=== PATIENT | female | born 1975 | race Two or more races ===

== ENCOUNTER 2017-11-22 14:21 | Inpatient (IN) | payer OTHER ==
[2017-11-22 14:29] VITALS: BMI 21.2
[2017-11-22] MEDS ORDERED: ONDANSETRON 4 MG/2 ML VIAL IVPUSH ONE ×2 (14:35→16:26)
[2017-11-22] MEDS ORDERED: ACETAMINOPHEN 1000 MG/100 ML VIAL (NON FORMULARY) IVPB ONE (14:35)
[2017-11-22] MEDS ORDERED: SODIUM CHLORIDE 1,000 ML IV STA ×2 (14:35→17:27)
[2017-11-22] MEDS ORDERED: ONDANSETRON 4 MG/2 ML VIAL ONE ×2 (14:49→16:32)
[2017-11-22] MEDS ORDERED: ACETAMINOPHEN INJECTION 100 ML IVPB ONE (14:49)
[2017-11-22] MEDS ORDERED: morphine CARPU-JECT 4 MG/1 ML DISP.SYRIN IVPUSH ONE (14:49)
[2017-11-22] MEDS ORDERED: morphine SULFATE 4 MG/ML VIAL ONE (14:50)
[2017-11-22 14:57] LABS: BASO % 0.7 % (0-2.0); EOS % 0.2 % (0-4.5); HEMATOCRIT 37.6 % (32.4-45.2); LYMPH % 18.1 % (8-40); MCH 24.1 pg (25.7-33.7); MEAN CELL VOLUME 75.5 fl (80-96); MEAN PLT VOLUME 8.1 fl (7.5-11.1); MONO % 3.2 % (3.8-10.2); NEUT % 77.8 % (42.8-82.8); PLATELET COUNT 342 K/MM3 (134-434); RBC 4.98 M/mm3 (3.60-5.2); RDW 17.3 % (11.6-15.6)
--- NOTE | 2017-11-22 15:01 | PDOC ---
History of Present Illness - General Chief Complaint: Pain, Acute Stated Complaint: ABD PAIN,VOMITING Time Seen by Provider: 11/22/17 14:28 History Source: Patient Exam Limitations: No Limitations - History of Present Illness Initial Comments: 11/22/17 14:55 Patient is a 42F with history of here today complaining of sudden onset of lower abdominal pain with nausea and vomiting this morning. Patient denies fevers, endorses chills. Denies blood in vomit. Last bowel movement this morning. Denies sick contacts and denies possible food poisoning. Denies dysuria and hematuria. Denies history of kidney stones. Patient denies pelvic pain and vaginal pain. States that she is currently on her period. Patient told triage she may be . Endorses marijuana use on weekends, last use last night. Past History - Past Medical History Allergies/Adverse Reactions: Allergies Allergy/AdvReac Type Severity Reaction Status Date / Time Penicillins Allergy Verified 11/22/17 14:28 Home Medications: Ambulatory Orders NK [No Known Home Medication] 11/22/17 COPD: No - Suicide/Smoking/Psychosocial Hx Smoking History: Never smoked Review of Systems - Review of Systems Comments:: 11/22/17 14:59 GENERAL/CONSTITUTIONAL: No fever +chills. No weakness. HEAD, EYES, EARS, NOSE AND THROAT: No change in vision. No sore throat. CARDIOVASCULAR: No chest pain or shortness of breath RESPIRATORY: No cough, wheezing, or hemoptysis. GASTROINTESTINAL: +nausea, +vomiting, no diarrhea or constipation. GENITOURINARY: No dysuria, frequency, or change in urination. MUSCULOSKELETAL: No joint or muscle swelling or pain. No neck or back pain. SKIN: No rash NEUROLOGIC: No headache, vertigo, loss of consciousness, or change in strength/ sensation. ENDOCRINE: No increased thirst. No abnormal weight change HEMATOLOGIC/LYMPHATIC: No anemia, easy bleeding, or history of blood clots. ALLERGIC/IMMUNOLOGIC: No hives or skin allergy. *Physical Exam - Vital Signs Last Vital Signs Temp Pulse Resp BP Pulse Ox 98.9 F 103 H 18 131/78 100 11/22/17 14:28 11/22/17 14:28 11/22/17 14:28 11/22/17 14:28 11/22/17 14:28 - Physical Exam Comments: 11/22/17 15:00 GENERAL: Awake, alert, and fully oriented, in acute distress, unable to lay still HEAD: No signs of trauma, normocephalic, atraumatic EYES: PERRLA, EOMI, sclera anicteric, conjunctiva clear ENT: Auricles normal inspection, hearing grossly normal, nares patent, oropharynx clear without exudates. Moist mucosa NECK: Normal ROM, supple, no lymphadenopathy, JVD, or masses LUNGS: No distress, speaks full sentences, clear to auscultation bilaterally HEART: Regular rate and rhythm, normal S1 and S2, no murmurs, rubs or gallops, peripheral pulses normal and equal bilaterally. ABDOMEN: Soft, tender in LLQ, RLQ, suprapubic region, normoactive bowel sounds. No guarding, no rebound. No masses EXTREMITIES: Normal inspection, Normal range of motion, no edema. No clubbing or cyanosis. NEUROLOGICAL: Cranial nerves II through XII grossly intact. Normal speech, no focal sensorimotor deficits SKIN: Warm, Dry, normal turgor, no rashes or lesions noted. ED Treatment Course - LABORATORY CBC & Chemistry Diagram: 11/22/17 14:47 11/22/17 14:47 - RADIOLOGY Radiology Studies Ordered: Category Date Time Status TRANSVAGINAL ULTRASOUND US [US] Stat Ultrasound 11/22/17 14:53 Ordered Medical Decision Making - Medical Decision Making 11/22/17 15:01 Patient is 42F with history of here today with abd pain and vomiting. Vital signs notable for slight tachycardia. Patient retching. DDx includes, but is not limited to: nephrolithiasis, ovarian torsion, hyperemesis gravidarum, cannaboid hyperemesis. Abdominal labs drawn, will start imaging with TVUS. Treated with zofran, tylenol, morphine, fluids. 11/22/17 16:23 Pelvic exam shows normal external genitalia, no adnexaal tenderness, no cmt. Reassessed, still retching. Diaphoretic. Given additional zofran. 11/22/17 19:42 Laboratory Tests 11/22/17 11/22/17 14:47 14:47 WBC 9.0 Hgb 12.0 Plt Count 342 Serum , Qual Negative CBC normal. Preg neg, CMP reassuring, lipase negative. TVUS shows normal flow to ovaries, no cysts. 11/22/17 22:09 CT shows gallbladder distention and pericholecystic fluid. Patient sent for GB US. Signed out to Dr Davila *DC/Admit/Observation/Transfer Diagnosis at time of Disposition: Abdominal pain - Discharge Dispostion Condition at time of disposition: Stable - Referrals - Patient Instructions - Post Discharge Activity
[2017-11-22 15:22] LABS: ALBUMIN 4.4 g/dl (3.4-5.0); ALK PHOS 58 U/L (45-117); ANION GAP 13 MMOL/L (8-16); BILIRUBIN,TOTAL 0.5 mg/dL (0.2-1); BLOOD UREA NITROGEN 9 mg/dL (7-18); CALCIUM 9.4 mg/dL (8.5-10.1); CHLORIDE 107 mmol/L (98-107); CO2 20 mmol/L (21-32); CREATININE 0.7 mg/dL (0.55-1.3); GLUCOSE,RANDOM 108 mg/dL (74-106); LIPASE 102 U/L (73-393); SGOT/AST 14 U/L (15-37); SGPT/ALT 17 U/L (13-61); SODIUM 140 mmol/L (136-145); TOT PROT 8.8 g/dl (6.4-8.2)
--- NOTE | 2017-11-22 18:12 | PDOC ---
Attending Attestation - Resident Resident Name: JaxTod case - ED Attending Attestation I have performed the following: I have examined & evaluated the patient, The case was reviewed & discussed with the resident, I agree w/resident's findings & plan, Exceptions are as noted - HPI HPI: 11/22/17 18:09 42 F with no PMH presents to ED with abdominal pain and vomiting. Pt states that she vomited several times today. Complains of diffuse abdominal pain. Denies F/C. Denies diarrhea/constipation. Pt states that she had a similar experience when she was and had hyperemesis but does not believe she's . Pt denies dysuria. Denies CP/SOB. Denies vaginal bleeding/discharge. Pt admits to occasional marijuana use, last use yesterday. Occasional ETOH. Denies other substances. - Physicial Exam PE: 11/22/17 18:10 "GENERAL: Awake, alert, and fully oriented, in no acute distress. HEAD: No signs of trauma EYES: PERRLA, EOMI, sclera anicteric, conjunctiva clear ENT: Auricles normal inspection, hearing grossly normal, nares patent, oropharynx clear without exudates. Moist mucosa NECK: Nontender, no stepoffs, Normal ROM, supple, no lymphadenopathy, JVD, or masses LUNGS: Breath sounds equal, clear to auscultation bilaterally. No wheezes, and no crackles HEART: Regular rate and rhythm, normal S1 and S2, no murmurs, rubs or gallops ABDOMEN: Soft, + diffuse TTP, normoactive bowel sounds. No guarding, no rebound. No masses EXTREMITIES: Normal range of motion, no edema. No clubbing or cyanosis. No cords, erythema, or tenderness NEUROLOGICAL: Cranial nerves II through XII intact. 5/5 strength and sensation in all extremities, Normal speech, normal gait, normal cerebellar function SKIN: Warm, Dry, normal turgor, no rashes or lesions noted." - Medical Decision Making 11/22/17 18:10 42 F with diffuse abdominal pain, N+V. UPT negative today. Will r/o pelvic pathology with TVUS. - Labs - TVUS - Consider CT - IVF, zofran
--- NOTE | 2017-11-22 22:02 | PDOC ---
*Physical Exam - Vital Signs Last Vital Signs Temp Pulse Resp BP Pulse Ox 98.8 F 92 H 17 117/64 100 11/22/17 21:48 11/22/17 21:48 11/22/17 21:48 11/22/17 21:48 11/22/17 21:48 - Physical Exam Comments: 11/22/17 21:56 Patient's care endorsed to me by Dr. Gibson at the end of his shift. This is a 42 YOF who p/w abdominal pain radiating to her back, then subsequently vomiting, then a sudden onset low abdominal pain which seems to have been precipitated by vomiting (e.g. muscle strain). On exam she was wretching in the ED, +suprapubic ttp, pelvic exam normal, and nausea was unresolved with multiple doses of antiemetics. TVUS was normal, abdominal/pelvic CT was done, showed pericholecystic fluid and GB distention, now pending GB US, likely needs admission. General Appearance: Yes: Nourished, Appropriately Dressed, Other (answers questions appropriately, appears relatively comfortable while at rest, slight uncomfortable appearance while laying down on bed from standing position). No: Apparent Distress Cardiovascular: positive: Regular Rhythm, Regular Rate, S1, S2. negative: JVD, Murmur Vascular Pulses: Dorsalis-Pedis (R): 2+, Doralis-Pedis (L): 2+ Comments:: bilateral radial pulses 2+ and equal Gastrointestinal/Abdominal: positive: Normal Bowel Sounds, Tender (epigastric and RUQ ttp which is mild-moderate but there is slight involuntary guarding), Flat, Soft. negative: Pulsatile Mass, Protuberent, Distended, Hernia, Hepatomegaly, Spleenomegaly Musculoskeletal: positive: Normal Inspection. negative: CVA Tenderness Extremity: positive: Normal Capillary Refill, Normal Inspection, Normal Range of Motion. negative: Tender Integumentary: positive: Normal Color, Dry, Warm. negative: Jaundice, Pale, Cold, Clammy, Diaphoresis, Rash, Ecchymosis Neurologic: positive: accounts receivable collector II-XII NML intact (grossly), Fully Oriented, Alert, Normal Mood/Affect, Normal Response, Motor Strength 5/5. negative: Facial Droop , Confused ED Treatment Course - LABORATORY CBC & Chemistry Diagram: 11/25/17 06:00 11/25/17 06:00 - ADDITIONAL ORDERS Additional order review: Laboratory Results 11/22/17 11/22/17 14:47 14:47 Sodium 140 Potassium 4.0 Chloride 107 Carbon Dioxide 20 L Anion Gap 13 BUN 9 Creatinine 0.7 Creat Clearance w eGFR > 60 Random Glucose 108 H Calcium 9.4 Total Bilirubin 0.5 AST 14 L ALT 17 Alkaline Phosphatase 58 Total Protein 8.8 H Albumin 4.4 Lipase 102 Serum , Qual Negative 11/22/17 14:47 RBC 4.98 MCV 75.5 L MCHC 32.0 RDW 17.3 H MPV 8.1 Neutrophils % 77.8 Lymphocytes % 18.1 Monocytes % 3.2 L Eosinophils % 0.2 Basophils % 0.7 - Medications Given in the ED: ED Medications Discontinued Medications Generic Name Dose Route Start Last Admin Trade Name Freq PRN Reason Stop Dose Admin Acetaminophen 1,000 mg 11/22/17 14:35 11/22/17 15:05 Ofirmev Injection - IVPB 11/22/17 14:36 1,000 mg ONCE ONE Administration Sodium Chloride 1,000 mls @ 1,000 mls/hr 11/22/17 14:35 11/22/17 15:05 Normal Saline - IV 11/22/17 15:34 1,000 mls/hr ASDIR STA Administration Sodium Chloride 1,000 mls @ 1,000 mls/hr 11/22/17 17:27 11/22/17 18:22 Normal Saline - IV 11/22/17 18:26 1,000 mls/hr ASDIR STA Administration Morphine Sulfate 4 mg 11/22/17 14:49 11/22/17 15:05 Morphine Injection - IVPUSH 11/22/17 14:50 4 mg ONCE ONE Administration Ondansetron HCl 4 mg 11/22/17 14:35 11/22/17 15:05 Zofran Injection IVPUSH 11/22/17 14:36 4 mg ONCE ONE Administration Ondansetron HCl 4 mg 11/22/17 16:26 11/22/17 16:39 Zofran Injection IVPUSH 11/22/17 16:27 4 mg ONCE ONE Administration Medical Decision Making - Medical Decision Making 11/22/17 23:30 Adult female Pt p/w RUQ abdominal pain. Initial Vital Signs Temp Pulse Resp BP Pulse Ox 98.9 F 103 H 18 131/78 100 11/22/17 14:28 11/22/17 14:28 11/22/17 14:28 11/22/17 14:28 11/22/17 14:28 Exam: As noted in Physical Exam section. DDX IBNLT: cholecystitis (calculous vs. acalculous), choledocholithiasis, cholangitis, pancreatitis, appendicitis, gastritis, PUD, colitis, diverticulitis wwo abscess or perforation, AAA/AD, ACS, renal colic, obstructive uropathy, UTI/pyelonephritis, hernia, SBO, mesenteric/bowel ischemia , bowel perforation, malignancy, ovarian torsion, ovarian cyst, ectopic , PID, TOA, cervicitis, endometritis, salpingitis, oophoritis, Mitchell- Lopez-Mikel syndrome, primary dysmenorrhea, endometriosis, fibroids, constipation, gas, musculoskeletal, etc. W/U ordered: Labs as noted below, TVUS, CT A/P, GB US TX ordered by day team: Ofirmev, IVF, Morphine, Zofran TVUS: CT A/P: GB US: Laboratory Tests 11/22/17 11/22/17 11/22/17 14:47 14:47 14:47 WBC 9.0 RBC 4.98 Hgb 12.0 Hct 37.6 MCV 75.5 L MCH 24.1 L MCHC 32.0 RDW 17.3 H Plt Count 342 MPV 8.1 Absolute Neuts (auto) 7.0 Neutrophils % 77.8 Lymphocytes % 18.1 Monocytes % 3.2 L Eosinophils % 0.2 Basophils % 0.7 Nucleated RBC % 0 Sodium 140 Potassium 4.0 Chloride 107 Carbon Dioxide 20 L Anion Gap 13 BUN 9 Creatinine 0.7 Creat Clearance w eGFR > 60 Random Glucose 108 H Calcium 9.4 Total Bilirubin 0.5 AST 14 L ALT 17 Alkaline Phosphatase 58 Total Protein 8.8 H Albumin 4.4 Lipase 102 Serum , Qual Negative Urine Color Urine Appearance Urine pH Ur Specific [place] Urine Protein Urine Glucose (UA) Urine Ketones Urine Blood Urine Nitrite Urine Bilirubin Urine Urobilinogen Ur Leukocyte Esterase Urine WBC (Auto) Urine RBC (Auto) Ur Epithelial Cells Opiates Screen Methadone Screen Barbiturate Screen Phencyclidine Screen Ur Amphetamines Screen MDMA (Ecstasy) Screen Benzodiazepines Screen Cocaine Screen U Marijuana (THC) Screen 11/22/17 11/22/17 21:50 21:50 WBC RBC Hgb Hct MCV MCH MCHC RDW Plt Count MPV Absolute Neuts (auto) Neutrophils % Lymphocytes % Monocytes % Eosinophils % Basophils % Nucleated RBC % Sodium Potassium Chloride Carbon Dioxide Anion Gap BUN Creatinine Creat Clearance w eGFR Random Glucose Calcium Total Bilirubin AST ALT Alkaline Phosphatase Total Protein Albumin Lipase Serum , Qual Urine Color Ltyellow Urine Appearance Clear Urine pH 5.0 Ur Specific [place] 1.060 H Urine Protein Negative Urine Glucose (UA) Negative Urine Ketones 1+ H Urine Blood 3+ H Urine Nitrite Negative Urine Bilirubin Negative Urine Urobilinogen Negative Ur Leukocyte Esterase Negative Urine WBC (Auto) 10 Urine RBC (Auto) 115 Ur Epithelial Cells Rare Opiates Screen Positive A* Methadone Screen Negative Barbiturate Screen Negative Phencyclidine Screen Negative Ur Amphetamines Screen Negative MDMA (Ecstasy) Screen Negative Benzodiazepines Screen Negative Cocaine Screen Negative U Marijuana (THC) Screen Positive A* Reassessment: Patient remains moderately ttp in RUQ, mildly ttp epigastrium. No longer vomiting. Vital Signs Temperature 98.8 F 11/22/17 21:48 Pulse Rate 92 H 11/22/17 21:48 Respiratory Rate 17 11/22/17 21:48 Blood Pressure 117/64 11/22/17 21:48 O2 Sat by Pulse Oximetry (%) 100 11/22/17 21:48 11/22/17 23:31 The Pts symptoms persist despite ED treatments; multiple analgesics. The Pt is unsafe for discharge at this time. They require further hospital observation, workup, and treatment. [facility] sent to [facility] for admission. Blank Decision to Admit order placed. *DC/Admit/Observation/Transfer Diagnosis at time of Disposition: Abdominal pain Qualifiers: Abdominal location: unspecified location Qualified Code(s): R10.9 - Unspecified abdominal pain Vomiting Qualifiers: Vomiting type: unspecified Vomiting Intractability: non-intractable Nausea presence: with nausea Qualified Code(s): R11.2 - Nausea with vomiting, unspecified - Discharge Dispostion Condition at time of disposition: Guarded Decision to Admit order: Yes - Referrals - Patient Instructions - Post Discharge Activity
[2017-11-22 22:09] LABS: URINE APPEARANCE CLEAR; URINE BILIRUBIN NEGATIVE (<2.0 mg/dL); URINE COLOR LTYELLOW; URINE GLUCOSE (UA) NEGATIVE (NEGATIVE); URINE KETONE 1+ (NEGATIVE); URINE LEUK ESTERASE NEGATIVE (NEGATIVE); URINE NITRITE NEGATIVE (NEGATIVE); URINE PROTEIN NEGATIVE (NEGATIVE); URINE UROBILINOGEN NEGATIVE mg/dL (0.2-1.0)
[2017-11-22 22:14] LABS: EPI CELLS RARE /HPF (FEW)
[2017-11-22 22:19] LABS: COCAINE, UR NEGATIVE ng/ml (CUTOFF=300); METHADONE, UR NEGATIVE ng/ml (CUTOFF=300); PHENCYCLIDINE,URINE NEGATIVE ng/ml (CUTOFF=25); URINE BARBITURATES NEGATIVE ng/ml (CUTOFF=200); URINE BENZODIAZEPINES NEGATIVE ng/ml (CUTOFF=200)
[2017-11-22 22:22] LABS: URINE AMPHETAMINES NEGATIVE ng/ml (CUTOFF=500)
[2017-11-22 22:33] LABS: OPIATES, URI POSITIVE ng/ml (CUTOFF=300)
--- NOTE | 2017-11-23 00:25 | PN ---
Teaching Attending Note Name of Resident: Arlene Starr ATTENDING PHYSICIAN STATEMENT I saw and evaluated the patient. I reviewed the resident's note and discussed the case with the resident. I agree with the resident's findings and plan as documented. SUBJECTIVE: Patient is a 42 year old woman with history of penicillin allergy and presenting with complaint of sudden onset of lower abdominal pain with nausea and vomiting this morning. Patient denies fevers, but had chills. Denies blood in vomit. Last bowel movement this morning. Denies sick contacts, possible food poisoning, dysuria, hematuria, history of kidney stones, pelvic pain or vaginal pain. She wretching in the ER and vomited. States that she is currently on her period. Patient told triage she may be though serum test was negative. Uses marijuana on weekends. Urine toxicology showed marijuana and opiates. Pelvic exam and transvaginal US by ER staff were negative. CT showed gall bladder distension and pericholecystic fluid. OBJECTIVE: Alert Vital Signs Period Temp Pulse Resp BP Sys/Meléndez Pulse Ox Last 24 Hr 98.8 F-98.9 F 92-103 17-18 117-131/64-78 100-100 HEENT: No Jaundice, eye redness or discharge, PERRLA, EOMI. Normocephalic, atraumatic. External ears are normal and hearing is grossly intact. No nasal discharge. Neck: Supple, nontender. No palpable adenopathy or thyromegaly. No JVD Chest: Good effort. Clear to auscultation and percussion. Heart: Regular. No S3, rub or murmur Abdomen: Not distended, soft, suprapubic and RUQ tenderness and no HSM. No rebound or guarding. Normoactive bowel sounds. Ext: Peripheral pulses intact. No leg edema. Skin: Warm and dry. No petechiae, rash or ecchymosis. Neuro: Alert. Oriented x3. CN 2-12 grossly intact. Sensation grossly intact in all four extremities and DTR are symmetric. Home Medications Medication Instructions Recorded NK [No Known Home Medication] 11/22/17 Abnormal Lab Results 11/22/17 11/22/17 11/22/17 14:47 14:47 21:50 MCV 75.5 L MCH 24.1 L RDW 17.3 H Monocytes % 3.2 L Carbon Dioxide 20 L Random Glucose 108 H AST 14 L Total Protein 8.8 H Ur Specific [employer] 1.060 H Urine Ketones 1+ H Urine Blood 3+ H Opiates Screen U Marijuana (THC) Screen 11/22/17 21:50 MCV MCH RDW Monocytes % Carbon Dioxide Random Glucose AST Total Protein Ur Specific [employer] Urine Ketones Urine Blood Opiates Screen Positive A* U Marijuana (THC) Screen Positive A* Current Medications Generic Name Dose Route Start Last Admin Trade Name Freq PRN Reason Stop Dose Admin Enoxaparin Sodium 40 mg 11/23/17 10:00 Lovenox - SQ DAILY [facility] Ceftriaxone Sodium 1 gm/ 100 mls @ 200 mls/hr 11/23/17 10:00 Dextrose IVPB DAILY [facility] Protocol Metronidazole 500 mg in 100 mls @ 100 mls/hr 11/23/17 02:00 Flagyl 500mg Premixed Ivpb - IVPB Q8H-IV KRAEEM Sodium Chloride 1,000 mls @ 83 mls/hr 11/23/17 01:30 Normal Saline - IV ASDIR [facility] Insulin Aspart 1 vial 11/23/17 07:00 Novolog Vial Sliding Scale - SQ ACHS [facility] Protocol Morphine Sulfate 4 mg 11/23/17 01:30 Morphine Injection - IVPUSH Q4H PRN PAIN LEVEL 7 - 10 Ondansetron HCl 4 mg 11/23/17 01:36 Zofran Injection IVPUSH Q4H PRN NAUSEA AND/OR VOMITING ASSESSMENT AND PLAN: 1. Possible cholecystitis - Will get an MRCP and treat with IV Rocephin and Flagyl. Use morphine for pain control and give IV NS at 100 ml/hour. Consult ID , GI and Surgery.. 2. DVT prophylaxis - Lovenox 40 mg SQ q 24 hours. 3. Advance directives - Full code
[2017-11-23] MEDS ORDERED: morphine SULFATE 4 MG/ML VIAL IVPUSH PRN (01:30)
[2017-11-23] MEDS: SODIUM CHLORIDE 1,000 ML IV SCH ×2 (03:21→18:32)
--- NOTE | 2017-11-23 05:16 | HP ---
CHIEF COMPLAINT: Abdominal pain PCP: None HISTORY OF PRESENT ILLNESS: 42 y/o F with PMHx of GERD was BIBEMS with sudden onset Lower Abdominal pain. Patient woke up this morning feeling lower abdominal cramps (currently menstruating) and took tylenol for pain. After having a BM this morning, All of a sudden, she began to experience a lower abdominal pain. She describes it as a Dull Ache in the RUQ and RLQ, 10/10 at worst, that came on all of a sudden. The pain was then followed by multiple episodes of nonbloody, green vomiting. She then felt she could not breathe and called for EMS. This is the first time she has experienced these symptoms. Patient says she was able to tolerate dinner and went to bed without experiencing any symptoms. She is unable to identify any triggering or reliving factors. She additionally experienced subjective fevers and chills. Denies any Chest pain and SOB. Currently her pain is now controlled, 4/10 and she no longer experiencing nausea. Patient has a hx of chlamydia in her 20's. Denies any hx of Kidney stones or UTI. 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 Residence: Home with Children and dog Ambulation: On her own Family History: Mother: MVP, Thyroid issues, Gall bladder issues (will have GB surgery this week as per patient) Father: HTN, HLD, Glaucoma Allergies Penicillins Allergy (Verified 11/22/17 14:28) HOME MEDICATIONS: Home Medications Medication Instructions Recorded NK [No Known Home Medication] 11/22/17 REVIEW OF SYSTEMS CONSTITUTIONAL: Present: Subjective fever, chills Absent: diaphoresis, generalized weakness, malaise, loss of appetite, weight change HEENT: Absent: rhinorrhea, nasal congestion, throat pain, throat swelling, difficulty swallowing, mouth swelling, ear pain, eye pain, visual changes CARDIOVASCULAR: Absent: chest pain, syncope, palpitations, irregular heart rate, lightheadedness , peripheral edema RESPIRATORY: Absent: cough, shortness of breath, dyspnea with exertion, orthopnea, wheezing, stridor, hemoptysis GASTROINTESTINAL: Present: abdominal pain, nausea, vomiting, Absent: abdominal distension, diarrhea, constipation, melena, hematochezia GENITOURINARY: Absent: dysuria, frequency, urgency, hesitancy, hematuria, flank pain, genital pain MUSCULOSKELETAL: Absent: myalgia, arthralgia, joint swelling, back pain, neck pain SKIN: Absent: rash, itching, pallor HEMATOLOGIC/IMMUNOLOGIC: Absent: easy bleeding, easy bruising, lymphadenopathy, frequent infections ENDOCRINE: Absent: unexplained weight gain, unexplained weight loss, heat intolerance, cold intolerance NEUROLOGIC: Absent: headache, focal weakness or paresthesias, dizziness, unsteady gait, seizure, mental status changes, bladder or bowel incontinence PSYCHIATRIC: Absent: anxiety, depression, suicidal or homicidal ideation, hallucinations. PHYSICAL EXAMINATION Vital Signs - 24 hr 11/22/17 11/22/17 11/23/17 14:28 21:48 01:34 Temperature 98.9 F 98.8 F 98.6 F Pulse Rate 103 H Pulse Rate [ 92 H 84 Apical] Respiratory 18 17 18 Rate Blood Pressure 131/78 Blood Pressure 117/64 121/69 [Right Arm] O2 Sat by Pulse 100 100 100 Oximetry (%) 11/23/17 11/23/17 11/23/17 02:20 02:30 02:40 Temperature 98.4 F 98.4 F Pulse Rate 83 83 Pulse Rate [ Apical] Respiratory 18 18 Rate Blood Pressure 131/77 131/77 Blood Pressure [Right Arm] O2 Sat by Pulse 98 98 Oximetry (%) GENERAL: Awake, alert, and fully oriented, in no acute distress. HEAD: NCAT EYES: PERRLA, EOMI THROAT: Oropharynx clear without exudates. Moist mucous membranes. NECK: No JVD LUNGS: Breath sounds equal, clear to auscultation bilaterally. No wheezes. HEART: Regular rate and rhythm, normal S1 and S2 without murmur. ABDOMEN: Soft, Tender to palpation the RUQ, RLQ and Midepigastric regions. Not distended, normoactive bowel sounds, Negative murphys sign. No guarding MUSCULOSKELETAL: Right CVA tenderness EXTREMITIES: 2+ pulses, No calf tenderness. No peripheral edema. SKIN: Warm, dry, no rashes or lesions noted, normal capillary refill Laboratory Results - last 24 hr 11/22/17 11/22/17 11/22/17 14:47 14:47 14:47 WBC 9.0 RBC 4.98 Hgb 12.0 Hct 37.6 MCV 75.5 L MCH 24.1 L MCHC 32.0 RDW 17.3 H Plt Count 342 MPV 8.1 Absolute Neuts (auto) 7.0 Neutrophils % 77.8 Lymphocytes % 18.1 Monocytes % 3.2 L Eosinophils % 0.2 Basophils % 0.7 Nucleated RBC % 0 Sodium 140 Potassium 4.0 Chloride 107 Carbon Dioxide 20 L Anion Gap 13 BUN 9 Creatinine 0.7 Creat Clearance w eGFR > 60 Random Glucose 108 H Calcium 9.4 Total Bilirubin 0.5 AST 14 L ALT 17 Alkaline Phosphatase 58 Total Protein 8.8 H Albumin 4.4 Lipase 102 Serum , Qual Negative Urine Color Urine Appearance Urine pH Ur Specific [place] Urine Protein Urine Glucose (UA) Urine Ketones Urine Blood Urine Nitrite Urine Bilirubin Urine Urobilinogen Ur Leukocyte Esterase Urine WBC (Auto) Urine RBC (Auto) Ur Epithelial Cells Opiates Screen Methadone Screen Barbiturate Screen Phencyclidine Screen Ur Amphetamines Screen MDMA (Ecstasy) Screen Benzodiazepines Screen Cocaine Screen U Marijuana (THC) Screen 11/22/17 11/22/17 21:50 21:50 WBC RBC Hgb Hct MCV MCH MCHC RDW Plt Count MPV Absolute Neuts (auto) Neutrophils % Lymphocytes % Monocytes % Eosinophils % Basophils % Nucleated RBC % Sodium Potassium Chloride Carbon Dioxide Anion Gap BUN Creatinine Creat Clearance w eGFR Random Glucose Calcium Total Bilirubin AST ALT Alkaline Phosphatase Total Protein Albumin Lipase Serum , Qual Urine Color Ltyellow Urine Appearance Clear Urine pH 5.0 Ur Specific [place] 1.060 H Urine Protein Negative Urine Glucose (UA) Negative Urine Ketones 1+ H Urine Blood 3+ H Urine Nitrite Negative Urine Bilirubin Negative Urine Urobilinogen Negative Ur Leukocyte Esterase Negative Urine WBC (Auto) 10 Urine RBC (Auto) 115 Ur Epithelial Cells Rare Opiates Screen Positive A* Methadone Screen Negative Barbiturate Screen Negative Phencyclidine Screen Negative Ur Amphetamines Screen Negative MDMA (Ecstasy) Screen Negative Benzodiazepines Screen Negative Cocaine Screen Negative U Marijuana (THC) Screen Positive A* ASSESSMENT/PLAN: 42 y/o F with PMHx of GERD was BIBEMS with sudden onset Lower Abdominal pain accompanied with Nausea and vomiting. She experiences tenderness to palpation in the RUQ, RLQ and Midepigastric regions, Negative murphys sign and Right CVA tenderness. Her Serum test was negative. Her UTox was positive for Opiates and Marijuana use. CT A/P revealed mild gallbladder wall thickening with small amount of pericholecystic fluid but no calculus is seen. Abdominal ultrasound revealed gallbladder findings suggestive of Adenomyomatosis but no definite evidence of cholelithiasis or acute cholecystitis. Patient will be observed in med-surg. 1. RUQ Abdominal pain - Unclear etiology, possibly due to Adenomyomatosis VS Acute Cholecystitis - HIDA Scan ordered - NPO for possible procedure - Ceftriaxone 1gm daily, Metronidazole 500mg Q8H - Morphine 4mg Q4h PRN - Zogran 4mg Q4h PRN - NS @ 83 mls/hr - GI (Dr. Tang) consulted - General Surgery (Dr. Pierre) consulted - ID (Dr. Martinez) consulted 2. FEN - NS @ 83 mls/hr - Lytes WNL - NPO 3. PPx - DVT: Lovenox 40mg Dispo: Observe on Med-Surg Visit type - Emergency Visit Emergency Visit: Yes ED Registration Date: 11/22/17 Care time: The patient presented to the Emergency Department on the above date and was hospitalized for further evaluation of their emergent condition. - New Patient This patient is new to me today: Yes Date on this admission: 11/23/17 - Critical Care Critical Care patient: No Hospitalist Screening - Colonoscopy Questionnaire Colonoscopy Questionnaire: Colonoscopy Questionnaire - Patient: 50 - 75 years old and never had a screening colonoscopy: Unknown History of colon or rectal polyps, or CA: Unknown History of IBD, Crohn's disease or UC: Unknown History of abdominal radiation therapy as a child: Unknown - Relative: 1 with colon or rectal CA, or polyps at age 60 or younger: Unknown Colon or rectal CA diagnosed at age 45 or younger: Unknown Multiple relatives with colon or rectal CA: Unknown - Outcome: Screening Result: Negative Screen
[2017-11-23] MEDS: INSULIN SLIDING SCALE (NOVOLOG) 1 VIAL SQ SCH ×4 (06:05→22:00)
[2017-11-23 07:10] LABS: BASO % 0.4 % (0-2.0); EOS % 0.3 % (0-4.5); HEMATOCRIT 28.8 % (32.4-45.2); HEMOGLOBIN 9.1 GM/dL (10.7-15.3); LYMPH % 31.9 % (8-40); MCH 23.9 pg (25.7-33.7); MCHC 31.5 g/dl (32.0-36.0); MEAN CELL VOLUME 75.9 fl (80-96); MONO % 6.4 % (3.8-10.2); PLATELET COUNT 232 K/MM3 (134-434); RDW 16.9 % (11.6-15.6); WHITE BLOOD COUNT 6.6 K/mm3 (4.0-10.0)
--- NOTE | 2017-11-23 07:11 | CONSULT ---
Consult Consult Specialty:: General Surgery Reason for Consultation:: Abdominal pain - History of Present Illness Chief Complaint: Abdominal Pain History of Present Illness: 42 yo female PMH GERD was BIBEMS with sudden onset lower abdominal pain. Patient woke up this morning feeling lower abdominal cramps (currently menstruating) and took tylenol for pain. After having a BM this morning, All of a sudden, she began to experience a lower abdominal pain. She describes it as a Dull Ache in the RUQ and RLQ, 10/10 at worst, that came on all of a sudden. The pain was then followed by multiple episodes of nonbloody, green vomiting. She then felt she could not breathe and called for EMS. This is the first time she has experienced these symptoms. Patient says she was able to tolerate dinner and went to bed without experiencing any symptoms. She is unable to identify any triggering or reliving factors. She additionally experienced subjective fevers and chills. Denies any Chest pain and SOB. Currently her pain is now controlled, 4/10 and she no longer experiencing nausea. CT scan shows GB with pericholecystic fluid. HIDA show no cyst duct obstruction and normal gallbladder filling. She has had RUQ andominal pain for years. We were asked to assess - History Source History Provided By: Patient, Medical Record Limitations to Obtaining History: No Limitations - Past Medical History ...: No - Alcohol/Substance Use Hx Alcohol Use: No - Smoking History Smoking history: Never smoked - Social History Place of : [facility] History of Recent Travel: No Home Medications - Allergies Allergies/Adverse Reactions: Allergies Allergy/AdvReac Type Severity Reaction Status Date / Time Penicillins Allergy Verified 11/22/17 14:28 - Home Medications Home Medications: Ambulatory Orders NK [No Known Home Medication] 11/22/17 Review of Systems - Review of Systems Constitutional: denies: Chills, Fever Eyes: denies: Blurred Vision, Recent Change in Vision HENT: denies: Difficult Swallowing, Throat Pain Neck: denies: Pain on Movement, Tenderness Cardiovascular: denies: Chest Pain, Palpitations Respiratory: denies: Cough, SOB Gastrointestinal: reports: Abdominal Pain, Indigestion Genitourinary: denies: Discharge, Dysuria, Flank Pain, Frequency Breasts: reports: No Symptoms Reported. denies: Pain, Skin Changes Musculoskeletal: denies: Extremity Pain, Joint Swelling, Muscle Cramps, Muscle Weakness Integumentary: denies: Bruising, Change in Color, Pallor, Pruritis Neurological: denies: Seizure, Syncope Endocrine: denies: Unexplained Weight Gain, Unexplained Weight Loss Hematology/Lymphatic: denies: Easily Bruised, Excessive Bleeding Psychiatric: denies: Anxiety, Depression Physical Exam Vital Signs: Vital Signs Temperature 98.9 F 11/23/17 06:00 Pulse Rate 86 11/23/17 06:00 Respiratory Rate 16 11/23/17 06:00 Blood Pressure 123/86 11/23/17 06:00 O2 Sat by Pulse Oximetry (%) 98 11/23/17 02:40 Constitutional: Yes: Well Nourished, No Distress, Calm Eyes: Yes: Conjunctiva Clear, EOM Intact HENT: Yes: Atraumatic, Normocephalic Neck: Yes: Supple, Trachea Midline Cardiovascular: Yes: Regular Rate and Rhythm, S1, S2 Respiratory: Yes: Regular, CTA Bilaterally Gastrointestinal: Yes: Normal Bowel Sounds, Soft, Tenderness (epigastric, - murphys). No: Abdomen, Obese, Palpable Mass, Pulsatile Mass, Rectal Bleeding, Tenderness, Epigastrium, Tenderness, Rebound (minimal discomfort epigastrium) ...Rectal Exam: Yes: Deferred Renal/: No: CVA Tenderness - Left, CVA Tenderness - Right Extremities: No: Cool, Cyanosis Edema: No Peripheral Pulses WNL: Yes Integumentary: No: Incision, Jaundice, Pressure Ulcer Neurological: Yes: Alert, Oriented Psychiatric: Yes: Alert, Oriented Imaging - Results Cat Scan: Report Reviewed (Thickened lining of GB with pericholecystic fluid), Image Reviewed Ultrasound: Report Reviewed, Image Reviewed (GB wall thickeing no choledocholithiasis) MRI: Report Reviewed, Image Reviewed (HIDA negative) Problem List - Problems (1) Adenomyomatosis of gallbladder Assessment/Plan: 42yo female with Adenomyomatosis of GB with colic symptoms NPO and IVF hydration Recommend elective cholecystectcomy Discussed with patient risks, benefits and alternatives of laparoscopic possible open olivier cystectomy, including but not limited to bleeding, infection , injury to adjacent structures, leak or injury, intraabdominal abscess, incisional hernia, need for further procedures, ; alternatives include antibiotics, delayed or no surgery - risks of this include failure of nonoperative therapy, perforation, sepsis, recurrence, . Patient desires to proceed with operation - will take to OR for above. Informed consent signed for same. Thank you for the opportunity to participate in the care of this patient. Code(s): D13.5 - BENIGN NEOPLASM OF EXTRAHEPATIC BILE DUCTS (2) Biliary colic Code(s): K80.50 - CALCULUS OF BILE DUCT W/O CHOLANGITIS OR CHOLECYST W/O OBST (3) GERD (gastroesophageal reflux disease) Code(s): K21.9 - GASTRO-ESOPHAGEAL REFLUX DISEASE WITHOUT ESOPHAGITIS Qualifiers: Esophagitis presence: without esophagitis Qualified Code(s): K21.9 - Gastro -esophageal reflux disease without esophagitis
[2017-11-23 07:41] LABS: ALBUMIN 3.1 g/dl (3.4-5.0); ANION GAP 7 MMOL/L (8-16); BLOOD UREA NITROGEN 7 mg/dL (7-18); CALCIUM 7.8 mg/dL (8.5-10.1); CHLORIDE 110 mmol/L (98-107); CO2 23 mmol/L (21-32); GLUCOSE,RANDOM 84 mg/dL (74-106); PHOSPHOROUS 2.6 mg/dL (2.5-4.9); POTASSIUM 3.6 mmol/L (3.5-5.1); SODIUM 140 mmol/L (136-145)
[2017-11-23 07:44] LABS: ALK PHOS 41 U/L (45-117); BILIRUBIN,TOTAL 0.4 mg/dL (0.2-1); CREATININE 0.5 mg/dL (0.55-1.3); SGOT/AST 16 U/L (15-37); SGPT/ALT 13 U/L (13-61); TOT PROT 6.3 g/dl (6.4-8.2)
[2017-11-23] MEDS ORDERED: cefTRIAXone SODIUM 1 GM VIAL ONE (09:22)
[2017-11-23] MEDS ORDERED: DEXTROSE 5%-WATER - 50 ML IVPB ONE (09:22)
[2017-11-23] MEDS: CEFTRIAXONE 1 GM in DEXTROSE 5%-WATER - 50 ML IVPB SCH (09:24)
[2017-11-23] MEDS ORDERED: ENOXAPARIN NA (PORCINE) 40 MG/0.4 ML DISP.SYRIN SQ SCH (10:00)
--- NOTE | 2017-11-23 10:43 | PN ---
Addendum entered and electronically signed by Fransisco Dominique, RESIDENT 19:26: Prophylaxis: Lovenox stopped, and SCDs ordered for B/L legs, in anticipation of lap olivier tomorrow. Original Note: Physical Exam: SUBJECTIVE: Patient seen and examined at bedside this morning, resting comfortably in bed. No acute distress. complains of dull and cramping 4/10 abdominal pain in right upper and lower quadrants, radiating to right side back. Unchanged with movement or position. OBJECTIVE: Vital Signs Period Temp Pulse Resp BP Sys/Meléndez Pulse Ox Last 24 Hr 98.4 F-99.0 F 83-103 16-20 117-143/64-88 98-100 GENERAL: The patient is awake, alert, and fully oriented, in no acute distress. HEAD: Normocephalic, atraumatic. EYES: PERRLA, extraocular movements intact, sclera anicteric, conjunctiva clear. ENT: Oropharynx clear without exudates, dry mucous membranes. NECK: Trachea midline, full range of motion, supple without lymphadenopathy. LUNGS: Good inspiratory effort. Breath sounds equal, clear to auscultation bilaterally. No wheezes. No accessory muscle use. HEART: Regular rate and rhythm, S1, S2 without murmur, rub or gallop. ABDOMEN: Soft, nondistended. Tender to palpation at right upper and lower abdominal quadrant. Normoactive bowel sounds X4 quadrants. No guarding, no rebound. No hepatosplenomegaly appreciated. EXTREMITIES: 2+ radial and dorsalis pedis pulses. Warm. No lower extremity edema b/l. NEUROLOGICAL: Cranial nerves II through XII grossly intact. Normal speech. No gross focal deficits. Strength 5/5 b/l upper and lower extremities. PSYCH: Appropriate mood and affect upon my encounter today. SKIN: Warm, dry. No rashes or lesions noted. Laboratory Results - last 24 hr 11/22/17 11/22/17 11/22/17 14:47 14:47 14:47 WBC 9.0 RBC 4.98 Hgb 12.0 Hct 37.6 MCV 75.5 L MCH 24.1 L MCHC 32.0 RDW 17.3 H Plt Count 342 MPV 8.1 Absolute Neuts (auto) 7.0 Neutrophils % 77.8 Lymphocytes % 18.1 Monocytes % 3.2 L Eosinophils % 0.2 Basophils % 0.7 Nucleated RBC % 0 Sodium 140 Potassium 4.0 Chloride 107 Carbon Dioxide 20 L Anion Gap 13 BUN 9 Creatinine 0.7 Creat Clearance w eGFR > 60 POC Glucometer Random Glucose 108 H Calcium 9.4 Phosphorus Magnesium Total Bilirubin 0.5 AST 14 L ALT 17 Alkaline Phosphatase 58 Total Protein 8.8 H Albumin 4.4 Lipase 102 Serum , Qual Negative Urine Color Urine Appearance Urine pH Ur Specific [place] Urine Protein Urine Glucose (UA) Urine Ketones Urine Blood Urine Nitrite Urine Bilirubin Urine Urobilinogen Ur Leukocyte Esterase Urine WBC (Auto) Urine RBC (Auto) Ur Epithelial Cells Opiates Screen Methadone Screen Barbiturate Screen Phencyclidine Screen Ur Amphetamines Screen MDMA (Ecstasy) Screen Benzodiazepines Screen Cocaine Screen U Marijuana (THC) Screen 11/22/17 11/22/17 11/23/17 21:50 21:50 06:04 WBC RBC Hgb Hct MCV MCH MCHC RDW Plt Count MPV Absolute Neuts (auto) Neutrophils % Lymphocytes % Monocytes % Eosinophils % Basophils % Nucleated RBC % Sodium Potassium Chloride Carbon Dioxide Anion Gap BUN Creatinine Creat Clearance w eGFR POC Glucometer 89 Random Glucose Calcium Phosphorus Magnesium Total Bilirubin AST ALT Alkaline Phosphatase Total Protein Albumin Lipase Serum , Qual Urine Color Ltyellow Urine Appearance Clear Urine pH 5.0 Ur Specific [place] 1.060 H Urine Protein Negative Urine Glucose (UA) Negative Urine Ketones 1+ H Urine Blood 3+ H Urine Nitrite Negative Urine Bilirubin Negative Urine Urobilinogen Negative Ur Leukocyte Esterase Negative Urine WBC (Auto) 10 Urine RBC (Auto) 115 Ur Epithelial Cells Rare Opiates Screen Positive A* Methadone Screen Negative Barbiturate Screen Negative Phencyclidine Screen Negative Ur Amphetamines Screen Negative MDMA (Ecstasy) Screen Negative Benzodiazepines Screen Negative Cocaine Screen Negative U Marijuana (THC) Screen Positive A* 11/23/17 11/23/17 06:30 06:30 WBC 6.6 RBC 3.80 Hgb 9.1 L Hct 28.8 L D MCV 75.9 L MCH 23.9 L MCHC 31.5 L RDW 16.9 H Plt Count 232 D MPV 8.0 Absolute Neuts (auto) 4.0 Neutrophils % 61.0 D Lymphocytes % 31.9 D Monocytes % 6.4 D Eosinophils % 0.3 Basophils % 0.4 Nucleated RBC % 0 Sodium 140 Potassium 3.6 Chloride 110 H Carbon Dioxide 23 Anion Gap 7 L BUN 7 Creatinine 0.5 L Creat Clearance w eGFR > 60 POC Glucometer Random Glucose 84 Calcium 7.8 L Phosphorus 2.6 Magnesium 2.0 Total Bilirubin 0.4 AST 16 ALT 13 Alkaline Phosphatase 41 L Total Protein 6.3 L Albumin 3.1 L Lipase Serum , Qual Urine Color Urine Appearance Urine pH Ur Specific [place] Urine Protein Urine Glucose (UA) Urine Ketones Urine Blood Urine Nitrite Urine Bilirubin Urine Urobilinogen Ur Leukocyte Esterase Urine WBC (Auto) Urine RBC (Auto) Ur Epithelial Cells Opiates Screen Methadone Screen Barbiturate Screen Phencyclidine Screen Ur Amphetamines Screen MDMA (Ecstasy) Screen Benzodiazepines Screen Cocaine Screen U Marijuana (THC) Screen Active Medications Generic Name Dose Route Start Last Admin Trade Name Freq PRN Reason Stop Dose Admin Enoxaparin Sodium 40 mg 11/23/17 10:00 11/23/17 09:24 Lovenox - SQ 40 mg DAILY KAREEM Administration Ceftriaxone Sodium 1 gm/ 50 mls @ 100 mls/hr 11/23/17 10:00 11/23/17 09:24 Dextrose IVPB 100 mls/hr DAILY KAREEM Administration Protocol Metronidazole 500 mg in 100 mls @ 100 mls/hr 11/23/17 02:00 11/23/17 03:21 Flagyl 500mg Premixed Ivpb - IVPB 100 mls/hr Q8H-IV KAREEM Administration Sodium Chloride 1,000 mls @ 83 mls/hr 11/23/17 01:30 11/23/17 03:21 Normal Saline - IV 83 mls/hr ASDIR KAREEM Administration Insulin Aspart 1 vial 11/23/17 07:00 11/23/17 06:05 Novolog Vial Sliding Scale - SQ Not Given ACHS KAREEM Protocol Morphine Sulfate 4 mg 11/23/17 01:30 Morphine Sulfate IVPUSH Q4H PRN PAIN LEVEL 7 - 10 Ondansetron HCl 4 mg 11/23/17 01:36 Zofran Injection IVPUSH Q4H PRN NAUSEA AND/OR VOMITING IMAGING: Abdominal US: Diffuse gallbladder wall thickening suggestive of adenomyomasis. No biliary tract dilation, cholecystitis, cholelithiasis. CT abdomen/ pelvis: Mild gallbladder wall thickening, small amount of pericholecystic fluid, without calculus. No pneumoperitoneum, abscess, bowel obstruction, or free air noted. No acute appendicitis. Transvaginal US: No ovarian torsion. Possible uterine adenomyosis noted. ASSESSMENT/PLAN: Patient is a 42 year old female with history of GERD, presents with complaint of sudden onset, dull, right upper and lower quadrant abdominal pain with radiation to the back and nonbloody, billious vomiting. Right upper quadrant abdominal pain -May be secondary to adenomyomatosis as noted in abdominal US. -HIDA scan: shows no filling defect of gallbladder, ruling out cystic duct obstruction. -GI (Dr. Tang) consult appreciated. -Surgery (Dr. Pierre) consult appreciated: Patient scheduled for lap olivier tomorrow. -ID (Dr. Ayala) consult appreciated: Continue empiric Ceftriaxone 1gram QD, Metronidazole 500mg Q8H -Tylenol 325mg PO Q4H PRN for pain 1-5 -Oxycodone 5mg PO Q4H PRN for pain 6-10 -Zofran 4mg IV Q4H for nausea Constipation -Miralax 17 grams PO FEN -IV normal saline 83mL/hr -Follow CMP -NPO for lap olivier tomorrow Prophylaxis -Lovenox 40mg subq QD Disposition Continue care in medical surgical floor for lap paul. Visit type - Emergency Visit Emergency Visit: Yes ED Registration Date: 11/22/17 Care time: The patient presented to the Emergency Department on the above date and was hospitalized for further evaluation of their emergent condition. - New Patient This patient is new to me today: Yes Date on this admission: 11/23/17 - Critical Care Critical Care patient: No - Discharge Referral Referred to [facility] Med P.C[facility] No
--- NOTE | 2017-11-23 12:27 | PN ---
Progress Note (short form) - Note Progress Note: ID Consult dictated R/O acute cholecystitis Continue empiric ceftriaxone/ flagyl
--- NOTE | 2017-11-23 13:36 | CON.GI ---
Consult Consult Specialty:: GI Reason for Consultation:: abnormal GB - History of Present Illness History of Present Illness: Chart reviewed. Events and work up noted. Per initial intake last night: Patient is a 42 year old woman with history of penicillin allergy and presenting with complaint of sudden onset of lower abdominal pain with nausea and vomiting this morning. Patient denies fevers, but had chills. Denies blood in vomit. Last bowel movement this morning. Denies sick contacts, possible food poisoning, dysuria, hematuria, history of kidney stones, pelvic pain or vaginal pain. She wretching in the ER and vomited. States that she is currently on her period. Patient told triage she may be though serum test was negative. Uses marijuana on weekends. Urine toxicology showed marijuana and opiates. Pelvic exam ER staff were negative. Imaging as below: Seen after HIDA (negative), c/o nausea, but wants to eat. C/o generalized abdominal pain. No dysphagia, odynophagia, GERD-like symptoms. No fever, chills , jaundice, weigh loss, changes in bms. No history of overt GB, liver, or pancrease problems. [id number] US/ABDOMEN US -LIMITED Right upper quadrant abdomen ultrasound Clinical information given: abnormal gallbladder identified on CT The gallbladder wall demonstrates diffuse thickening with associated punctate intramural echogenic foci suggestive of adenomyomatosis. No definite gallbladder calculus is seen. There is mild nonspecific gallbladder overdistention. No definite pericholecystic fluid is noted. The common bile duct diameter appears of the upper limits of normal measuring 0.6 cm. No gross intraductal calculus is seen. The liver, right kidney and partially visualized pancreas demonstrate no sonographic abnormality. No free intraperitoneal fluid is identified. Impression: The gallbladder demonstrates findings suggestive of adenomyomatosis. Correlation with endoscopic sonography is suggested. There is no definite sonographic evidence of cholelithiasis or acute cholecystitis. If there is ongoing clinical concern additional evaluation utilizing MRI/MRCP may be considered. No definite biliary tract dilatation is noted. Reported By: Richar Feldman MD 11/22/17 [id number] CT/ABDOMEN & PELVIS CT WITH CONTR Abdomen and pelvis CT (with intravenous contrast) Clinical information: lower abdominal pain Multiplanar imaging was performed following the intravenous administration of nonionic contrast. As requested enteric contrast was not administered. No prior CT studies are available at this facility for direct comparison. No evidence of pneumoperitoneum, abscess, free intraperitoneal fluid or bowel obstruction. Mild diffuse gallbladder wall thickening is noted as well as a small amount of pericholecystic fluid accumulation. There is probable minimal to mild gallbladder overdistention. No definite CT evidence of cholelithiasis (sensitivity 80%). There is no definite biliary tract dilatation. As noted on sonography performed earlier the same date the uterus appears mildly prominent in overall size which could be on the basis of adenomyosis. If clinically indicated correlate with nonemergent MRI. A diffusely heterogeneous uterine echotexture was also visualized on sonography. There is no definite CT evidence of adnexal pathology. The urinary bladder demonstrates no obvious intrinsic or extrinsic CT abnormality. The appendix is partially visualized and demonstrates no obvious abnormality. No indirect CT signs of acute appendicitis are noted. No CT evidence of acute diverticulitis or colitis. There is no gross small bowel pathology. The liver, spleen, pancreas, adrenal glands and kidneys demonstrate no discrete abnormality. There is no aortic aneurysm. No obvious lymphadenopathy is noted. The visualized osseous structures demonstrate no gross CT evidence of acute pathology. Impression: No CT findings of acute pathology are seen within the pelvis/lower abdomen. [id number] US/TRANSVAGINAL ULTRASOUND US Transvaginal ultrasound Clinical information: lower abdominal pain, evaluate for torsion The ovaries demonstrate no discrete abnormality. Several subcentimeter follicles are seen bilaterally. No Doppler evidence of ovarian torsion, sensitivity 70%. The uterus appears mildly prominent in overall size measuring approximately 10.3 x 7 x 5.3 cm. The uterus also appears somewhat heterogeneous in echotexture diffusely which could be on the basis of adenomyosis. A 1.3 cm cervical nabothian cyst is visualized. Endometrial thickness appears unremarkable measuring 0.4 cm. No free intraperitoneal fluid is noted. Impression: No Doppler evidence of ovarian torsion as noted above. Possible uterine adenomyosis. Additional evaluation utilizing nonemergent MRI may be considered. [id number] NM/HIDA SCAN HIDA SCAN CLINICAL INDICATION: 42-year-old female with abdominal pain and thickened gallbladder wall on ultrasound TECHNIQUE: Following the intravenous administration of 6.6 mCi of Tc 99M of Choletec, dynamic images of the abdomen in the anterior projection were obtained through 60 minutes. COMPARISON: Ultrasound of the abdomen dated November 22, 2017. FINDINGS: There is normal homogeneous perfusion of the liver with no evidence of focal lesion. Extraction of tracer from the blood pool by the liver parenchyma is normal. Tracer appears promptly and within the biliary tree. The gallbladder begins to fill by 10-15 minutes post injection of tracer and fill adequately. Tracer in the small bowel is first seen at 20-25 minutes. IMPRESSION: Filling of the gallbladder excludes acute cystic duct obstruction. Reported By: Gurinder Mendoza MD 11/23/17 [id number] rev - History Source History Provided By: Patient, Medical Record, Caregiver - Past Medical History ...: No - Alcohol/Substance Use Hx Alcohol Use: No - Smoking History Smoking history: Never smoked Home Medications - Allergies Allergies/Adverse Reactions: Allergies Allergy/AdvReac Type Severity Reaction Status Date / Time Penicillins Allergy Verified 11/22/17 14:28 - Home Medications Home Medications: Ambulatory Orders NK [No Known Home Medication] 11/22/17 Family Disease History - Family Disease History Family History: Unremarkable Review of Systems Findings/Remarks: as per HPI, ED, H&P Physical Exam-GI Vital Signs: Vital Signs Temperature 99.0 F 11/23/17 08:32 Pulse Rate 86 11/23/17 08:32 Respiratory Rate 20 11/23/17 08:32 Blood Pressure 143/88 11/23/17 08:32 O2 Sat by Pulse Oximetry (%) 100 11/23/17 10:06 Constitutional: Yes: Anxious, Mild Distress, Pallor Eyes: Yes: Conjunctiva Clear HENT: Yes: Atraumatic Neck: Yes: Supple Cardiovascular: Yes: Regular Rate and Rhythm Respiratory: Yes: Regular Gastrointestinal Inspection: No: Ascites, Distention ...Auscultate: Yes: Normoactive Bowel Sounds ...Palpate: Yes: Soft, Tenderness. No: Firm/Rigid, Guarding Neurological: Yes: Alert, Oriented Labs: CBC, BMP 11/23/17 06:30 11/23/17 06:30 CBCD WBC 6.6 K/mm3 (4.0-10.0) 11/23/17 06:30 RBC 3.80 M/mm3 (3.60-5.2) 11/23/17 06:30 Hgb 9.1 GM/dL (10.7-15.3) L 11/23/17 06:30 Hct 28.8 % (32.4-45.2) L D 11/23/17 06:30 MCV 75.9 fl (80-96) L 11/23/17 06:30 MCHC 31.5 g/dl (32.0-36.0) L 11/23/17 06:30 RDW 16.9 % (11.6-15.6) H 11/23/17 06:30 Plt Count 232 K/MM3 (134-434) D 11/23/17 06:30 MPV 8.0 fl (7.5-11.1) 11/23/17 06:30 CMP Sodium 140 mmol/L (136-145) 11/23/17 06:30 Potassium 3.6 mmol/L (3.5-5.1) 11/23/17 06:30 Chloride 110 mmol/L (98-107) H 11/23/17 06:30 Carbon Dioxide 23 mmol/L (21-32) 11/23/17 06:30 Anion Gap 7 MMOL/L (8-16) L 11/23/17 06:30 BUN 7 mg/dL (7-18) 11/23/17 06:30 Creatinine 0.5 mg/dL (0.55-1.3) L 11/23/17 06:30 Creat Clearance w eGFR > 60 (>60) 11/23/17 06:30 Calcium 7.8 mg/dL (8.5-10.1) L 11/23/17 06:30 Total Bilirubin 0.4 mg/dL (0.2-1) 11/23/17 06:30 AST 16 U/L (15-37) 11/23/17 06:30 ALT 13 U/L (13-61) 11/23/17 06:30 Alkaline Phosphatase 41 U/L (45-117) L 11/23/17 06:30 Total Protein 6.3 g/dl (6.4-8.2) L 11/23/17 06:30 Albumin 3.1 g/dl (3.4-5.0) L 11/23/17 06:30 Laboratory Last Values WBC 6.6 K/mm3 (4.0-10.0) 11/23/17 06:30 RBC 3.80 M/mm3 (3.60-5.2) 11/23/17 06:30 Hgb 9.1 GM/dL (10.7-15.3) L 11/23/17 06:30 Hct 28.8 % (32.4-45.2) L D 11/23/17 06:30 MCV 75.9 fl (80-96) L 11/23/17 06:30 MCH 23.9 pg (25.7-33.7) L 11/23/17 06:30 MCHC 31.5 g/dl (32.0-36.0) L 11/23/17 06:30 RDW 16.9 % (11.6-15.6) H 11/23/17 06:30 Plt Count 232 K/MM3 (134-434) D 11/23/17 06:30 MPV 8.0 fl (7.5-11.1) 11/23/17 06:30 Absolute Neuts (auto) 4.0 K/mm3 (1.5-8.0) 11/23/17 06:30 Neutrophils % 61.0 % (42.8-82.8) D 11/23/17 06:30 Lymphocytes % 31.9 % (8-40) D 11/23/17 06:30 Monocytes % 6.4 % (3.8-10.2) D 11/23/17 06:30 Eosinophils % 0.3 % (0-4.5) 11/23/17 06:30 Basophils % 0.4 % (0-2.0) 11/23/17 06:30 Nucleated RBC % 0 % (0-0) 11/23/17 06:30 Sodium 140 mmol/L (136-145) 11/23/17 06:30 Potassium 3.6 mmol/L (3.5-5.1) 11/23/17 06:30 Chloride 110 mmol/L (98-107) H 11/23/17 06:30 Carbon Dioxide 23 mmol/L (21-32) 11/23/17 06:30 Anion Gap 7 MMOL/L (8-16) L 11/23/17 06:30 BUN 7 mg/dL (7-18) 11/23/17 06:30 Creatinine 0.5 mg/dL (0.55-1.3) L 11/23/17 06:30 Creat Clearance w eGFR > 60 (>60) 11/23/17 06:30 POC Glucometer 89 UNITS (80-120) 11/23/17 11:28 Random Glucose 84 mg/dL (74-106) 11/23/17 06:30 Calcium 7.8 mg/dL (8.5-10.1) L 11/23/17 06:30 Phosphorus 2.6 mg/dL (2.5-4.9) 11/23/17 06:30 Magnesium 2.0 mg/dL (1.8-2.4) 11/23/17 06:30 Total Bilirubin 0.4 mg/dL (0.2-1) 11/23/17 06:30 AST 16 U/L (15-37) 11/23/17 06:30 ALT 13 U/L (13-61) 11/23/17 06:30 Alkaline Phosphatase 41 U/L (45-117) L 11/23/17 06:30 Total Protein 6.3 g/dl (6.4-8.2) L 11/23/17 06:30 Albumin 3.1 g/dl (3.4-5.0) L 11/23/17 06:30 Lipase 102 U/L (73-393) 11/22/17 14:47 Serum , Qual Negative 11/22/17 14:47 Urine Color Ltyellow 11/22/17 21:50 Urine Appearance Clear 11/22/17 21:50 Urine pH 5.0 (5.0-8.0) 11/22/17 21:50 Ur Specific [place] 1.060 (1.001-1.035) H 11/22/17 21:50 Urine Protein Negative (NEGATIVE) 11/22/17 21:50 Urine Glucose (UA) Negative (NEGATIVE) 11/22/17 21:50 Urine Ketones 1+ (NEGATIVE) H 11/22/17 21:50 Urine Blood 3+ (NEGATIVE) H 11/22/17 21:50 Urine Nitrite Negative (NEGATIVE) 11/22/17 21:50 Urine Bilirubin Negative (<2.0 mg/dL) 11/22/17 21:50 Urine Urobilinogen Negative mg/dL (0.2-1.0) 11/22/17 21:50 Ur Leukocyte Esterase Negative (NEGATIVE) 11/22/17 21:50 Urine WBC (Auto) 10 /hpf (3-5) 11/22/17 21:50 Urine RBC (Auto) 115 /hpf (0-3) 11/22/17 21:50 Ur Epithelial Cells Rare /HPF (FEW) 11/22/17 21:50 Opiates Screen Positive ng/ml (CCITWT=824) A* 11/22/17 21:50 Methadone Screen Negative ng/ml (BQJRLL=101) 11/22/17 21:50 Barbiturate Screen Negative ng/ml (HNZETR=699) 11/22/17 21:50 Phencyclidine Screen Negative ng/ml (CUTOFF=25) 11/22/17 21:50 Ur Amphetamines Screen Negative ng/ml (MQOCCR=489) 11/22/17 21:50 MDMA (Ecstasy) Screen Negative ng/ml (FAEBZZ=040) 11/22/17 21:50 Benzodiazepines Screen Negative ng/ml (XPPZMO=836) 11/22/17 21:50 Cocaine Screen Negative ng/ml (XMLVWY=480) 11/22/17 21:50 U Marijuana (THC) Screen Positive ng/ml (CUTOFF=50) A* 11/22/17 21:50 Imaging - Results Cat Scan: Report Reviewed Ultrasound: Report Reviewed Other: Report Reviewed (trans-vagina US, HIDA) Problem List - Problems (1) Abdominal pain Code(s): R10.9 - UNSPECIFIED ABDOMINAL PAIN Qualifiers: Abdominal location: unspecified location Qualified Code(s): R10.9 - Unspecified abdominal pain Assessment/Plan A 42F with the above. The etiology of the pain is unclear. GB adenomyomatosis is not responsible for the pain, however, the condition has been associated with gallstones and, equivocally, GB cancer. The liver enzymes do not manifest hepatitis, or cholestasis. Microcytic, hypochromic anemia noted, however, there is no stigmata of GI bleeding. The pt is currently on her period, which may explain some of the findings. Surgical consult is pending. Recommned: clear lipid diet, if ok with sx, daily labs, Iron profile and supplement if needed, PPI po qam and observe. EGD if continue to have nausea, and abdominal pain.
--- NOTE | 2017-11-23 13:37 | EKG ---
Test Reason : Blood Pressure : / mmHG Vent. Rate : 068 BPM Atrial Rate : 068 BPM P-R Int : 172 ms QRS Dur : 070 ms QT Int : 400 ms P-R-T Axes : 073 052 061 degrees QTc Int : 425 ms SINUS RHYTHM WITH MARKED SINUS ARRHYTHMIA SEPTAL INFARCT , AGE UNDETERMINED ABNORMAL ECG NO PREVIOUS ECGS AVAILABLE Confirmed by SUHA BALTAZAR MD ([id number]) on 11/23/2017 1:37:29 PM Referred By: Confirmed By:SUHA BALTAZAR MD
[2017-11-23] MEDS: ONDANSETRON 4 MG/2 ML VIAL IVPUSH PRN ×2 (16:06→19:49)
--- NOTE | 2017-11-23 16:13 | PN ---
Teaching Attending Note Name of Resident: Eleni Alicea ATTENDING PHYSICIAN STATEMENT I saw and evaluated the patient. I reviewed the resident's note and discussed the case with the resident. I agree with the resident's findings and plan as documented. SUBJECTIVE: No fever or chills. abd pain has improved . reports constipation . heavy menstrual periods. has not seen a doctor in 3 years. has seen [facility] only once 3 weeks ago. OBJECTIVE: NA D CV : RRR Lungs: CTAB ext: no edema Abd: soft, ND, TTp in RUQ and RLQ , no rebound tenderness , neg Mario's. ASSESSMENT AND PLAN: 42 y/o lady with h/o C section who presented with abd pain , n/V . 1- Abd pain, nausea and vomiting . no clear etiology, CT scan image and report reviewed. US report reviewed . HIDA report reviewed. filling of gall bladder excludes cholecystitis . constipated and constipation might contribute to sx. other DDX is IBS - dc Abx . - start clears ater surgery REcs - nausea medication - appreciate GI input, might get EGD if no sx relief - start bowel regimen - rectal bleed, x 1 could be due to hemorrhoids in setting of constipation. colo at some point as out pt 2- Iron def anemia: likely due ot heavy menstrual periods. fibroids on US. - f/u with [employer] as out pt - check iron studies 3- dispo :cont to monitor
[2017-11-23] MEDS ORDERED: POLYETHYLENE GLYCOL 3350 119 GM BTL PO ONE (17:24)
[2017-11-23] MEDS: oxyCODONE HCL 5 MG TABLET PO PRN (18:31)
[2017-11-24] MEDS: SODIUM CHLORIDE 1,000 ML IV SCH ×2 (02:00→14:22)
[2017-11-24] MEDS: ONDANSETRON 4 MG/2 ML VIAL IVPUSH PRN (06:28)
[2017-11-24] MEDS: ACETAMINOPHEN 325 MG TABLET (FP) PO PRN ×2 (06:28→23:07)
[2017-11-24] MEDS: INSULIN SLIDING SCALE (NOVOLOG) 1 VIAL SQ SCH ×2 (06:37→11:26)
[2017-11-24 06:47] LABS: HEMATOCRIT 28.8 % (32.4-45.2); HEMOGLOBIN 9.1 GM/dL (10.7-15.3); MCHC 31.6 g/dl (32.0-36.0); PLATELET COUNT 237 K/MM3 (134-434); RBC 3.78 M/mm3 (3.60-5.2); RDW 16.7 % (11.6-15.6)
[2017-11-24 07:13] LABS: INR 1.16 (0.83-1.09); PROTHROMBIN TIME (PATIENT) 13.1 SEC (9.7-13.0)
[2017-11-24 07:15] LABS: ACTIVATED PTT 23.9 SECONDS (25.2-36.5)
[2017-11-24 07:31] LABS: ALBUMIN 3.1 g/dl (3.4-5.0); ANION GAP 10 MMOL/L (8-16); BLOOD UREA NITROGEN 8 mg/dL (7-18); CHLORIDE 109 mmol/L (98-107); CO2 20 mmol/L (21-32); GLUCOSE,RANDOM 73 mg/dL (74-106); POTASSIUM 3.6 mmol/L (3.5-5.1); SODIUM 139 mmol/L (136-145)
[2017-11-24 07:35] LABS: ALK PHOS 41 U/L (45-117); BILIRUBIN,TOTAL 0.3 mg/dL (0.2-1); CREATININE 0.5 mg/dL (0.55-1.3); SGOT/AST 11 U/L (15-37); SGPT/ALT 14 U/L (13-61); TOT PROT 6.2 g/dl (6.4-8.2)
[2017-11-24] MEDS ORDERED: SENNOSIDES 8.6MG TABLET (FP) PO PRN (07:35)
[2017-11-24] MEDS ORDERED: POLYETHYLENE GLYCOL 3350 119 GM BTL PO PRN (07:36)
[2017-11-24] MEDS: DOCUSATE SODIUM 100 MG CAPSULE (FP) PO SCH ×2 (09:52→21:29)
[2017-11-24] MEDS ORDERED: DEXTROSE 5%-WATER - 50 ML IVPB ONE (09:55)
[2017-11-24] MEDS ORDERED: cefTRIAXone SODIUM 1 GM VIAL ONE (09:55)
[2017-11-24] MEDS: CEFTRIAXONE 1 GM in DEXTROSE 5%-WATER - 50 ML IVPB SCH (10:00)
--- NOTE | 2017-11-24 13:53 | PN ---
Teaching Attending Note Name of Resident: Fransisco Dominique ATTENDING PHYSICIAN STATEMENT I saw and evaluated the patient. I reviewed the resident's note and discussed the case with the resident. I agree with the resident's findings and plan as documented. SUBJECTIVE: No fever or chills . denies any Abd pain today. OBJECTIVE: NAD CV : RRR Lungs: CTAB ext: no edema Abd: soft, ND, NT. NL BS ASSESSMENT AND PLAN: 42 y/o lady with h/o C section who presented with abd pain , n/V . 1- Abd pain, nausea and vomiting . no clear etiology. resolved . - for CCY today - dc Abx after CCY. - bowel regimen after sx - cont IVF for now - diet after sx and pain control constipated and constipation might contribute to sx. other DDX is IBS - dc Abx . - start clears ater surgery REcs - nausea medication - appreciate GI input, might get EGD if no sx relief - start bowel regimen - rectal bleed, x 1 could be due to hemorrhoids in setting of constipation. colo at some point as out pt 2- Iron def anemia: likely due ot heavy menstrual periods. fibroids on US. - f/u with [employer]ER as out pt - iron studies pending 3- dispo :possible dc tomorrow
[2017-11-24 16:55] LABS: BASO % 0.5 % (0-2.0); EOS % 0.4 % (0-4.5); HEMATOCRIT 28.9 % (32.4-45.2); HEMOGLOBIN 9.3 GM/dL (10.7-15.3); LYMPH % 47.1 % (8-40); MCH 24.5 pg (25.7-33.7); MCHC 32.2 g/dl (32.0-36.0); MEAN CELL VOLUME 75.8 fl (80-96); MEAN PLT VOLUME 8.4 fl (7.5-11.1); MONO % 7.7 % (3.8-10.2); NEUT % 44.3 % (42.8-82.8); PLATELET COUNT 260 K/MM3 (134-434); RBC 3.81 M/mm3 (3.60-5.2); RDW 17.3 % (11.6-15.6); WHITE BLOOD COUNT 5.9 K/mm3 (4.0-10.0)
--- NOTE | 2017-11-24 19:01 | PN ---
Physical Exam: SUBJECTIVE: Patient seen and examined at bedside in no acute distress. She admitted to nausea and some vomiting with clear liquids yesterday evening, which she had two episodes bilious, non bloody vomiting. She has remained NPO since midnight. She is currently menstruating. Has not passed bowel movement since Tuesday. Denies headache, fevers, chills, shortness of breath, chest pain, palpitations, diarrhea. OBJECTIVE: Vital Signs Period Temp Pulse Resp BP Sys/Meléndez Pulse Ox Last 24 Hr 98.2 F-99.2 F 79-91 18-20 123-145/73-85 99-100 GENERAL: The patient is awake, alert, and fully oriented, in no acute distress. HEAD: Normocephalic, atraumatic. EYES: PERRLA, extraocular movements intact, sclera anicteric, conjunctiva clear. ENT: Oropharynx clear without exudates, dry mucous membranes. NECK: Trachea midline, full range of motion, supple without lymphadenopathy. LUNGS: Good inspiratory effort. Breath sounds equal, clear to auscultation bilaterally. No wheezes. No accessory muscle use. HEART: Regular rate and rhythm, S1, S2 without murmur, rub or gallop. ABDOMEN: Soft, nondistended. Slight tenderness to palpation at right upper and lower abdominal quadrant. Normoactive bowel sounds X4 quadrants. No guarding, no rebound. No hepatosplenomegaly appreciated. EXTREMITIES: 2+ radial and dorsalis pedis pulses. Warm. No lower extremity edema b/l. NEUROLOGICAL: Cranial nerves II through XII grossly intact. Normal speech. No gross focal deficits. Strength 5/5 b/l upper and lower extremities. PSYCH: Appropriate mood and affect upon my encounter today. SKIN: Warm, dry. No rashes or lesions noted. Laboratory Results - last 24 hr 11/23/17 11/24/17 11/24/17 17:50 06:30 06:30 WBC 6.0 RBC 3.78 Hgb 9.1 L Hct 28.8 L MCV 76.0 L MCH 24.0 L MCHC 31.6 L RDW 16.7 H Plt Count 237 MPV 8.0 Absolute Neuts (auto) Neutrophils % Lymphocytes % Monocytes % Eosinophils % Basophils % Nucleated RBC % PT with INR INR PTT (Actin FS) Sodium 139 Potassium 3.6 Chloride 109 H Carbon Dioxide 20 L Anion Gap 10 BUN 8 Creatinine 0.5 L Creat Clearance w eGFR > 60 POC Glucometer Random Glucose 73 L Calcium 8.0 L Ferritin 6.6 L Total Bilirubin 0.3 AST 11 L ALT 14 Alkaline Phosphatase 41 L Total Protein 6.2 L Albumin 3.1 L Vitamin B12 842 Serum Folate 24 H Stool Occult Blood Blood Type Antibody Screen 11/24/17 11/24/17 11/24/17 06:30 06:30 06:36 WBC RBC Hgb Hct MCV MCH MCHC RDW Plt Count MPV Absolute Neuts (auto) Neutrophils % Lymphocytes % Monocytes % Eosinophils % Basophils % Nucleated RBC % PT with INR 13.10 H INR 1.16 H PTT (Actin FS) 23.9 L Sodium Potassium Chloride Carbon Dioxide Anion Gap BUN Creatinine Creat Clearance w eGFR POC Glucometer 81 Random Glucose Calcium Ferritin Total Bilirubin AST ALT Alkaline Phosphatase Total Protein Albumin Vitamin B12 Serum Folate Stool Occult Blood Blood Type B POSITIVE Antibody Screen Negative 11/24/17 11/24/17 11/24/17 09:20 15:45 16:00 WBC 5.9 RBC 3.81 Hgb 9.3 L Hct 28.9 L MCV 75.8 L MCH 24.5 L MCHC 32.2 RDW 17.3 H Plt Count 260 MPV 8.4 Absolute Neuts (auto) 2.6 Neutrophils % 44.3 D Lymphocytes % 47.1 H D Monocytes % 7.7 Eosinophils % 0.4 Basophils % 0.5 Nucleated RBC % 0 PT with INR INR PTT (Actin FS) Sodium Potassium Chloride Carbon Dioxide Anion Gap BUN Creatinine Creat Clearance w eGFR POC Glucometer Random Glucose Calcium Ferritin Total Bilirubin AST ALT Alkaline Phosphatase Total Protein Albumin Vitamin B12 Serum Folate Stool Occult Blood Negative Blood Type B POSITIVE Antibody Screen Active Medications Generic Name Dose Route Start Last Admin Trade Name Freq PRN Reason Stop Dose Admin Acetaminophen 325 mg 11/23/17 17:25 11/24/17 06:28 Tylenol - PO 325 mg Q4H PRN Administration PAIN LEVEL 1-5 Docusate Sodium 100 mg 11/24/17 10:00 11/24/17 09:52 Colace - PO Not Given BID [facility] Ceftriaxone Sodium 1 gm/ 50 mls @ 100 mls/hr 11/23/17 10:00 11/24/17 10:00 Dextrose IVPB 100 mls/hr DAILY [facility] Administration Protocol Metronidazole 500 mg in 100 mls @ 100 mls/hr 11/23/17 02:00 11/24/17 17:44 Flagyl 500mg Premixed Ivpb - IVPB 100 mls/hr Q8H-IV KAREEM Administration Sodium Chloride 1,000 mls @ 83 mls/hr 11/23/17 01:30 11/24/17 14:22 Normal Saline - IV 83 mls/hr ASDIR KAREEM Administration Ondansetron HCl 4 mg 11/23/17 01:36 11/24/17 06:28 Zofran Injection IVPUSH 4 mg Q4H PRN Administration NAUSEA AND/OR VOMITING Oxycodone HCl 5 mg 11/23/17 17:25 11/23/17 18:31 Roxicodone - PO 5 mg Q4H PRN Administration PAIN LEVEL 6-10 Polyethylene Glycol 17 gm 11/24/17 07:36 11/24/17 17:49 Miralax (For Daily Use) - PO 17 gm DAILY PRN Administration CONSTIPATION Senna 2 tab 11/24/17 07:35 Senna - PO HS PRN CONSTIPATION IMAGING: Abdominal US: Diffuse gallbladder wall thickening suggestive of adenomyomasis. No biliary tract dilation, cholecystitis, cholelithiasis. CT abdomen/ pelvis: Mild gallbladder wall thickening, small amount of pericholecystic fluid, without calculus. No pneumoperitoneum, abscess, bowel obstruction, or free air noted. No acute appendicitis. Transvaginal US: No ovarian torsion. Possible uterine adenomyosis noted. HIDA scan: No filling defect of gallbladder noted, ruling out cystic duct obstruction. ASSESSMENT/PLAN: Patient is a 42 year old female with history of GERD, presents with complaint of sudden onset, dull, right upper and lower quadrant abdominal pain with radiation to the back and nonbloody, billious vomiting. Right upper quadrant abdominal pain -Likely secondary to biliary colic -GI (Dr. Tang) consult appreciated. -Surgery (Dr. Pierre) consult appreciated: Patient for laparoscopic cholecystectomy tomorrow. -ID (Dr. Ayala) consult appreciated: Continue empiric Ceftriaxone 1gram QD, Metronidazole 500mg Q8H -Tylenol 325mg PO Q4H PRN for pain 1-5 -Oxycodone 5mg PO Q4H PRN for pain 6-10 -Zofran 4mg IV Q4H for nausea Anemia Patient was for laparoscopic cholecystectomy today, however due to her Hb at 9.1 , moved to tomorrow. -Patient is currently menstruating -Stool for occult blood negative today -Total bilirubin 0.3 today -F/U LDH to rule out hemolysis Constipation -Miralax 17 grams PO FEN -IV normal saline 83mL/hr -Follow CMP -NPO for lap olivier tomorrow Prophylaxis -SCDs B/L lower extremities Disposition Continue care in medical surgical floor for laparoscopic cholecystectomy. Visit type - Emergency Visit Emergency Visit: Yes ED Registration Date: 11/24/17 Care time: The patient presented to the Emergency Department on the above date and was hospitalized for further evaluation of their emergent condition. - New Patient This patient is new to me today: No - Critical Care Critical Care patient: No - Discharge Referral Referred to [facility] Med P.C.: No
[2017-11-25] MEDS: oxyCODONE HCL 5 MG TABLET PO PRN ×4 (02:28→22:51)
[2017-11-25] MEDS: ONDANSETRON 4 MG/2 ML VIAL IVPUSH PRN (04:03)
[2017-11-25] MEDS: SODIUM CHLORIDE 1,000 ML IV SCH ×2 (05:42)
[2017-11-25] MEDS ORDERED: METOCLOPRAMIDE HCL INJECTION 10 MG/2 ML VIAL IVPUSH ONE (05:52)
[2017-11-25 07:00] LABS: HEMATOCRIT 28.7 % (32.4-45.2); HEMOGLOBIN 9.3 GM/dL (10.7-15.3); MCH 24.2 pg (25.7-33.7); MCHC 32.3 g/dl (32.0-36.0); MEAN CELL VOLUME 74.9 fl (80-96); PLATELET COUNT 236 K/MM3 (134-434); RBC 3.82 M/mm3 (3.60-5.2); RDW 16.9 % (11.6-15.6); WHITE BLOOD COUNT 4.9 K/mm3 (4.0-10.0)
[2017-11-25 07:01] LABS: ANION GAP 8 MMOL/L (8-16); BLOOD UREA NITROGEN 6 mg/dL (7-18); CALCIUM 7.7 mg/dL (8.5-10.1); CHLORIDE 107 mmol/L (98-107); CO2 24 mmol/L (21-32); CREATININE 0.6 mg/dL (0.55-1.3); GLUCOSE,RANDOM 93 mg/dL (74-106); LDH 135 U/L (84-246); POTASSIUM 3.2 mmol/L (3.5-5.1); SODIUM 139 mmol/L (136-145)
[2017-11-25 08:07] LABS: SERUM IRON SATURATION 5 % (15-55); TOTAL IRON BINDING CAPACITY 352 ug/dL (250-450); UIBC 333 ug/dL (131-425)
[2017-11-25] MEDS: KCL 10 MEQ IVPB 10 MEQ/100 ML INFUS.BAG IVPB SCH ×3 (08:50→17:50)
[2017-11-25] MEDS ORDERED: ONDANSETRON 4 MG/2 ML VIAL IVPUSH PRN (09:38)
[2017-11-25] MEDS ORDERED: BUPIVACAINE HCL/PF 0.25% (2.5MG/ML) 10 ML VIAL ONE ×2 (10:13→11:53)
[2017-11-25] MEDS ORDERED: BUPIVACAINE HCL/PF 0.25% (2.5MG/ML) 10 ML VIAL IJ ONE ×4 (10:33→11:50)
[2017-11-25] MEDS ORDERED: PROPOFOL 20 ML ONE (10:50)
[2017-11-25] MEDS ORDERED: ROCURONIUM BROMIDE 50 MG/5 ML VIAL ONE (10:50)
[2017-11-25] MEDS ORDERED: MIDAZOLAM HCL 2 MG/2 ML SINGLE DOSE VIAL ONE (10:50)
[2017-11-25] MEDS ORDERED: CEFOXITIN SODIUM 1 GM IVPB ONE (11:05)
[2017-11-25] MEDS ORDERED: CEFOTAXIME SODIUM 1 GM VIAL (RESTRICTED TO ID) IVPB ONE (11:16)
[2017-11-25] MEDS ORDERED: GLYCOPYRROLATE 0.2 MG/1 ML VIAL ONE ×2 (11:39→11:40)
[2017-11-25] MEDS ORDERED: DEXAMETHASONE SOD PHOSPHATE 4 MG/1 ML VIAL ONE (11:39)
[2017-11-25] MEDS ORDERED: NEOSTIGMINE METHYLSULFATE 0.5 MG/ML - 10 ML MDV ONE (11:39)
[2017-11-25] MEDS ORDERED: KETOROLAC TROMETHAMINE 30 MG/1 ML VIAL ONE (11:48)
[2017-11-25] MEDS ORDERED: BENZOIN/ALOE VERA/STORAX/TOLU 58 ML BOTTLE ONE (11:58)
--- NOTE | 2017-11-25 12:15 | OP ---
Operative Note - Note: Operative Date: 11/25/17 Pre-Operative Diagnosis: adenomyomatosis of gallbladder Operation: Laparoscopic Cholecystectomy Findings: gallbladder, noted associated piece of liver (extopic lobe), critical view identified, all counts correct Post-Operative Diagnosis: Same as Pre-op Surgeon: [facility] Social Worker: Randy Sesay Anesthesiologist/ROUSTABOUT HAND: Sara Schwartz Anesthesia: General, Local (0.25% marcaine 20ml) Specimens Removed: gallbladder and ectopic piece of liver Estimated Blood Loss (mls): 5 Drains & Tubes with Location: none Fluid Volume Replaced (mls): 600 (crystalloid )
[2017-11-25] MEDS ORDERED: ONDANSETRON 4 MG/2 ML VIAL ONE (12:24)
[2017-11-25] MEDS ORDERED: ONDANSETRON 4 MG/2 ML VIAL IVPUSH ONE (12:26)
--- NOTE | 2017-11-25 15:07 | PN ---
Physical Exam: SUBJECTIVE: Patient seen and examined at bedside in no acute distress. Overnight , she admits to right sided abdominal pain, nausea, without vomiting. She also admits to three episodes of non bloody diarrhea. She remains NPO. She is currently menstruating. Denies headache, fevers, chills, shortness of breath, chest pain, palpitations. OBJECTIVE: Vital Signs Period Temp Pulse Resp BP Sys/Meléndez Pulse Ox Last 24 Hr 97.6 F-99.2 F 74-125 14-20 123-147/75-91 99-100 GENERAL: The patient is awake, alert, and fully oriented, in no acute distress. HEAD: Normocephalic, atraumatic. EYES: PERRLA, extraocular movements intact, sclera anicteric, conjunctiva clear. ENT: Oropharynx clear without exudates, dry mucous membranes. NECK: Trachea midline, full range of motion, supple without lymphadenopathy. LUNGS: Good inspiratory effort. Breath sounds equal, clear to auscultation bilaterally. No wheezes. No accessory muscle use. HEART: Regular rate and rhythm, S1, S2 without murmur, rub or gallop. ABDOMEN: Soft, nondistended. Slight tenderness to palpation at right upper and lower abdominal quadrant. Normoactive bowel sounds X4 quadrants. No guarding, no rebound. No hepatosplenomegaly appreciated. EXTREMITIES: 2+ radial and dorsalis pedis pulses. Warm. No lower extremity edema b/l. NEUROLOGICAL: Cranial nerves II through XII grossly intact. Normal speech. No gross focal deficits. Strength 5/5 b/l upper and lower extremities. PSYCH: Appropriate mood and affect upon my encounter today. SKIN: Warm, dry. No rashes or lesions noted. Laboratory Results - last 24 hr 11/23/17 11/24/17 11/24/17 17:50 15:45 16:00 WBC 5.9 RBC 3.81 Hgb 9.3 L Hct 28.9 L MCV 75.8 L MCH 24.5 L MCHC 32.2 RDW 17.3 H Plt Count 260 MPV 8.4 Absolute Neuts (auto) 2.6 Neutrophils % 44.3 D Lymphocytes % 47.1 H D Monocytes % 7.7 Eosinophils % 0.4 Basophils % 0.5 Nucleated RBC % 0 Sodium Potassium Chloride Carbon Dioxide Anion Gap BUN Creatinine Creat Clearance w eGFR Random Glucose Calcium Iron 19 L TIBC 352 Iron Saturation 5 L LD Total Stool Occult Blood Negative 11/25/17 11/25/17 06:00 06:00 WBC 4.9 RBC 3.82 Hgb 9.3 L Hct 28.7 L MCV 74.9 L MCH 24.2 L MCHC 32.3 RDW 16.9 H Plt Count 236 MPV 8.0 Absolute Neuts (auto) Neutrophils % Lymphocytes % Monocytes % Eosinophils % Basophils % Nucleated RBC % Sodium 139 Potassium 3.2 L Chloride 107 Carbon Dioxide 24 Anion Gap 8 BUN 6 L Creatinine 0.6 Creat Clearance w eGFR > 60 Random Glucose 93 Calcium 7.7 L Iron TIBC Iron Saturation LD Total 135 Stool Occult Blood Active Medications Generic Name Dose Route Start Last Admin Trade Name Freq PRN Reason Stop Dose Admin Acetaminophen 325 mg 11/23/17 17:25 11/24/17 23:07 Tylenol - PO 325 mg Q4H PRN Administration PAIN LEVEL 1-5 Docusate Sodium 100 mg 11/24/17 10:00 11/24/17 21:29 Colace - PO Not Given BID KAREEM Fentanyl 50 mcg 11/25/17 09:38 Sublimaze Injection - IVPUSH [id number] PRN PAIN-PACU ORDER X 4 DOSES ONLY Ceftriaxone Sodium 1 gm/ 50 mls @ 100 mls/hr 11/23/17 10:00 11/24/17 10:00 Dextrose IVPB 100 mls/hr DAILY KAREEM Administration Protocol Metronidazole 500 mg in 100 mls @ 100 mls/hr 11/23/17 02:00 11/25/17 01:15 Flagyl 500mg Premixed Ivpb - IVPB 100 mls/hr Q8H-IV KAREEM Administration Sodium Chloride 1,000 mls @ 83 mls/hr 11/23/17 01:30 11/25/17 05:42 Normal Saline - IV 83 mls/hr ASDIR KAREEM Administration Lactated Ringer's 1,000 mls @ 75 mls/hr 11/25/17 09:45 Lactated Ringers Solution IV ASDIR KAREEM Ondansetron HCl 4 mg 11/23/17 01:36 11/25/17 04:03 Zofran Injection IVPUSH 4 mg Q4H PRN Administration NAUSEA AND/OR VOMITING Ondansetron HCl 4 mg 11/25/17 09:38 Zofran Injection IVPUSH Q6H PRN NAUSEA AND/OR VOMITING Oxycodone HCl 5 mg 11/23/17 17:25 11/25/17 02:28 Roxicodone - PO 5 mg Q4H PRN Administration PAIN LEVEL 6-10 Polyethylene Glycol 17 gm 11/24/17 07:36 11/24/17 17:49 Miralax (For Daily Use) - PO 17 gm DAILY PRN Administration CONSTIPATION Senna 2 tab 11/24/17 07:35 Senna - PO HS PRN CONSTIPATION IMAGING: Abdominal US: Diffuse gallbladder wall thickening suggestive of adenomyomasis. No biliary tract dilation, cholecystitis, cholelithiasis. CT abdomen/ pelvis: Mild gallbladder wall thickening, small amount of pericholecystic fluid, without calculus. No pneumoperitoneum, abscess, bowel obstruction, or free air noted. No acute appendicitis. Transvaginal US: No ovarian torsion. Possible uterine adenomyosis noted. HIDA scan: No filling defect of gallbladder noted, ruling out cystic duct obstruction. ASSESSMENT/PLAN: Patient is a 42 year old female with history of GERD, presents with complaint of sudden onset, dull, right upper and lower quadrant abdominal pain with radiation to the back and nonbloody, billious vomiting. Right upper quadrant abdominal pain -Likely secondary to biliary colic -GI (Dr. Tang) consult appreciated. -Surgery (Dr. Pierre) consult appreciated. Patient for laparoscopic cholecystectomy today. -ID (Dr. Ayala) consult appreciated: Continue empiric Ceftriaxone 1gram QD, Metronidazole 500mg Q8H -Tylenol 325mg PO Q4H PRN for pain 1-5 -Oxycodone 5mg PO Q4H PRN for pain 6-10 -Zofran 4mg IV Q4H for nausea Anemia Hb 9.3, Hct 28.7 -Patient is currently menstruating. -Stool for occult blood negative yesterday -Total bilirubin 0.3 -LDH 135 -Fe 19 -TIBC 353 -Fe saturation 5 -Folate 842 -B12 24 Hypokalemia -Potassium 3.2 today -Repleted with 10meq IV X1, and 20meq K-dur PO X1. -Will follow CMP Constipation -Miralax 17 grams PO FEN -IV normal saline 83mL/hr -Follow CMP -NPO for lap olivier tomorrow Prophylaxis -SCDs B/L lower extremities Disposition Continue care in medical surgical floor for laparoscopic cholecystectomy today. Visit type - Emergency Visit Emergency Visit: Yes ED Registration Date: 11/24/17 Care time: The patient presented to the Emergency Department on the above date and was hospitalized for further evaluation of their emergent condition. - New Patient This patient is new to me today: No - Critical Care Critical Care patient: No - Discharge Referral Referred to [facility] Med P.C.: No
[2017-11-25] MEDS: DOCUSATE SODIUM 100 MG CAPSULE (FP) PO SCH ×2 (15:19→21:53)
[2017-11-25] MEDS ORDERED: DEXTROSE 5%-WATER - 50 ML IVPB ONE (15:21)
[2017-11-25] MEDS ORDERED: cefTRIAXone SODIUM 1 GM VIAL ONE (15:21)
[2017-11-25] MEDS: LACTATED RINGERS SOLUTION 1,000 ML IV SCH ×2 (15:31→17:50)
[2017-11-25] MEDS: CEFTRIAXONE 1 GM in DEXTROSE 5%-WATER - 50 ML IVPB SCH (16:45)
[2017-11-25] MEDS ORDERED: POTASSIUM CHLORIDE TABS 20 MEQ TABLET.ER (FP) PO ONE (17:15)
--- NOTE | 2017-11-25 18:14 | PN ---
Teaching Attending Note Name of Resident: Fransisco Dominique ATTENDING PHYSICIAN STATEMENT I saw and evaluated the patient. I reviewed the resident's note and discussed the case with the resident. I agree with the resident's findings and plan as documented. SUBJECTIVE: seen in am before sx . denied abd pain . OBJECTIVE: NAD CV : RRR Lungs: CTAB ext: no edema Abd: soft, ND, NT. NL BS ASSESSMENT AND PLAN: 42 y/o lady with h/o C section who presented with abd pain , n/V . 1- Abd pain, nausea and vomiting . no clear etiology.? cyclic vomiting syndrome . resolved . sx was canceled yesterday - CCY today for adenomyomatosis - dc abx - bowel regimen - cont IVF for now . 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
[2017-11-25] MEDS ORDERED: SENNOSIDES 8.6MG TABLET (FP) PO PRN (18:49)
[2017-11-25] MEDS ORDERED: ACETAMINOPHEN 325 MG TABLET (FP) PO PRN (18:49)
[2017-11-25] MEDS ORDERED: POLYETHYLENE GLYCOL 3350 119 GM BTL PO PRN (18:49)
[2017-11-26 06:49] LABS: HEMATOCRIT 26.8 % (32.4-45.2); HEMOGLOBIN 8.6 GM/dL (10.7-15.3); MCH 24.1 pg (25.7-33.7); MCHC 31.9 g/dl (32.0-36.0); MEAN CELL VOLUME 75.4 fl (80-96); MEAN PLT VOLUME 7.8 fl (7.5-11.1); PLATELET COUNT 214 K/MM3 (134-434); RBC 3.55 M/mm3 (3.60-5.2); RDW 17.1 % (11.6-15.6); WHITE BLOOD COUNT 4.9 K/mm3 (4.0-10.0)
[2017-11-26 07:32] LABS: ALBUMIN 2.9 g/dl (3.4-5.0); ALK PHOS 79 U/L (45-117); ANION GAP 6 MMOL/L (8-16); BILIRUBIN,TOTAL 0.8 mg/dL (0.2-1); BLOOD UREA NITROGEN 5 mg/dL (7-18); CALCIUM 7.8 mg/dL (8.5-10.1); CHLORIDE 104 mmol/L (98-107); CO2 27 mmol/L (21-32); CREATININE 0.6 mg/dL (0.55-1.3); GLUCOSE,RANDOM 92 mg/dL (74-106); MAGNESIUM 1.9 mg/dL (1.8-2.4); PHOSPHOROUS 2.7 mg/dL (2.5-4.9); POTASSIUM 3.6 mmol/L (3.5-5.1); SGOT/AST 788 U/L (15-37); SGPT/ALT 369 U/L (13-61); SODIUM 137 mmol/L (136-145)
[2017-11-26] MEDS: DOCUSATE SODIUM 100 MG CAPSULE (FP) PO SCH ×2 (09:33→21:09)
[2017-11-26] MEDS: oxyCODONE HCL 5 MG TABLET PO PRN ×2 (09:33→17:23)
--- NOTE | 2017-11-26 09:57 | PN ---
Progress Note, Physician Chief Complaint: day #1 s/p lap olivier - Current Medication List Current Medications: Active Medications Acetaminophen (Tylenol -) 325 mg PO Q4H PRN PRN Reason: PAIN LEVEL 1-5 Last Admin: 11/26/17 09:32 Dose: 325 mg Docusate Sodium (Colace -) 100 mg PO BID KAREEM Last Admin: 11/26/17 09:33 Dose: 100 mg Oxycodone HCl (Roxicodone -) 5 mg PO Q4H PRN PRN Reason: PAIN LEVEL 6-10 Last Admin: 11/26/17 09:33 Dose: 5 mg Polyethylene Glycol (Miralax (For Daily Use) -) 17 gm PO DAILY PRN PRN Reason: CONSTIPATION Senna (Senna -) 2 tab PO HS PRN PRN Reason: CONSTIPATION - Objective Vital Signs: Vital Signs Temperature 98 F 11/26/17 06:00 Pulse Rate 85 11/26/17 06:00 Respiratory Rate 18 11/26/17 06:00 Blood Pressure 125/81 11/26/17 06:00 O2 Sat by Pulse Oximetry (%) 100 11/26/17 05:00 Labs: CBC, BMP 11/26/17 06:30 11/26/17 06:30 INR, PTT INR 1.16 (0.83-1.09) H 11/24/17 06:30 Assessment/Plan Doing well s/p GA for lap olivier. Pain is minimal, has no c/o, no apparent anesthetic issues/complications.
--- NOTE | 2017-11-26 10:59 | PN ---
Progress Note, Physician Chief Complaint: abdominal pain History of Present Illness: 42 yo female PMH GERD was BIBEMS with sudden onset lower abdominal pain. Patient woke up this morning feeling lower abdominal cramps (currently menstruating) and took tylenol for pain. she has been stable postoperativley. tolertaing diet minimal abdominal pain. - Current Medication List Current Medications: Active Medications Acetaminophen (Tylenol -) 325 mg PO Q4H PRN PRN Reason: PAIN LEVEL 1-5 Last Admin: 11/26/17 09:32 Dose: 325 mg Docusate Sodium (Colace -) 100 mg PO BID KAREEM Last Admin: 11/26/17 09:33 Dose: 100 mg Oxycodone HCl (Roxicodone -) 5 mg PO Q4H PRN PRN Reason: PAIN LEVEL 6-10 Last Admin: 11/26/17 09:33 Dose: 5 mg Polyethylene Glycol (Miralax (For Daily Use) -) 17 gm PO DAILY PRN PRN Reason: CONSTIPATION Senna (Senna -) 2 tab PO HS PRN PRN Reason: CONSTIPATION - Objective Vital Signs: Vital Signs Temperature 98 F 11/26/17 06:00 Pulse Rate 85 11/26/17 06:00 Respiratory Rate 18 11/26/17 06:00 Blood Pressure 125/81 11/26/17 06:00 O2 Sat by Pulse Oximetry (%) 100 11/26/17 05:00 Vital Signs Period Temp Pulse Resp BP Sys/Meléndez Pulse Ox Last 24 Hr 97.9 F-98.6 F 73-91 16-20 125-146/79-87 100-100 Constitutional: Yes: Well Nourished, No Distress, Calm Eyes: Yes: Conjunctiva Clear, EOM Intact HENT: Yes: Atraumatic, Normocephalic Neck: Yes: Supple, Trachea Midline Cardiovascular: Yes: Regular Rate and Rhythm, S1, S2 Respiratory: Yes: Regular, CTA Bilaterally Gastrointestinal: Yes: Normal Bowel Sounds, Soft, Tenderness (incisonal) ...Rectal Exam: Yes: Deferred Genitourinary: No: CVA Tenderness - Left, CVA Tenderness - Right Extremities: No: Cool, Cyanosis Edema: No Peripheral Pulses WNL: Yes Peripheral Pulses: Left Radial: 2+, Right Radial: 2+, Left Doralis Pedis: 2+, Right Dorsalis Pedis: 2+ Integumentary: No: Bruising, Erythema, Jaundice, Rash Wound/Incision: Yes: Clean/Dry, Well Approximated, Dressing Dry and Intact Neurological: Yes: Alert, Oriented Psychiatric: Yes: Alert, Oriented Labs: CBC, BMP 11/26/17 06:30 11/26/17 06:30 INR, PTT INR 1.16 (0.83-1.09) H 11/24/17 06:30 CBC,CMP WBC 4.9 K/mm3 (4.0-10.0) 11/26/17 06:30 RBC 3.55 M/mm3 (3.60-5.2) L 11/26/17 06:30 Hgb 8.6 GM/dL (10.7-15.3) L 11/26/17 06:30 Hct 26.8 % (32.4-45.2) L 11/26/17 06:30 MCV 75.4 fl (80-96) L 11/26/17 06:30 MCH 24.1 pg (25.7-33.7) L 11/26/17 06:30 MCHC 31.9 g/dl (32.0-36.0) L 11/26/17 06:30 RDW 17.1 % (11.6-15.6) H 11/26/17 06:30 Plt Count 214 K/MM3 (134-434) 11/26/17 06:30 MPV 7.8 fl (7.5-11.1) 11/26/17 06:30 Absolute Neuts (auto) 2.6 K/mm3 (1.5-8.0) 11/24/17 15:45 Neutrophils % 44.3 % (42.8-82.8) D 11/24/17 15:45 Lymphocytes % 47.1 % (8-40) H D 11/24/17 15:45 Monocytes % 7.7 % (3.8-10.2) 11/24/17 15:45 Eosinophils % 0.4 % (0-4.5) 11/24/17 15:45 Basophils % 0.5 % (0-2.0) 11/24/17 15:45 Nucleated RBC % 0 % (0-0) 11/24/17 15:45 Sodium 139 mmol/L (136-145) 11/26/17 11:48 Potassium 3.5 mmol/L (3.5-5.1) 11/26/17 11:48 Chloride 104 mmol/L (98-107) 11/26/17 11:48 Carbon Dioxide 25 mmol/L (21-32) 11/26/17 11:48 Anion Gap 9 MMOL/L (8-16) 11/26/17 11:48 BUN 5 mg/dL (7-18) L 11/26/17 11:48 Creatinine 0.5 mg/dL (0.55-1.3) L 11/26/17 11:48 Creat Clearance w eGFR > 60 (>60) 11/26/17 11:48 POC Glucometer 81 UNITS (80-120) 11/24/17 06:36 Random Glucose 96 mg/dL (74-106) 11/26/17 11:48 Calcium 8.4 mg/dL (8.5-10.1) L 11/26/17 11:48 Phosphorus 2.7 mg/dL (2.5-4.9) 11/26/17 06:30 Magnesium 1.9 mg/dL (1.8-2.4) 11/26/17 06:30 Iron 19 ug/dL (27-159) L 11/23/17 17:50 TIBC 352 ug/dL (250-450) 11/23/17 17:50 Iron Saturation 5 % (15-55) L 11/23/17 17:50 Ferritin 6.6 ng/ml (8-388) L 11/23/17 17:50 Total Bilirubin 0.9 mg/dL (0.2-1) 11/26/17 11:48 AST 955 U/L (15-37) H 11/26/17 11:48 ALT 555 U/L (13-61) H 11/26/17 11:48 Alkaline Phosphatase 98 U/L (45-117) 11/26/17 11:48 LD Total 135 U/L (84-246) 11/25/17 06:00 Total Protein 6.7 g/dl (6.4-8.2) 11/26/17 11:48 Albumin 3.3 g/dl (3.4-5.0) L 11/26/17 11:48 Lipase 102 U/L (73-393) 11/22/17 14:47 Vitamin B12 842 pg/ml (193-986) 11/23/17 17:50 Serum Folate 24 ng/ml (3.1-17.5) H 11/23/17 17:50 Serum , Qual Negative 11/22/17 14:47 Problem List - Problems (1) Adenomyomatosis of gallbladder Assessment/Plan: 42yo female with Adenomyomatosis of GB with colic symptoms POD#1 s/p Lap Cholecystectomy, new onset transaminitis probably attributable to the surgical trauma. uncertain of the specific reason but likley to resolve with time. Diet as tolerated OOB and ambulate repeat labs IVF hydration will follow Code(s): D13.5 - BENIGN NEOPLASM OF EXTRAHEPATIC BILE DUCTS (2) Biliary colic Code(s): K80.50 - CALCULUS OF BILE DUCT W/O CHOLANGITIS OR CHOLECYST W/O OBST (3) GERD (gastroesophageal reflux disease) Code(s): K21.9 - GASTRO-ESOPHAGEAL REFLUX DISEASE WITHOUT ESOPHAGITIS Qualifiers: Esophagitis presence: without esophagitis Qualified Code(s): K21.9 - Gastro -esophageal reflux disease without esophagitis
[2017-11-26 12:55] LABS: ALBUMIN 3.3 g/dl (3.4-5.0); ALK PHOS 98 U/L (45-117); ANION GAP 9 MMOL/L (8-16); BILIRUBIN,TOTAL 0.9 mg/dL (0.2-1); BLOOD UREA NITROGEN 5 mg/dL (7-18); CALCIUM 8.4 mg/dL (8.5-10.1); CHLORIDE 104 mmol/L (98-107); CO2 25 mmol/L (21-32); CREATININE 0.5 mg/dL (0.55-1.3); GLUCOSE,RANDOM 96 mg/dL (74-106); POTASSIUM 3.5 mmol/L (3.5-5.1); SGOT/AST 955 U/L (15-37); SGPT/ALT 555 U/L (13-61); SODIUM 139 mmol/L (136-145); TOT PROT 6.7 g/dl (6.4-8.2)
--- NOTE | 2017-11-26 13:54 | PN ---
GI Progress Note Subjective: For Dr. Tang who resumes care 11/28 Asked to evaluate elevated liver chemistries Patient states feeling well No acutre events overnight S/P lap Olivier POD 1. No flatus. no BM as of yet - Objective Vital Signs: Vital Signs Temperature 98.2 F 11/26/17 10:00 Pulse Rate 73 11/26/17 10:00 Respiratory Rate 16 11/26/17 13:00 Blood Pressure 143/87 11/26/17 10:00 O2 Sat by Pulse Oximetry (%) 100 11/26/17 13:00 Constitutional: Calm Eyes: No: Sclera Icterus Cardiovascular: Yes: Regular Rate and Rhythm Respiratory: Yes: CTA Bilaterally Gastrointestinal Inspection: Yes: Scars (covered trochar scars). No: Distention ...Auscultate: Yes: Normoactive Bowel Sounds ...Palpate: Yes: Tenderness (TTP RUQ at at trochar sites). No: Guarding, Hepatomegaly ...Percussion: No: Tympanitic Edema: No (No LE edema) Labs: CBC, BMP 11/26/17 06:30 11/26/17 11:48 INR, PTT INR 1.16 (0.83-1.09) H 11/24/17 06:30 Hepatic Panel Total Bilirubin 0.9 mg/dL (0.2-1) 11/26/17 11:48 AST 955 U/L (15-37) H 11/26/17 11:48 ALT 555 U/L (13-61) H 11/26/17 11:48 Alkaline Phosphatase 98 U/L (45-117) 11/26/17 11:48 Albumin 3.3 g/dl (3.4-5.0) L 11/26/17 11:48 Problem List - Problems (1) Transaminitis Assessment/Plan: S/P lap olivier with ? resection of portion of ectopic piece of liver ? if reactive to recent surgery Advise: Clear liquids Ordered MRI/MRCP of abdomen to evaluate hepatic parenchyma, biliary tract portal vasculature and to assess for perihepatic fluid collection Monitor LFTs Avoid hepatotoxic agents. Tylenol discontinued Code(s): R74.0 - NONSPEC ELEV OF LEVELS OF TRANSAMNS & LACTIC ACID DEHYDRGNSE
--- NOTE | 2017-11-26 14:42 | PN ---
Physical Exam: SUBJECTIVE: Patient seen and examined at bedside, resting comfortably in exam bed. She is POD #1 s/p laparoscopic cholecystectomy. She admits sharp, diffuse abdominal pain worst at umbilical laparoscopic surgical site. Provoked with movement and deep respiration. tolerating regular diet well, eating mashed potatoes, string beans an salad. Denies abdominal pain, nausea, vomiting. She has not yet had bowel movement or passed flatus since the procedure. Urinating without dysuria, hematuria. Denies fevers, chill, shortness of breath, chest pain, palpitations, headache, change in vision, dizziness. OBJECTIVE: Vital Signs Period Temp Pulse Resp BP Sys/Meléndez Pulse Ox Last 24 Hr 97.9 F-98.6 F 73-91 16-20 125-146/79-87 100-100 GENERAL: The patient is awake, alert, oriented to person, place, time. In no acute distress. HEAD: Normocephalic, atraumatic. EYES: PERRLA, extraocular movements intact b/l. Sclera anicteric, conjunctiva without injection b/l. ENT: Oropharynx clear without exudates, lesion, or erythema. Moist mucous membranes. NECK: Trachea midline, full range of motion. Supple without lymphadenopathy or thyromegaly. LUNGS: Good inspiratory effort. Breath sounds equal, clear to auscultation bilaterally. No wheezes. No accessory muscle use. HEART: Regular rate and rhythm. S1, S2 auscultated without murmur, rub or gallop. ABDOMEN: Soft, nondistended. Four surgical wounds bandaged, clean. Gauze bandage over umbilicus with slight dried blood. Tender to light and deep palpation- worst over laparoscopic surgical sites over umbilicus, and right upper quadrant. Normoactive bowel sounds X4 quadrants. No guarding, no rebound. No hepatosplenomegaly appreciated. RECTAL: Good anal sphincter tone. No external or internal hemorrhoids noted. No stool within rectal vault. Faint streak light brown stool without hugh blood noted upon gloved finger. Sample sent for stool for occult blood. EXTREMITIES: 2+ radial and dorsalis pedis pulses b/l. Warm. No lower extremity edema b/l. No calf tenderness. NEUROLOGICAL: Cranial nerves II through XII grossly intact. Normal speech. No gross focal deficits. Strength 5/5 b/l upper extremities in flexion, extension, abduction, adduction. Strength 5/5 b/l lower extremities in hip flexion, extension, knee flexion, extension. Plantarflexion and dorsiflexion 5/5 b/l. PSYCH: Appropriate mood and affect upon my encounter today. SKIN: Warm, dry. Laparoscopic surgical sites with overlying gauze bandage and tegaderm clean, without drainage. . Laboratory Results - last 24 hr 11/26/17 11/26/17 11/26/17 06:30 06:30 11:48 WBC 4.9 RBC 3.55 L Hgb 8.6 L Hct 26.8 L MCV 75.4 L MCH 24.1 L MCHC 31.9 L RDW 17.1 H Plt Count 214 MPV 7.8 Sodium 137 139 Potassium 3.6 3.5 Chloride 104 104 Carbon Dioxide 27 25 Anion Gap 6 L 9 BUN 5 L 5 L Creatinine 0.6 0.5 L Creat Clearance w eGFR > 60 > 60 Random Glucose 92 96 Calcium 7.8 L 8.4 L Phosphorus 2.7 Magnesium 1.9 Total Bilirubin 0.8 0.9 AST 788 H 955 H ALT 369 H 555 H Alkaline Phosphatase 79 98 Total Protein 6.0 L 6.7 Albumin 2.9 L 3.3 L Active Medications Generic Name Dose Route Start Last Admin Trade Name Freq PRN Reason Stop Dose Admin Docusate Sodium 100 mg 11/25/17 22:00 11/26/17 09:33 Colace - PO 100 mg BID KAREEM Administration Oxycodone HCl 5 mg 11/26/17 13:35 Roxicodone - PO Q4H PRN PAIN LEVEL 7 - 10 Polyethylene Glycol 17 gm 11/25/17 18:49 Miralax (For Daily Use) - PO DAILY PRN CONSTIPATION Senna 2 tab 11/25/17 18:49 Senna - PO HS PRN CONSTIPATION IMAGING: Abdominal US: Diffuse gallbladder wall thickening suggestive of adenomyomasis. No biliary tract dilation, cholecystitis, cholelithiasis. CT abdomen/ pelvis: Mild gallbladder wall thickening, small amount of pericholecystic fluid, without calculus. No pneumoperitoneum, abscess, bowel obstruction, or free air noted. No acute appendicitis. Transvaginal US: No ovarian torsion. Possible uterine adenomyosis noted. HIDA scan: No filling defect of gallbladder noted, ruling out cystic duct obstruction. ASSESSMENT/PLAN: Patient is a 42 year old female with history of GERD, presented with complaint of sudden onset, dull, right upper and lower quadrant abdominal pain with radiation to the back and nonbloody, billious vomiting. She is POD #1 s/p laparoscopic cholecystectomy. Right upper quadrant abdominal pain -Likely secondary to biliary colic as patient admitted past episodes of similar symptoms over past year after eating heavy/ fried meals. -Surgery (Dr. Pierre) consult appreciated. Patient is POD #1 s/p laparoscopic cholecystectomy. Will encourage ambulation out of bed, and IV hydration. -ID (Dr. Ayala) consult appreciated: Continue empiric Ceftriaxone 1gram QD, Metronidazole 500mg Q8H -Oxycodone 5mg PO Q4H PRN for pain 6-10 -Tylenol discontinued due to transaminitis -Zofran 4mg IV Q4H for nausea Transaminitis -AST 955, ALT 555, Alk Phos 98, Total Bilirubin 0.9 -No transaminitis upon admission, or before laparoscopic cholecystectomy. -GI (Dr. Cervantes) consult appreciated: rise in transaminases may be reactive to surgery, however will consider fluid collection as alternative cause. F/U MRI abdomen with and without contrast, MRCP -Trend LFTs -Surgery (Dr. Pierre) consult appreciated: Transaminitis may be attributed to trauma from surgery. No hypotensive episodes during the procedure. There was accessory lobe of liver that was resected during the surgery. Anemia Hb 8.6, Hct 26.8 MCV 75.4 -Likely due to blood loss from menstrual period. Last menstrual period finished yesterday. -Stool for occult blood negative 11/24. -F/U rectal exam stool for occult blood. -Total bilirubin 0.9 today -LDH 135 -Fe 19 -TIBC 353 -Fe saturation 5 -Folate 842 -B12 24 Hypokalemia Resolved. Potassium 3.5 today -Will follow CMP Constipation -Miralax 17 grams PO FEN -Patient tolerates oral intake. Will encourage judicious hydration. -Electrolytes within normal limits. Follow CMP -Clear liquid diet Prophylaxis -SCDs B/L lower extremities Disposition Continue care in medical surgical floor for evaluation of transaminitis s/p laparoscopic cholecystectomy. Visit type - Emergency Visit Emergency Visit: Yes ED Registration Date: 11/24/17 Care time: The patient presented to the Emergency Department on the above date and was hospitalized for further evaluation of their emergent condition. - New Patient This patient is new to me today: No - Critical Care Critical Care patient: No - Discharge Referral Referred to [facility] Med P.C.: No
--- NOTE | 2017-11-26 14:57 | PN ---
Teaching Attending Note Name of Resident: Fransisco Dominique ATTENDING PHYSICIAN STATEMENT I saw and evaluated the patient. I reviewed the resident's note and discussed the case with the resident. I agree with the resident's findings and plan as documented. SUBJECTIVE: No fever or chills. minimal Abd pain. has nausea but no vomiting. OBJECTIVE: NAD CV : RRR Lungs: CTAB Ext: no edema Abd: soft,minimal tenderness in all quadrants. nl BS, no rebound tenderness or guarding. ASSESSMENT AND PLAN: 42 y/o lady with h/o C section who presented with abd pain , N/V . 1- Abd pain, nausea and vomiting. no clear etiology.? cyclic vomiting syndrome due to marijuana. resolved . 2- Gall bladder ademnomyomatosis: s/p CCY yesterday. tolerated food but LFTS increased dc morphine 3- Acute transaminitis: non obstructive picture. No hypotension documented during surgery Possibly due to ectopic hepatic piece resection ( resection confirmed with Dr. Osborn) follow levels. MRCP ordered. 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
[2017-11-27] MEDS: oxyCODONE HCL 5 MG TABLET PO PRN (04:30)
[2017-11-27 07:49] LABS: HEMOGLOBIN 8.9 GM/dL (10.7-15.3); MCH 24.3 pg (25.7-33.7); MEAN CELL VOLUME 75.9 fl (80-96); MEAN PLT VOLUME 8.3 fl (7.5-11.1); PLATELET COUNT 227 K/MM3 (134-434); RBC 3.68 M/mm3 (3.60-5.2); RDW 16.9 % (11.6-15.6); WHITE BLOOD COUNT 4.8 K/mm3 (4.0-10.0)
[2017-11-27 09:07] LABS: ALBUMIN 3.2 g/dl (3.4-5.0); ALK PHOS 107 U/L (45-117); ANION GAP 11 MMOL/L (8-16); BILIRUBIN,TOTAL 0.4 mg/dL (0.2-1); BLOOD UREA NITROGEN 5 mg/dL (7-18); CALCIUM 8.5 mg/dL (8.5-10.1); CHLORIDE 103 mmol/L (98-107); CO2 25 mmol/L (21-32); CREATININE 0.4 mg/dL (0.55-1.3); GLUCOSE,RANDOM 100 mg/dL (74-106); POTASSIUM 3.4 mmol/L (3.5-5.1); SGOT/AST 437 U/L (15-37); SGPT/ALT 563 U/L (13-61); SODIUM 139 mmol/L (136-145); TOT PROT 6.4 g/dl (6.4-8.2)
[2017-11-27] MEDS: DOCUSATE SODIUM 100 MG CAPSULE (FP) PO SCH ×2 (09:46→21:18)
[2017-11-27 09:55] LABS: LIPASE 93 U/L (73-393)
[2017-11-27] MEDS ORDERED: IBUPROFEN 400 MG TABLET (FP) PO ONE ×3 (09:56→18:59)
[2017-11-27] MEDS ORDERED: POTASSIUM CHLORIDE TABS 20 MEQ TABLET.ER (FP) PO ONE (14:27)
--- NOTE | 2017-11-27 14:34 | PN ---
Progress Note (short form) - Note Progress Note: Subjective: No fever or chills. has no Abd pain. No N/V Objective: Vital Signs: Last Vital Signs Temp Pulse Resp BP Pulse Ox 98.1 F 75 16 147/87 100 11/27/17 09:45 11/27/17 09:45 11/27/17 09:45 11/27/17 09:45 11/26/17 21:00 Laboratory Results - last 24 hr 11/22/17 11/26/17 11/27/17 21:50 13:25 06:30 WBC RBC Hgb Hct MCV MCH MCHC RDW Plt Count MPV Sodium 139 Potassium 3.4 L Chloride 103 Carbon Dioxide 25 Anion Gap 11 BUN 5 L Creatinine 0.4 L Creat Clearance w eGFR > 60 Random Glucose 100 Calcium 8.5 Total Bilirubin 0.4 AST 437 H ALT 563 H Alkaline Phosphatase 107 Total Protein 6.4 Albumin 3.2 L Lipase 93 Stool Occult Blood Negative C. trachomatis (BALBIR) Negative N. gonorrhoeae (BALBIR) Negative 11/27/17 11/27/17 06:30 06:30 WBC 4.8 RBC 3.68 Hgb 8.9 L Hct 28.0 L MCV 75.9 L MCH 24.3 L MCHC 32.0 RDW 16.9 H Plt Count 227 MPV 8.3 Sodium Potassium Chloride Carbon Dioxide Anion Gap BUN Creatinine Creat Clearance w eGFR Random Glucose Calcium Total Bilirubin AST ALT Alkaline Phosphatase Total Protein Albumin Lipase Cancelled Stool Occult Blood C. trachomatis (BALBIR) N. gonorrhoeae (BALBIR) Physical Exam: NAD CV : RRR Lungs: CTAB Ext: no edema Abd: No tenderness . NL BS ASSESSMENT AND PLAN: 42 y/o lady with h/o C section who presented with abd pain , N/V . 1- Abd pain, nausea and vomiting. no clear etiology.? cyclic vomiting syndrome due to marijuana. resolved . 2- Gall bladder ademnomyomatosis: s/p CCY 3- Acute transaminitis: likely due to liver trauma form resection of ectopic piece LFTS improved dramatically MRCP with post surgical changes. No obstruction will monitor her LFTs as out pt f/u with Gi and surgery closely plan d/w Dr. Osborn 4- Iron def anemia: likely due to heavy menstrual periods from fibroids - F/u with DIRECTOR CLINICAL DATA as out pt - start iron supplementation at dc - will probably need iron infusion as out patient Dc home . d/w Dr. Osborn . Visit type - Emergency Visit Emergency Visit: Yes ED Registration Date: 11/24/17 Care time: The patient presented to the Emergency Department on the above date and was hospitalized for further evaluation of their emergent condition. - New Patient This patient is new to me today: No - Critical Care Critical Care patient: No
[2017-11-28] MEDS ORDERED: IBUPROFEN 400 MG TABLET (FP) PO ONE (03:03)
--- NOTE | 2017-11-28 08:39 | PN ---
Progress Note, Physician Chief Complaint: abdominal pain History of Present Illness: 42 yo female PMH GERD was BIBEMS with sudden onset lower abdominal pain. Patient woke up this morning feeling lower abdominal cramps (currently menstruating) and took tylenol for pain. she has been stable postoperativley. tolertaing diet minimal abdominal pain. - Current Medication List Current Medications: Active Medications Docusate Sodium (Colace -) 100 mg PO BID KAREEM Last Admin: 11/27/17 21:18 Dose: Not Given Polyethylene Glycol (Miralax (For Daily Use) -) 17 gm PO DAILY PRN PRN Reason: CONSTIPATION Last Admin: 11/27/17 09:46 Dose: 17 gm Senna (Senna -) 2 tab PO HS PRN PRN Reason: CONSTIPATION Last Admin: 11/26/17 17:24 Dose: 2 tab - Objective Vital Signs: Vital Signs Temperature 98.2 F 11/28/17 07:51 Pulse Rate 73 11/28/17 07:51 Respiratory Rate 16 11/28/17 07:51 Blood Pressure 143/96 11/28/17 07:51 O2 Sat by Pulse Oximetry (%) 100 11/27/17 21:00 Vital Signs Period Temp Pulse Resp BP Sys/Meléndez Pulse Ox Last 24 Hr 98.1 F-99.6 F 65-75 16-18 131-147/84-96 100-100 Constitutional: Yes: Well Nourished, No Distress, Calm Eyes: Yes: Conjunctiva Clear, EOM Intact HENT: Yes: Atraumatic, Normocephalic Neck: Yes: Supple, Trachea Midline Cardiovascular: Yes: Regular Rate and Rhythm, S1, S2 Respiratory: Yes: Regular, CTA Bilaterally Gastrointestinal: Yes: Normal Bowel Sounds, Soft. No: Tenderness ...Rectal Exam: Yes: Deferred Genitourinary: No: CVA Tenderness - Left, CVA Tenderness - Right Extremities: No: Cool, Cyanosis Edema: No Peripheral Pulses WNL: Yes Wound/Incision: Yes: Clean/Dry, Well Approximated, Dressing Dry and Intact Neurological: Yes: Alert, Oriented Psychiatric: Yes: Alert, Oriented Labs: CBC, BMP 11/27/17 06:30 11/27/17 06:30 INR, PTT INR 1.16 (0.83-1.09) H 11/24/17 06:30 Problem List - Problems (1) Adenomyomatosis of gallbladder Assessment/Plan: 42yo female with Adenomyomatosis of GB with colic symptoms POD#3 s/p Lap Cholecystectomy, new onset transaminitis probably attributable to the surgical trauma. uncertain of the specific reason but likley to resolve with time. Diet as tolerated OOB and ambulate repeat labs IVF hydration Discharge planning will follow Code(s): D13.5 - BENIGN NEOPLASM OF EXTRAHEPATIC BILE DUCTS (2) Biliary colic Code(s): K80.50 - CALCULUS OF BILE DUCT W/O CHOLANGITIS OR CHOLECYST W/O OBST (3) GERD (gastroesophageal reflux disease) Code(s): K21.9 - GASTRO-ESOPHAGEAL REFLUX DISEASE WITHOUT ESOPHAGITIS Qualifiers: Esophagitis presence: without esophagitis Qualified Code(s): K21.9 - Gastro -esophageal reflux disease without esophagitis
[2017-11-28 08:50] LABS: ALBUMIN 3.5 g/dl (3.4-5.0); BILIRUBIN,DIRECT 0.2 mg/dL (0.0-0.2); BILIRUBIN,TOTAL 0.5 mg/dL (0.2-1); TOT PROT 7.3 g/dl (6.4-8.2)
[2017-11-28] MEDS ORDERED: PT OWN MED DRAWER 7, Y5N ONE (10:26)
[2017-11-28] MEDS: DOCUSATE SODIUM 100 MG CAPSULE (FP) PO SCH (10:36)
--- NOTE | 2017-11-28 13:35 | PN ---
Teaching Attending Note Name of Resident: Fransisco Dominique ATTENDING PHYSICIAN STATEMENT I saw and evaluated the patient. I reviewed the resident's note and discussed the case with the resident. I agree with the resident's findings and plan as documented. SUBJECTIVE: No fever or chills . has some abd discomfort at site of sx wounds. OBJECTIVE: NAD CV : RRR Lungs: CTAB Ext: no edema Abd: tenderness in all quadrants. laparoscopic wounds with bandage . NL BS ASSESSMENT AND PLAN: 42 y/o lady with h/o C section who presented with abd pain , N/V . 1- Abd pain, nausea and vomiting. no clear etiology.? cyclic vomiting syndrome due to marijuana. resolved . 2- Gall bladder ademnomyomatosis: s/p CCY 3- Acute transaminitis: likely due to liver trauma form resection of ectopic piece LFTS improved dramatically MRCP with post surgical changes. No obstruction will monitor her LFTs as out pt f/u with Gi and surgery closely 4- Iron def anemia: likely due to heavy menstrual periods from fibroids - F/u with RELAYS DRAFTSPERSON as out pt - start iron supplementation at nd - will probably need iron infusion as out patient dispo : nd home
[2017-11-28 14:54] VITALS: BP 144/85; PULSE 92; TEMP 98.7
--- NOTE | 2017-11-28 16:04 | DS ---
Physical Exam: SUBJECTIVE: Patient seen and examined at bedside this morning. She is POD #3 s/ p laparoscopic cholecystectomy. Denies any acute complaints this morning. Tolerating regular diet without abdominal pain, nausea, vomiting, diarrhea, constipation. Urinating without hematuria, dysuria. Denies headache, change in vision, lightheadedness, fevers, chills, shortness of breath, chest pain, palpitations. OBJECTIVE: Vital Signs Period Temp Pulse Resp BP Sys/Meléndez Pulse Ox Last 24 Hr 98.2 F-99.6 F 73-92 16-18 139-159/85-96 100-100 PHYSICAL EXAM GENERAL: The patient is awake, alert, oriented to person, place, time. In no acute distress. HEAD: Normocephalic, atraumatic. EYES: PERRLA, extraocular movements intact b/l. Sclera anicteric, conjunctiva without injection b/l. ENT: Oropharynx clear without exudates, lesion, or erythema. Moist mucous membranes. NECK: Trachea midline, full range of motion. Supple without lymphadenopathy or thyromegaly. LUNGS: Good inspiratory effort. Breath sounds equal, clear to auscultation bilaterally. No wheezes. No accessory muscle use. HEART: Regular rate and rhythm. S1, S2 auscultated without murmur, rub or gallop. ABDOMEN: Soft, nondistended. Four surgical wounds bandaged, clean. Gauze bandage over umbilicus with slight dried blood. Tender to light and deep palpation- worst over laparoscopic surgical sites over umbilicus, and right upper quadrant. Normoactive bowel sounds X4 quadrants. No guarding, no rebound. No hepatosplenomegaly appreciated. RECTAL: Good anal sphincter tone. No external or internal hemorrhoids noted. No stool within rectal vault. Faint streak light brown stool without hugh blood noted upon gloved finger. Sample sent for stool for occult blood. EXTREMITIES: 2+ radial and dorsalis pedis pulses b/l. Warm. No lower extremity edema b/l. No calf tenderness. NEUROLOGICAL: Cranial nerves II through XII grossly intact. Normal speech. No gross focal deficits. Strength 5/5 b/l upper extremities in flexion, extension, abduction, adduction. Strength 5/5 b/l lower extremities in hip flexion, extension, knee flexion, extension. Plantarflexion and dorsiflexion 5/5 b/l. PSYCH: Appropriate mood and affect upon my encounter today. SKIN: Warm, dry. Laparoscopic surgical sites with overlying gauze bandage and tegaderm clean, without drainage. . LABS Laboratory Results - last 24 hr 11/28/17 07:30 Total Bilirubin 0.5 Direct Bilirubin 0.2 AST 178 H ALT 449 H Alkaline Phosphatase 105 Total Protein 7.3 Albumin 3.5 HOSPITAL COURSE: Date of Admission:11/24/17 Date of Discharge: 11/28/17 Patient is a 42 year old female with history of GERD, presented with complaint of sudden onset, dull, right upper and lower quadrant abdominal pain with radiation to the back and nonbloody, billious vomiting. Abdominal US showed diffuse gallbladder wall thickening suggestive of adenomyomasis. No biliary tract dilation, cholecystitis, cholelithiasis. CT abdomen/ pelvis showed mild gallbladder wall thickening, small amount of pericholecystic fluid, without calculus. No pneumoperitoneum, abscess, bowel obstruction, or free air noted. No acute appendicitis. Transvaginal US showed no ovarian torsion. Possible uterine adenomyosis noted. HIDA scan showed no filling defect of gallbladder noted, ruling out cystic duct obstruction. GI consult discussed adenomyomasis unlikely to cause the pain. With surgical consult, patient agreed to laparoscopic cholecystectomy. After the procedure, she was noted to have transaminitis (AST, ALT within normal limits at admission). GI consult discussed likely reactive due to surgery, vs. possible fluid collection. Surgical consult discussed accessory hepatic lobe of liver that was resected during surgery that may explain her transaminits. Transaminitis resolved and patient was discharged. Discharged with Ibuprofen for pain. Instructed to follow up with PCP Dr. Dominique/ Dr. Roth within one week for CBC, CMP. Follow up with GI, general surgery, and OB-BLOW PIT HELPER. Minutes to complete discharge: 35 Discharge Summary Reason For Visit: ABDOMINAL PAIN,VOMITING Condition: Improved - Instructions Diet, Activity, Other Instructions: You were admitted for stomach pain, and vomiting. You were treated and had cholecystectomy and resection of an extra piece of liver. you liver enzymes increased after surgery, however they are significantly improving. It is important that you follow up with the GI physician Dr. Tang within one week of discharge. There was some thickening of tissue of the uterus that could contribute to your symptoms. We are referring you to follow up with OB-BLOW PIT HELPER Dr. Garibay within one week of discharge. It is important that you follow up with your primary care physician within one week of discharge (Dr. Dominique/ Dr. Roth) It is important for you to follow up with the Surgeon Dr. Pierre follow with Dr. Calabrese ( apartment property manager ) as you might need IV iron infusion You are being discharged on Ibuprofen for pain 400mg every 8 hours as needed. you need blood work on 11/30. please do it and fax it to Dr. Osborn and Dr. Tang Please return to the nearest emergency department if you experience any fevers, chills, shortness of breath, chest pain, palpitations, worsening abdominal pain , nausea, vomiting, diarrhea, bleeding or any drainage from surgical wounds. Postoperative instructions: You had a laparoscopic cholecystectomy on 11/25/[address] Kenneth Pierre of [facility]. Activity: Resume your usual activities gradually, but no heavy exertion or lifting more than 10-15 pounds for 1 month. Remove dressings 48 hours after surgery; sticky tapes underneath will fall off by themselves. You may shower daily starting then, just pat the incision areas dry. No bath or swimming until skin incisions have healed. Eat lightly at first, but advance to your usual diet as tolerated. Follow-up: Call Dr. Pierre' office at [phone] to make your postop appointment (Tuesday in approximately 2 weeks after surgery). Clinic is held in the [facility] on the first floor of [facility]. Call the office if you have: * increasing pain not responsive to pain medication * fever of 101F or higher * vomiting * unusual or increasing bleeding or drainage from wounds * increasing redness or swelling at wound sites * inability to urinate Also, see your primary medical doctor within 1-2 weeks. take iron twice ad ay , then increase to three time a day after a week. please take colace ( over counter ) for constipation that iron can cause Referrals: Albert Roth MD [Staff Physician] - 12/06/17 Jhonny aTng MD [Staff Physician] - 1 Week Sammi Garibay MD [Staff Physician] - 1 Week Kenneth Pierre MD [Staff Physician] - 12/07/17 Shahzad Calabrese MD [Staff Physician] - 1 Week Disposition: HOME - Home Medications Comprehensive Discharge Medication List: Ambulatory Orders Ferrous Sulfate [Feosol] 325 mg PO BID #60 tablet 11/28/17 Ibuprofen 400 mg PO Q8H PRN #30 tablet 11/28/17 Miscellaneous Medical Supply [Outpatient Order] 1 each ASDIR #1 misc This patient is new to me today: No Emergency Visit: Yes ED Registration Date: 11/24/17 Care time: The patient presented to the Emergency Department on the above date and was hospitalized for further evaluation of their emergent condition. Critical Care patient: No - Discharge Referral Referred to [facility] No
--- NOTE | 2017-11-28 16:22 | PATH ---
Surgical Pathology Report Patient Name: HAO SCHMITZ Med. Rec. #: [id number] /Age/Gender: 1975 (Age: 42) / F Account: [id number] Location: [facility] MED/SURG Taken: 11/25/2017 Received: 11/25/2017 Reported: 11/28/2017 Physicians: Lisa Chavez M.D. Specimen(s) Received GALLBLADDER WITH ECTOPIC PIECE OF LIVER Clinical History Abdominal pain, vomiting Adenomyomatosis of gallbladder Final Diagnosis GALLBLADDER WITH ECTOPIC PIECE OF LIVER, CHOLECYSTECTOMY: CHRONIC CHOLECYSTITIS WITH ADENOMYOMATOSIS, CHOLELITHIASIS. PORTION OF LIVER WITH NO SIGNIFICANT PATHOLOGIC FINDINGS. ONE REACTIVE LYMPH NODE. Electronically Signed Umair Amaya M.D. Gross Description Received in formalin, labeled "gallbladder," is a 6.8 x 2.6 x 2.4 cm. gallbladder with a 0.2 cm. in length portion of cystic duct attached. There is a 1.0 cm in greatest dimension periductal lymph node present. There is a 1.5 x 1.1 x 0.4 cm nicole brown portion of liver attached to the outer surface of the gallbladder. The outer surface is nicole-pink and varies from smooth to shaggy. The lumen contains green, tenacious bile as well as abundant black, irregular to fragmented choleliths ranging from 0.1-0.4 cm in greatest dimension. The mucosa is nicole with gold cholesterol stippling. The wall of the gallbladder is thickened with abundant submucosal cystic spaces and averages 0.4 cm. in thickness. Test Design Engineer sections are submitted in 3 cassettes as follows: 1-lymph node and attached liver; 2-cystic duct margin and claims customer service representative gallbladder; 3-additional claims customer service representative gallbladder. /11/25/2017 saudi11/25/2017
--- NOTE | 2017-12-03 08:37 | OP ---
DATE OF OPERATION: 11/25/2017 PREOPERATIVE DIAGNOSIS: Adenomatosis of the gallbladder. POSTOPERATIVE DIAGNOSIS: Adenomatosis of the gallbladder. PROCEDURE: Laparoscopic cholecystectomy. ATTENDING SURGEON: Kenneth Pierre MD SLEEVE SEPARATOR: Randy Sesay MD ANESTHESIOLOGIST: Sara Schwartz MD ANESTHESIA TYPE: General with local, local consisting of 0.25% Marcaine, a total of 20 mL given at the port sites. ESTIMATED BLOOD LOSS: 5 mL. INTRAVENOUS FLUID ADMINISTERED: Crystalloid, 600 mL. DRAINS: None. SPECIMENS: Gallbladder with piece of ectopic liver. BRIEF FINDINGS: Patient had a gallbladder, which was noted to be distended with a piece of ectopic liver lobe overlying the gallbladder. A critical view was identified. All counts were taken. Piece of ectopic liver and gallbladder were taken en bloc. INDICATIONS: The patient is a 42-year-old female with adenomatosis of the gallbladder identified on imaging. She was counseled regarding risks, benefits, and alternatives of cholecystectomy. She signed informed consent and was taken to procedure. DESCRIPTION OF PROCEDURE: The patient was brought to the operating room, placed in supine position on the operating table with the right arm tucked and the left arm extended 90 degrees perpendicular to the bodys axis. The lower extremities had SCDs placed to compression. She was induced with general anesthesia, endotracheally intubated by Anesthesia without incident. She received intravenous antibiotics prior to the start of surgery. We proceeded with the anterior abdominal wall sterile prep and drape blocking the upper abdomen at the umbilicus. We scribed a Bacilio entry port. After a formal time-out was completed, identifying the operative site and procedure with all parties in agreement, we began with first a 15 blade to incise the Bacilio entry port. It was deepened and widened through subcutaneous tissue with Bovie cautery to the anterior fascia of the midline of the rectus. This fascia was elevated into the field and then opened, and a blunt entry was made into the abdomen. A digit was used to clear the abdominal viscera from any adhesions that would be present, and a 12-mm Bacilio port was then installed into the abdomen, and pneumoperitoneum was established to 15 mmHg. At which point, we inserted the laparoscope and took a look to see if there was any trauma at the entry site. There appeared to be none. A cursory inspection of the remainder of the abdominal viscera revealed no abnormal pathology. The gallbladder was identified at the livers edge. Additional trocar sites were installed at the xiphoid and 2 in the right abdomen under direct visualization. At which point, we then proceeded with retraction of the gallbladder cranially and towards the left shoulder at the dome. The infundibulum was then identified. At which point, we began to grasp it and develop a plane between the cystic structures. The cystic duct and cystic artery were isolated and a critical view was established. At which point, we began then to select 5-mm clips to transect the structures. Two clips were placed toward the patient and one towards the specimen side, and then, they were transected with EndoShears. The gallbladder was then removed in its entirety from the bed of the liver using Bovie cautery along its length with care taken not to violate the wall of the gallbladder itself. The gallbladder once removed from the liver was retrieved from the umbilical port after resighting the camera to the subxiphoid position. This was done under direct visualization, and once the gallbladder had been retrieved, the pneumoperitoneum was reestablished, and the liver bed was inspected. Hemostasis was obtained using Bovie cautery, while using the L-Hook. Finally, the trocars were removed under direct visualization after suctioning a small amount of bloody effluent and ascites from the abdomen. Adherent to the gallbladder appeared to be a piece of ectopic liver. The specimen was sent en bloc for pathologic diagnosis. There were no additional findings. Counts were correct. The port site was closed with 0 Vicryl using a figure-of-8 at the umbilicus, and the skin was closed with 4-0 Vicryl at all port sites with a subcuticular closure. The skin was cleaned, sterile dressings were placed. The patient was awoken from general anesthesia having tolerated the procedure well. She was given instructions to follow up in a period of 1 week. MD OMAR Chavez/[id number]
== END 2017-11-28 15:46 | disposition home or self-care (01) | DRG 263 ==
LOC: EDBD 14:21 → JER 14:21 → JERBED 23:41 → J8W 11-23 03:11 → OBSVTOIN 11-24 13:53
PROVIDERS: ADMIT Internal Medicine; ATTEND Internal Medicine
PROC: 0FB04ZX Excision of Liver, Percutaneous Endoscopic Approach, Diagnostic (ICD-10-PCS; 2017-11-25)
PROC: 0FT44ZZ Resection of Gallbladder, Percutaneous Endoscopic Approach (ICD-10-PCS; principal; 2017-11-25 11:00)
DX: K80.10 Calculus of gallbladder with chronic cholecystitis without obstruction (principal); D25.9 Leiomyoma of uterus, unspecified; R74.0 Nonspecific elevation of levels of transaminase and lactic acid dehydrogenase [LDH]; E87.6 Hypokalemia; K59.00 Constipation, unspecified; K21.9 Gastro-esophageal reflux disease without esophagitis; K82.8 Other specified diseases of gallbladder; N80.0 Endometriosis of uterus; F12.90 Cannabis use, unspecified, uncomplicated; G43.A0 Cyclical vomiting, in migraine, not intractable; T40.7X5A Adverse effect of cannabis (derivatives), initial encounter; D50.0 Iron deficiency anemia secondary to blood loss (chronic); D13.5 Benign neoplasm of extrahepatic bile ducts
CPT/HCPCS: 36415; 74177-TC; 74183-TC; 76705-TC; 76830-TC; 78226-TC; 80048; 80053; 80076; 80307; 81003; 81015; 82272; 82607; 82728; 82746; 82962; 83540; 83550; 83615; 83690; 83735; 84100; 84703; 85025; 85027; 85610; 85730; 86850; 86900; 86901; 87040; 87491; 87591; 88305-TC; 93005; 93010; 94760; 99283-25; A9537; G0378; J0131; J7030

== ENCOUNTER 2018-08-02 08:10 | Inpatient (IN) | payer OTHER ==
[2018-08-02] MEDS ORDERED: MAG HYDROX/AL HYDROX/SIMETH 30 ML UNIT-DOSE CUP PO ONE (09:07)
[2018-08-02] MEDS ORDERED: SODIUM CHLORIDE 1,000 ML IV STA ×2 (09:07→17:34)
[2018-08-02] MEDS ORDERED: ONDANSETRON 4 MG/2 ML VIAL IVPUSH ONE (09:07)
[2018-08-02] MEDS ORDERED: FAMOTIDINE 20 MG/50 ML IVPB 20 MG/50 ML MG IVPB ONE ×2 (09:07→09:57)
--- NOTE | 2018-08-02 09:12 | PDOC ---
*Physical Exam - Vital Signs Last Vital Signs Temp Pulse Resp BP Pulse Ox 98.4 F 102 H 22 H 133/84 100 08/02/18 08:26 08/02/18 08:26 08/02/18 08:26 08/02/18 08:26 08/02/18 08:26 - Physical Exam Comments: 08/02/18 09:11 The patient was examined by [JARVIS Xiong] under my direct supervision. I personally evaluated the patient. I concur with the above findings and the plan of care. ED Treatment Course - LABORATORY CBC & Chemistry Diagram: 08/04/18 07:05 08/03/18 07:05 *DC/Admit/Observation/Transfer Diagnosis at time of Disposition: Abdominal pain, Nausea and vomiting, Anemia, BRBPR (bright red blood per rectum ) - Discharge Dispostion Condition at time of disposition: Fair - Referrals - Patient Instructions - Post Discharge Activity
[2018-08-02] MEDS ORDERED: MAG HYDROX/AL HYDROX/SIMETH 30 ML UNIT-DOSE CUP ONE (09:57)
[2018-08-02] MEDS ORDERED: ONDANSETRON 4 MG/2 ML VIAL ONE (09:57)
[2018-08-02 10:07] LABS: BASO % 0.6 % (0-2.0); EOS % 0.2 % (0-4.5); HEMATOCRIT 26.5 % (32.4-45.2); HEMOGLOBIN 7.8 GM/dL (10.7-15.3); LYMPH % 19.2 % (8-40); MCHC 29.5 g/dl (32.0-36.0); MEAN CELL VOLUME 64.1 fl (80-96); MEAN PLT VOLUME 8.1 fl (7.5-11.1); MONO % 4.4 % (3.8-10.2); NEUT % 75.6 % (42.8-82.8); PLATELET COUNT 376 K/MM3 (134-434); RBC 4.14 M/mm3 (3.60-5.2); RDW 18.5 % (11.6-15.6); WHITE BLOOD COUNT 4.4 K/mm3 (4.0-10.0)
[2018-08-02 10:11] LABS: MCH 18.9 pg (25.7-33.7)
--- NOTE | 2018-08-02 10:50 | PDOC ---
History of Present Illness - General Chief Complaint: Nausea/Vomiting Stated Complaint: RECTAL BLEEDING,VOMITING Time Seen by Provider: 08/02/18 09:05 History Source: Patient - History of Present Illness Timing/Duration: reports: constant Quality: reports: severe Past History - Past Medical History Allergies/Adverse Reactions: Allergies Allergy/AdvReac Type Severity Reaction Status Date / Time Penicillins Allergy Verified 08/02/18 08:17 Home Medications: Ambulatory Orders Ciprofloxacin HCl [Cipro] 500 mg PO Q12H 08/02/18 Promethazine HCl 25 mg PO Q6H PRN 08/02/18 Promethazine HCl 25 mg RC Q6H PRN 08/02/18 metroNIDAZOLE [Flagyl -] 500 mg PO Q8H 08/02/18 COPD: No GI Disorders: Yes (colitis) - Surgical History Cholecystectomy: Yes - Suicide/Smoking/Psychosocial Hx Smoking History: Never smoked Have you smoked in the past 12 months: No Information on smoking cessation initiated: No Hx Alcohol Use: No Drug/Substance Use Hx: Yes Substance Use Type: Marijuana Hx Substance Use Treatment: No Review of Systems - Review of Systems Constitutional: No: Chills, Fever, Weakness ABD/GI: Yes: Blood Streaked Bowels, Diarrhea, Nausea, Vomiting, Abdominal cramping. No: Tarry Stools : No: Dysuria *Physical Exam - Vital Signs Last Vital Signs Temp Pulse Resp BP Pulse Ox 98.4 F 102 H 22 H 133/84 100 08/02/18 08:26 08/02/18 08:26 08/02/18 08:26 08/02/18 08:26 08/02/18 08:26 - Physical Exam General Appearance: Yes: Appropriately Dressed, Mild Distress HEENT: positive: Normal Voice Neck: positive: Supple Respiratory/Chest: positive: Lungs Clear, Normal Breath Sounds. negative: Respiratory Distress Cardiovascular: positive: Regular Rate, S1, S2 Gastrointestinal/Abdominal: positive: Normal Bowel Sounds, Tender, Soft. negative: Distended, Guarding, Rebound Musculoskeletal: negative: CVA Tenderness Integumentary: positive: Dry, Warm Neurologic: positive: Fully Oriented, Alert, Normal Mood/Affect ED Treatment Course - LABORATORY CBC & Chemistry Diagram: 08/02/18 09:10 08/02/18 09:10 - ADDITIONAL ORDERS Additional order review: 08/02/18 09:10 RBC 4.14 MCV 64.1 L MCHC 29.5 L RDW 18.5 H MPV 8.1 Neutrophils % 75.6 D Lymphocytes % 19.2 D Monocytes % 4.4 Eosinophils % 0.2 Basophils % 0.6 - RADIOLOGY Radiology Studies Ordered: Category Date Time Status ABDOMEN & PELVIS CT WITH CONTR [CT] Stat CT Scan 08/02/18 09:07 Ordered - Medications Given in the ED: ED Medications Discontinued Medications Generic Name Dose Route Start Last Admin Trade Name Delma PRN Reason Stop Dose Admin Al Hydroxide/Mg Hydroxide 30 ml 08/02/18 09:07 08/02/18 10:00 Mylanta Oral Suspension - PO 08/02/18 09:08 30 ml ONCE ONE Administration Famotidine/Sodium Chloride 20 mg in 50 mls @ 100 mls/hr 08/02/18 09:07 10:00 Pepcid 20 Mg Premixed Ivpb - IVPB 08/02/18 09:36 100 mls/hr ONCE ONE Administration Sodium Chloride 1,000 mls @ 1,000 mls/hr 08/02/18 09:07 08/02/18 10:24 Normal Saline - IV 08/02/18 10:06 1,000 mls/hr ASDIR STA Administration Ondansetron HCl 4 mg 08/02/18 09:07 08/02/18 10:00 Zofran Injection IVPUSH 08/02/18 09:08 4 mg ONCE ONE Administration Medical Decision Making - Medical Decision Making 08/02/18 10:45 43-year-old female, gastric ulcer > 5 years ago, s/p lap olivier 11/2017 at [facility], anemia (non-compliant w/ iron-no h/o transfusion), here with nausea, vomiting and upper abdominal pain. Patient states about 3 weeks ago while vacationing in [place], she developed symptoms. Was seen in ED in [place] and given probiotics but states sxs persisted so went back to ED > 1 week ago and diagnosed with colitis on CT and given Cipro and Flagyl which she took for only 6 days per patient because sxs re-occurred and was no longer able to grazyna meds. Also c/o of intermittent BRB mixed in with stool x 2 days. Denies weakness, dizziness, fever or chills See exam Persisted N/V/D BRB x 2 days Dx w/ colitis on CT > 1 week ago in [place] Did not complete full dose of cipro/flagyl given recurrent sxs Tachy to 102 here w/ poorly localized ttp to upper abd -pain control -zofran -IVF -labs -CT -dispo pending 08/02/18 14:21 08/02/18 16:47 CT read as no definite enterocolitis. There is mild dilatation of CBD to 0.7cm, ?post surgical change per radiology. WBC and LFTs wnl but pt severely anemic to 7.8. Of note, Hgb 8-9 upon discharge s/p lap olivier 11/2017. Patient reports that she was started on iron but non-compliant secondary to constipation. Will c /w GI at this time and admit per d/w ED attg 08/02/18 17:38 Case d/w Dr Mijares of GI, states mild CBD dilatation most likely post surgical change. Agrees to admit pt for further w/u including egd/colonoscopy. *DC/Admit/Observation/Transfer Diagnosis at time of Disposition: BRBPR (bright red blood per rectum) Abdominal pain Qualifiers: Abdominal location: upper abdomen, unspecified Qualified Code(s): R10.10 - Upper abdominal pain, unspecified Nausea and vomiting Qualifiers: Vomiting type: unspecified Vomiting Intractability: non-intractable Qualified Code(s): R11.2 - Nausea with vomiting, unspecified Anemia Qualifiers: Anemia type: unspecified type Qualified Code(s): D64.9 - Anemia, unspecified - Discharge Dispostion Condition at time of disposition: Fair Decision to Admit order: Yes - Referrals - Patient Instructions - Post Discharge Activity
[2018-08-02 10:57] LABS: PH,URINE 5.5 (5.0-8.0); URINE APPEARANCE CLEAR; URINE BILIRUBIN NEGATIVE (NEGATIVE); URINE COLOR YELLOW; URINE GLUCOSE (UA) NEGATIVE (NEGATIVE); URINE KETONE TRACE (NEGATIVE); URINE LEUK ESTERASE NEGATIVE (NEGATIVE); URINE NITRITE NEGATIVE (NEGATIVE); URINE PROTEIN NEGATIVE (NEGATIVE); URINE UROBILINOGEN 0.2 mg/dL (0.2-1.0)
[2018-08-02] MEDS ORDERED: KETOROLAC TROMETHAMINE 30 MG/1 ML VIAL IVPUSH ONE (12:18)
[2018-08-02 12:19] LABS: CALCIUM 8.8 mg/dL (8.5-10.1); CREATININE 0.6 mg/dL (0.55-1.3); POTASSIUM 3.7 mmol/L (3.5-5.1)
[2018-08-02 12:20] LABS: ALBUMIN 3.7 g/dl (3.4-5.0); BILIRUBIN,TOTAL 0.5 mg/dL (0.2-1); TOT PROT 7.7 g/dl (6.4-8.2)
[2018-08-02] MEDS ORDERED: KETOROLAC TROMETHAMINE 30 MG/1 ML VIAL ONE (13:08)
[2018-08-02 15:16] LABS: ANISOCYTOSIS 2+; MACROCYTOSIS 0; OVALOCYTE 1+; PLATELET ESTIMATE NORMAL
[2018-08-02] MEDS ORDERED: PANTOPRAZOLE SODIUM 40 MG VIAL IVPUSH ONE (17:22)
[2018-08-02] MEDS ORDERED: morphine CARPU-JECT 4 MG/1 ML DISP.SYRIN IVPUSH ONE (17:22)
[2018-08-02] MEDS ORDERED: PANTOPRAZOLE SODIUM 40 MG/100 ML BAG IVPB ONE (17:25)
[2018-08-02] MEDS ORDERED: morphine SULFATE 4 MG/ML VIAL ONE (17:25)
[2018-08-02 20:54] LABS: INR 1.11 (0.83-1.09); PROTHROMBIN TIME (PATIENT) 13.1 SEC (9.7-13.0)
--- NOTE | 2018-08-02 21:13 | HP ---
Admitting History and Physical - Primary Care Physician PCP: Osiris Fishman - Admission History of Present Illness: 43-year-old female, gastric ulcer > 5 years ago, s/p lap olivier 11/2017 at [facility], anemia (non-compliant w/ iron-no h/o transfusion), here with nausea, vomiting and upper abdominal pain. Patient states about 3 weeks ago while vacationing in [place], she developed symptoms. Was seen in ED in [place] and given probiotics but states sxs persisted so went back to ED > 1 week ago and diagnosed with colitis on CT and given Cipro and Flagyl which she took for only 6 days per patient because sxs re-occurred and was no longer able to grazyna meds. Also c/o of intermittent BRB mixed in with stool x 2 days. Denies weakness, dizziness, fever or chills - Past Medical History Heme/Onc: Yes: Anemia - Past Surgical History Past Surgical History: Yes: Cholecystectomy - Smoking History Smoking history: Never smoked Have you smoked in the past 12 months: No - Alcohol/Substance Use Hx Alcohol Use: No - Social History History of Recent Travel: No Home Medications - Allergies Allergies/Adverse Reactions: Allergies Allergy/AdvReac Type Severity Reaction Status Date / Time Penicillins Allergy Verified 08/02/18 08:17 - Home Medications Home Medications: Ambulatory Orders Ciprofloxacin HCl [Cipro] 500 mg PO Q12H 08/02/18 Promethazine HCl 25 mg PO Q6H PRN 08/02/18 Promethazine HCl 25 mg RC Q6H PRN 08/02/18 metroNIDAZOLE [Flagyl -] 500 mg PO Q8H 08/02/18 Physical Examination Vital Signs: Vital Signs Temperature 98.1 F 08/02/18 17:30 Pulse Rate 98 H 08/02/18 17:30 Respiratory Rate 18 08/02/18 17:30 Blood Pressure 129/83 08/02/18 17:30 O2 Sat by Pulse Oximetry (%) 99 08/02/18 17:30 Constitutional: Yes: Anxious HENT: Yes: Atraumatic Neck: Yes: Supple Cardiovascular: Yes: Regular Rate and Rhythm Respiratory: Yes: CTA Bilaterally Gastrointestinal: Yes: Normal Bowel Sounds, Tenderness (lower abdomen more on R side) Extremities: Yes: WNL Neurological: Yes: Alert, Oriented Labs: CBC, BMP 08/02/18 09:10 08/02/18 09:10 Imaging - Results Cat Scan: Report Reviewed Problem List - Problems (1) Abdominal pain Assessment/Plan: prn pain meds npo ivf ct scan reviewed... Code(s): R10.9 - UNSPECIFIED ABDOMINAL PAIN Qualifiers: Abdominal location: upper abdomen, unspecified Qualified Code(s): R10.10 - Upper abdominal pain, unspecified (2) Anemia Assessment/Plan: will get hematology consult need blood transfusion h/o fibroids Code(s): D64.9 - ANEMIA, UNSPECIFIED Qualifiers: Anemia type: unspecified type Qualified Code(s): D64.9 - Anemia, unspecified (3) Nausea and vomiting Assessment/Plan: prn zofran Code(s): R11.2 - NAUSEA WITH VOMITING, UNSPECIFIED Qualifiers: Vomiting type: unspecified Vomiting Intractability: non-intractable Qualified Code(s): R11.2 - Nausea with vomiting, unspecified (4) GERD (gastroesophageal reflux disease) Code(s): K21.9 - GASTRO-ESOPHAGEAL REFLUX DISEASE WITHOUT ESOPHAGITIS Qualifiers: Assessment/Plan Laboratory Tests 08/02/18 08/02/18 08/02/18 09:10 09:10 09:10 WBC 4.4 RBC 4.14 Hgb 7.8 L Hct 26.5 L MCV 64.1 L MCH 18.9 L D MCHC 29.5 L RDW 18.5 H Plt Count 376 D MPV 8.1 Absolute Neuts (auto) 3.4 Neutrophils % 75.6 D Lymphocytes % 19.2 D Monocytes % 4.4 Eosinophils % 0.2 Basophils % 0.6 Nucleated RBC % 0 Hypochromia 1+ Platelet Estimate Normal Polychromasia 0 Poikilocytosis 2+ Anisocytosis 2+ Microcytosis 2+ Macrocytosis 0 Ovalocytes 1+ Schistocytes 1+ PT with INR INR Sodium 136 Potassium 3.7 Chloride 103 Carbon Dioxide 25 Anion Gap 8 BUN 7 Creatinine 0.6 Est GFR (CKD-EPI)AfAm 130.30 Est GFR (CKD-EPI)NonAf 112.42 Random Glucose 92 Calcium 8.8 Total Bilirubin 0.5 AST 14 L ALT 16 Alkaline Phosphatase 57 Total Protein 7.7 Albumin 3.7 Lipase 117 Serum , Qual Negative Urine Color Urine Appearance Urine pH Ur Specific [place] Urine Protein Urine Glucose (UA) Urine Ketones Urine Blood Urine Nitrite Urine Bilirubin Urine Urobilinogen Ur Leukocyte Esterase 08/02/18 08/02/18 10:14 20:30 WBC RBC Hgb Hct MCV MCH MCHC RDW Plt Count MPV Absolute Neuts (auto) Neutrophils % Lymphocytes % Monocytes % Eosinophils % Basophils % Nucleated RBC % Hypochromia Platelet Estimate Polychromasia Poikilocytosis Anisocytosis Microcytosis Macrocytosis Ovalocytes Schistocytes PT with INR 13.10 H INR 1.11 H Sodium Potassium Chloride Carbon Dioxide Anion Gap BUN Creatinine Est GFR (CKD-EPI)AfAm Est GFR (CKD-EPI)NonAf Random Glucose Calcium Total Bilirubin AST ALT Alkaline Phosphatase Total Protein Albumin Lipase Serum , Qual Urine Color Yellow Urine Appearance Clear Urine pH 5.5 Ur Specific [place] 1.009 L Urine Protein Negative Urine Glucose (UA) Negative Urine Ketones Trace H Urine Blood Negative Urine Nitrite Negative Urine Bilirubin Negative Urine Urobilinogen 0.2 Ur Leukocyte Esterase Negative Active Medications Generic Name Dose Route Start Last Admin Trade Name Freq PRN Reason Stop Dose Admin Sodium Chloride 1,000 mls @ 100 mls/hr 08/02/18 21:15 Normal Saline - IV ASDIR KAREEM Morphine Sulfate 2 mg 08/02/18 21:11 Morphine Sulfate IVPUSH Q4H PRN PAIN LEVEL 4 - 6 Ondansetron HCl 4 mg 08/02/18 21:11 Zofran Injection IVPB Q4H PRN NAUSEA AND/OR VOMITING Pantoprazole Sodium 40 mg 08/03/18 10:00 Protonix Iv IVPUSH DAILY [facility]
[2018-08-02] MEDS: SODIUM CHLORIDE 1,000 ML IV SCH (22:35)
[2018-08-03 01:11] VITALS: BMI 23.0
[2018-08-03] MEDS: MORPHINE SULFATE 2 MG/ML VIAL IVPUSH PRN ×2 (04:17→16:04)
[2018-08-03] MEDS: ONDANSETRON 4 MG/2 ML VIAL IVPUSH PRN (07:19)
[2018-08-03 08:08] LABS: HEMATOCRIT 22.1 % (32.4-45.2); MCHC 29.9 g/dl (32.0-36.0); MEAN CELL VOLUME 64.2 fl (80-96); PLATELET COUNT 285 K/MM3 (134-434); RBC 3.44 M/mm3 (3.60-5.2); RDW 18.5 % (11.6-15.6); WHITE BLOOD COUNT 3.8 K/mm3 (4.0-10.0)
[2018-08-03 08:09] LABS: BASO % 0.7 % (0-2.0); EOS % 0.6 % (0-4.5); LYMPH % 29.7 % (8-40); MONO % 5.3 % (3.8-10.2); NEUT % 63.7 % (42.8-82.8)
[2018-08-03 08:31] LABS: ALBUMIN 2.9 g/dl (3.4-5.0); BILIRUBIN,TOTAL 0.4 mg/dL (0.2-1); CALCIUM 7.2 mg/dL (8.5-10.1); CREATININE 0.5 mg/dL (0.55-1.3); POTASSIUM 3.5 mmol/L (3.5-5.1)
[2018-08-03 08:46] LABS: MCH 19.2 pg (25.7-33.7)
[2018-08-03 08:52] LABS: HEMOGLOBIN 6.6 GM/dL (10.7-15.3)
[2018-08-03] MEDS: PANTOPRAZOLE SODIUM 40 MG VIAL IVPUSH SCH (11:08)
--- NOTE | 2018-08-03 11:32 | CON.ID ---
Consult Consult Specialty:: infectious diseases Referred by:: Dr Newell Reason for Consultation:: abd pain,vomiting - Past Surgical History Past Surgical History: Yes: Cholecystectomy - Alcohol/Substance Use Hx Alcohol Use: No - Smoking History Smoking history: Never smoked Have you smoked in the past 12 months: No - Social History History of Recent Travel: No Home Medications - Allergies Allergies/Adverse Reactions: Allergies Allergy/AdvReac Type Severity Reaction Status Date / Time Penicillins Allergy Verified 08/02/18 08:17 - Home Medications Home Medications: Ambulatory Orders Ciprofloxacin HCl [Cipro] 500 mg PO Q12H 08/02/18 Promethazine HCl 25 mg PO Q6H PRN 08/02/18 Promethazine HCl 25 mg RC Q6H PRN 08/02/18 metroNIDAZOLE [Flagyl -] 500 mg PO Q8H 08/02/18 Physical Exam Vital Signs: Vital Signs Temperature 97.7 F 08/03/18 06:43 Pulse Rate 67 08/03/18 06:43 Respiratory Rate 20 08/03/18 06:43 Blood Pressure 156/91 08/03/18 06:43 O2 Sat by Pulse Oximetry (%) 97 08/03/18 04:00 Labs: CBC, BMP 08/03/18 07:05 08/03/18 07:05
--- NOTE | 2018-08-03 15:12 | PN ---
Progress Note, Physician History of Present Illness: tolerating clear liquid diet - Current Medication List Current Medications: Active Medications Sodium Chloride (Normal Saline -) 1,000 mls @ 100 mls/hr IV ASDIR [facility] Last Admin: 08/02/18 22:35 Dose: 100 mls/hr Morphine Sulfate (Morphine Sulfate) 2 mg IVPUSH Q4H PRN PRN Reason: PAIN LEVEL 4 - 6 Last Admin: 08/03/18 04:17 Dose: 2 mg Ondansetron HCl (Zofran Injection) 4 mg IVPUSH Q4H PRN PRN Reason: NAUSEA AND/OR VOMITING Last Admin: 08/03/18 07:19 Dose: 4 mg Pantoprazole Sodium (Protonix Iv) 40 mg IVPUSH DAILY [facility] Last Admin: 08/03/18 11:08 Dose: 40 mg - Objective Vital Signs: Vital Signs Temperature 99 F 08/03/18 10:00 Pulse Rate 76 08/03/18 10:00 Respiratory Rate 18 08/03/18 10:00 Blood Pressure 121/82 08/03/18 10:00 O2 Sat by Pulse Oximetry (%) 97 08/03/18 09:00 Constitutional: Yes: No Distress HENT: Yes: Atraumatic Neck: Yes: Supple Cardiovascular: Yes: Regular Rate and Rhythm Respiratory: Yes: CTA Bilaterally Gastrointestinal: Yes: Normal Bowel Sounds Extremities: Yes: WNL Neurological: Yes: Alert, Oriented Labs: CBC, BMP 08/03/18 07:05 08/03/18 07:05 INR, PTT INR 1.11 (0.83-1.09) H 08/02/18 20:30 Problem List - Problems (1) Abdominal pain Assessment/Plan: prn pain meds on clear liquid diet ct scan reviewed... for egd and colonoscopy per gi Code(s): R10.9 - UNSPECIFIED ABDOMINAL PAIN Qualifiers: Abdominal location: upper abdomen, unspecified Qualified Code(s): R10.10 - Upper abdominal pain, unspecified (2) Anemia Assessment/Plan: getting blood transfusion Code(s): D64.9 - ANEMIA, UNSPECIFIED Qualifiers: Anemia type: unspecified type Qualified Code(s): D64.9 - Anemia, unspecified (3) Nausea and vomiting Assessment/Plan: prn zofran resolved Code(s): R11.2 - NAUSEA WITH VOMITING, UNSPECIFIED Qualifiers: Vomiting type: unspecified Vomiting Intractability: non-intractable Qualified Code(s): R11.2 - Nausea with vomiting, unspecified (4) GERD (gastroesophageal reflux disease) Code(s): K21.9 - GASTRO-ESOPHAGEAL REFLUX DISEASE WITHOUT ESOPHAGITIS Qualifiers:
--- NOTE | 2018-08-03 15:14 | CONSULT ---
Consultation: REQUESTING PROVIDER: CONSULT REQUEST: We have been asked to medically evaluate this patient for microcytic anemia . HISTORY OF PRESENT ILLNESS: This is a 43 yo F with pmh of gastric ulcer > 5 years ago, s/p lap olivier 11/2017 , anemia (non-compliant w/ iron-no h/o transfusion)(per emr has hx of heavy menstrual cycles, fibroids and Fe deficiency), presenting with n/v/epigastric pain x 3w. was in ED in [place] 1 w ago with similar abd pain and hematochezia, was diagnosed with colitis on CT and treated with Cipro/Flagyl (did not complete course). reports intermittent hematochezia x 2d. Admitted here for further gi workup. Heme consulted for microcytic anemia hgb 7.8 on admission dropped to 6.6. baseline hgb around 9. no platelet elevation. MCV disproportionately low. CT ap no evidence of colitis. Pateint resting in bed w/o complaints at this time. no BM since tuesday. denies n/v. no more bleeding. states her menstrual cycle just started. reports being noncompliant with Fe supplements because of constipation,a lso attributes recent 20 lb weigh gain due to increased hunger to Fe supplements. has never had a mammogram. no family history of CA. past smoker 10 pack years REVIEW OF SYSTEMS: CONSTITUTIONAL: Absent: fever, chills HEENT: Absent: rhinorrhea, nasal congestion, throat pain CARDIOVASCULAR: Absent: chest pain, syncope, palpitations, irregular heart rate, lightheadedness , peripheral edema RESPIRATORY: Absent: cough, shortness of breath, dyspnea with exertion, orthopnea, wheezing, stridor, hemoptysis GASTROINTESTINAL: Absent: nausea, vomiting GENITOURINARY: Absent: dysuria,hematuria MUSCULOSKELETAL: Absent: myalgia, arthralgia SKIN: Absent: rash, itching, pallor HEMATOLOGIC/IMMUNOLOGIC: Absent: easy bleeding, easy bruising ENDOCRINE: Absent: unexplained weight loss NEUROLOGIC: Absent: headache, focal weakness or paresthesias PSYCHIATRIC: Absent: anxiety, depression PHYSICAL EXAMINATION Vital Signs - 24 hr 08/02/18 08/02/18 08/03/18 17:30 22:30 00:34 Temperature 98.1 F 98.2 F Pulse Rate 102 H Pulse Rate [ 98 H 104 H Radial] Respiratory 18 18 18 Rate Blood Pressure 139/88 Blood Pressure 129/83 146/93 [Right Arm] O2 Sat by Pulse 99 100 97 Oximetry (%) 08/03/18 08/03/18 08/03/18 04:00 04:08 06:43 Temperature 97.9 F 97.7 F Pulse Rate 103 H 67 Pulse Rate [ Radial] Respiratory 20 20 Rate Blood Pressure 149/87 156/91 Blood Pressure [Right Arm] O2 Sat by Pulse 97 Oximetry (%) 08/03/18 08/03/18 09:00 10:00 Temperature 99 F Pulse Rate 76 Pulse Rate [ Radial] Respiratory 18 18 Rate Blood Pressure 121/82 Blood Pressure [Right Arm] O2 Sat by Pulse 97 Oximetry (%) GENERAL: Awake, alert, and fully oriented, in no acute distress. HEAD: Normal with no signs of trauma. EYES: Pupils equal, round and reactive to light, extraocular movements intact, sclera anicteric, conjunctiva clear. No lid lag. EARS, NOSE, THROAT: Moist mucous membranes. NECK: Nsupple without lymphadenopathy or masses. LUNGS: Breath sounds equal, clear to auscultation bilaterally. HEART: Regular rate and rhythm, normal S1 and S2 without murmur, rub or gallop. ABDOMEN: Soft, nontender, not distended, normoactive bowel sounds, no guarding, no rebound, no masses. breasts: no lesions or mass, no axillary or supraclavicular adenopathy Laboratory Results - last 24 hr 08/02/18 08/02/18 08/02/18 09:10 09:10 20:30 WBC RBC Hgb Hct MCV MCH MCHC RDW Plt Count MPV Absolute Neuts (auto) Neutrophils % Lymphocytes % Monocytes % Eosinophils % Basophils % Nucleated RBC % Hypochromia 1+ Platelet Estimate Normal Polychromasia 0 Poikilocytosis 2+ Anisocytosis 2+ Microcytosis 2+ Macrocytosis 0 Ovalocytes 1+ Schistocytes 1+ PT with INR 13.10 H INR 1.11 H Sodium 136 Potassium 3.7 Chloride 103 Carbon Dioxide 25 Anion Gap 8 BUN 7 Creatinine 0.6 Est GFR (CKD-EPI)AfAm 130.30 Est GFR (CKD-EPI)NonAf 112.42 Random Glucose 92 Calcium 8.8 Total Bilirubin 0.5 AST 14 L ALT 16 Alkaline Phosphatase 57 Total Protein 7.7 Albumin 3.7 Lipase 117 Blood Type Antibody Screen 08/02/18 08/03/1808/03/19 20:30 07:05 07:05 WBC 3.8 L RBC 3.44 L Hgb 6.6 L* Hct 22.1 L D MCV 64.2 L MCH 19.2 L MCHC 29.9 L RDW 18.5 H Plt Count 285 D MPV 8.0 Absolute Neuts (auto) 2.4 Neutrophils % 63.7 Lymphocytes % 29.7 D Monocytes % 5.3 Eosinophils % 0.6 D Basophils % 0.7 Nucleated RBC % 0 Hypochromia Platelet Estimate Polychromasia Poikilocytosis Anisocytosis Microcytosis Macrocytosis Ovalocytes Schistocytes PT with INR INR Sodium 139 Potassium 3.5 Chloride 110 H Carbon Dioxide 20 L Anion Gap 9 BUN 5 L Creatinine 0.5 L Est GFR (CKD-EPI)AfAm 138.36 Est GFR (CKD-EPI)NonAf 119.38 Random Glucose 75 Calcium 7.2 L Total Bilirubin 0.4 AST 76 H ALT 65 H Alkaline Phosphatase 65 Total Protein 6.0 L Albumin 2.9 L Lipase Blood Type B POSITIVE Antibody Screen Negative Active Medications Generic Name Dose Route Start Last Admin Trade Name Freq PRN Reason Stop Dose Admin Sodium Chloride 1,000 mls @ 100 mls/hr 08/02/18 21:15 08/02/18 22:35 Normal Saline - IV 100 mls/hr ASDIR KAREEM Administration Morphine Sulfate 2 mg 08/02/18 21:11 08/03/18 04:17 Morphine Sulfate IVPUSH 2 mg Q4H PRN Administration PAIN LEVEL 4 - 6 Ondansetron HCl 4 mg 08/02/18 21:11 08/03/18 07:19 Zofran Injection IVPUSH 4 mg Q4H PRN Administration NAUSEA AND/OR VOMITING Pantoprazole Sodium 40 mg 08/03/18 10:00 08/03/18 11:08 Protonix Iv IVPUSH 40 mg DAILY KAREEM Administration ASSESSMENT/PLAN: This is a 43 yo F with pmh of gastric ulcer > 5 years ago, s/p lap olivier 11/2017 , anemia (non-compliant w/ iron-no h/o transfusion)(per emr has hx of heavy menstrual cycles, fibroids and Fe deficiency), presenting with n/v/epigastric pain x 3w. was in ED in [place] 1 w ago and was diagnosed with colitis on CT and treated with Cipro/Flagyl. reports intermittent hematochezia x 2d. Admitted here for further gi workup. Heme consulted for microcytic anemia hgb 7.8 on admission dropped to 6.6. baseline hgb around 9. no platelet elevation. CT ap no evidence of colitis. Microcytic anemia uterine fibroids epigastric abdominal pain hematochezia colitis -ct ap reviewed, may be resolving colitis -transfuse 1 u prbc for hgb >7 goal -f/u fe studies, b12, folate, hapto, retic, ldh, tfts -f/u hgb electrophoresis r/o thalassemia (very low mcv). if that is negative will order alpha thalassemia pcr due to high suspicion. Dispo: We will continue to follow the patient. Thank you for this consultative opportunity. Problem List - Problems (1) Abdominal pain Code(s): R10.9 - UNSPECIFIED ABDOMINAL PAIN Qualifiers: Abdominal location: upper abdomen, unspecified Qualified Code(s): R10.10 - Upper abdominal pain, unspecified (2) Anemia Code(s): D64.9 - ANEMIA, UNSPECIFIED Qualifiers: Anemia type: unspecified type Qualified Code(s): D64.9 - Anemia, unspecified (3) Nausea & vomiting Code(s): R11.2 - NAUSEA WITH VOMITING, UNSPECIFIED Visit type - Emergency Visit Emergency Visit: Yes ED Registration Date: 08/02/18 Care time: The patient presented to the Emergency Department on the above date and was hospitalized for further evaluation of their emergent condition. - New Patient This patient is new to me today: Yes Date on this admission: 08/03/18 - Critical Care Critical Care patient: No
--- NOTE | 2018-08-03 16:31 | CON.GI ---
Consult Consult Specialty:: GI Referred by:: Dr. Fishman Reason for Consultation:: Anemia, abdominal pain - History of Present Illness Chief Complaint: Anemia and abdominal pain History of Present Illness: 43F admitted through [facility] ER for evaluation of abdominal pain, nausea/vomiting and abdominal pain. Asked to evaluate anemia. She has had a microcytic anemia from from 11/22. She denies overt rectal bleeding. She denies diarrhea except after admission. Prior to that she had a soft bowel movement tuesday. She also alludes to being in ED in [place] recently, being told of colitis and being treated with cirpo and flagyl. She denies melena or frequent NSAID use. Iron indices in 11/22 were low. She has never had an upper endoscopy or colonoscopy. She smokes marijuana regularly. There is no family history of colorectal cancer or other GI malignancy. There is no family history of IBD/Celiac disease. There is no family history of liver disease. She is to receive a PRBC transfusion today. CT scan failed to reveal colitis and CBD was mildly dilated. 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 Place of : [facility] History of Recent Travel: No Home Medications - Allergies Allergies/Adverse Reactions: Allergies Allergy/AdvReac Type Severity Reaction Status Date / Time Penicillins Allergy Verified 08/02/18 08:17 - Home Medications Home Medications: Ambulatory Orders Ciprofloxacin HCl [Cipro] 500 mg PO Q12H 08/02/18 Promethazine HCl 25 mg PO Q6H PRN 08/02/18 Promethazine HCl 25 mg RC Q6H PRN 08/02/18 metroNIDAZOLE [Flagyl -] 500 mg PO Q8H 08/02/18 Family Disease History - Family Disease History Family Disease History: Other: Father (Alive: glaucoma), Mother (Alive: gallstones), Sister (4, healthy), Son (1, healthy), Daughter (1, healthy) Other Family History: No famlly history of colorectal cancer, IBD, celiac disease, anemia Review of Systems - Review of Systems Constitutional: denies: Fever, Unintentional Wgt. Loss Cardiovascular: denies: Chest Pain Respiratory: denies: SOB Gastrointestinal: reports: Abdominal Pain, Diarrhea, Nausea, Vomiting. denies: Constipation, Melena, Rectal Bleeding Physical Exam-GI Vital Signs: Vital Signs Temperature 99 F 08/03/18 10:00 Pulse Rate 76 08/03/18 10:00 Respiratory Rate 18 08/03/18 10:00 Blood Pressure 121/82 08/03/18 10:00 O2 Sat by Pulse Oximetry (%) 97 08/03/18 09:00 Constitutional: Yes: Calm Eyes: No: Sclera Icterus Cardiovascular: Yes: Regular Rate and Rhythm. No: Murmur Respiratory: Yes: CTA Bilaterally Gastrointestinal Inspection: No: Distention ...Auscultate: Yes: Normoactive Bowel Sounds ...Palpate: Yes: Soft. No: Hepatomegaly, Splenomegaly, Tenderness ...Percussion: No: Tympanitic ...Rectal Exam: Yes: Other (Store Gift Wrap Associate present: No external lesions, no masses, scant light brown stool in the rectal vault, guaiac negative.) Edema: No (No LE edema) Neurological: Yes: Alert Labs: CBC, BMP 08/03/18 07:05 08/03/18 07:05 INR, PTT INR 1.11 (0.83-1.09) H 08/02/18 20:30 Hepatic Panel Total Bilirubin 0.4 mg/dL (0.2-1) 08/03/18 07:05 AST 76 U/L (15-37) H 08/03/18 07:05 ALT 65 U/L (13-61) H 08/03/18 07:05 Alkaline Phosphatase 65 U/L (45-117) 08/03/18 07:05 Albumin 2.9 g/dl (3.4-5.0) L 08/03/18 07:05 Imaging - Results Cat Scan: Report Reviewed, Image Reviewed Problem List - Problems (1) Nausea & vomiting Assessment/Plan: No vomiting currently. No focal findings on abdominal exam Advance to clears Advised avoidance of marijuana as this can lead to cyclic vomiting (patient states that it has been making her feel worse of late anyways) EGD for further intraluminal evaluation. Discussed potential risks of the procedure like but not limited to bleeding, perofration requiring surgery to repair, infection and sedation medication effects all of which could be potentially life threatening. She has agreed to the procedure. Code(s): R11.2 - NAUSEA WITH VOMITING, UNSPECIFIED (2) Anemia Assessment/Plan: Only overt bleeding described is menstrual in nature. She also states being told of fibroids. Heme evaluating For PRBC transfusion Ordered celiac serologies Consider live source operator evaluation EGD followed by colonoscopy as described above Code(s): D64.9 - ANEMIA, UNSPECIFIED Qualifiers: Anemia type: unspecified type Qualified Code(s): D64.9 - Anemia, unspecified (3) Elevated transaminase level Assessment/Plan: Normal on admission ? medication related Ordered screening hepatitis serologies CBD mildly dilated, however LFT pattern not obstructive/cholestatic and the patient is s/p cholecystectomy. Suspect that this is contributing to the CBD dilation. Monitor LFTs Avoid hepatotoxic agents Code(s): R74.0 - NONSPEC ELEV OF LEVELS OF TRANSAMNS & LACTIC ACID DEHYDRGNSE
[2018-08-04] MEDS: SODIUM CHLORIDE 1,000 ML IV SCH ×2 (00:32→22:24)
[2018-08-04] MEDS ORDERED: IBUPROFEN 600 MG TABLET (FP) PO ONE (01:00)
[2018-08-04] MEDS: ONDANSETRON 4 MG/2 ML VIAL IVPUSH PRN ×2 (03:47→08:30)
[2018-08-04 07:45] LABS: BASO % 0.5 % (0-2.0); EOS % 1.2 % (0-4.5); MCH 20.5 pg (25.7-33.7); MCHC 30.9 g/dl (32.0-36.0); MEAN CELL VOLUME 66.2 fl (80-96); MEAN PLT VOLUME 8.5 fl (7.5-11.1); NEUT % 65.3 % (42.8-82.8); PLATELET COUNT 357 K/MM3 (134-434); RBC 4.38 M/mm3 (3.60-5.2); RDW 21.2 % (11.6-15.6); WHITE BLOOD COUNT 4.4 K/mm3 (4.0-10.0)
[2018-08-04] MEDS: PANTOPRAZOLE SODIUM 40 MG VIAL IVPUSH SCH (09:47)
[2018-08-04 10:03] LABS: ALBUMIN 3.8 g/dl (3.4-5.0); BILIRUBIN,DIRECT 0.2 mg/dL (0.0-0.2); BILIRUBIN,TOTAL 0.7 mg/dL (0.2-1); TOT PROT 7.6 g/dl (6.4-8.2)
--- NOTE | 2018-08-04 12:00 | PN ---
Progress Note, Physician History of Present Illness: says she is doing better dirrhoea improving abd pain better - Current Medication List Current Medications: Active Medications Acetaminophen (Tylenol -) 650 mg PO Q4H PRN PRN Reason: HEADACHE Sodium Chloride (Normal Saline -) 1,000 mls @ 100 mls/hr IV ASDIR [facility] Last Admin: 08/04/18 00:32 Dose: Not Given Morphine Sulfate (Morphine Sulfate) 1 mg IVPUSH Q4H PRN PRN Reason: PAIN LEVEL 4 - 6 Ondansetron HCl (Zofran Injection) 4 mg IVPUSH Q4H PRN PRN Reason: NAUSEA AND/OR VOMITING Last Admin: 08/04/18 08:30 Dose: 4 mg Pantoprazole Sodium (Protonix Iv) 40 mg IVPUSH DAILY [facility] Last Admin: 08/04/18 09:47 Dose: 40 mg - Objective Vital Signs: Vital Signs Temperature 98.9 F 08/04/18 06:00 Pulse Rate 100 H 08/04/18 06:00 Respiratory Rate 08/03/18 22:00 Blood Pressure 125/66 08/04/18 06:00 O2 Sat by Pulse Oximetry (%) 98 08/03/18 21:00 Constitutional: Yes: No Distress, Calm Cardiovascular: Yes: Regular Rate and Rhythm Respiratory: Yes: Regular, CTA Bilaterally Gastrointestinal: Yes: Normal Bowel Sounds, Soft Musculoskeletal: Yes: WNL Extremities: Yes: WNL Neurological: Yes: Alert, Oriented Psychiatric: Yes: Alert, Oriented Labs: CBC, BMP 08/04/18 07:05 08/03/18 07:05 INR, PTT INR 1.11 (0.83-1.09) H 08/02/18 20:30 Assessment/Plan Problem List - Problems (1) Abdominal pain Code(s): R10.9 - UNSPECIFIED ABDOMINAL PAIN Qualifiers: Abdominal location: upper abdomen, unspecified Qualified Code(s): R10.10 - Upper abdominal pain, unspecified (2) Anemia Code(s): D64.9 - ANEMIA, UNSPECIFIED Qualifiers: Anemia type: unspecified type Qualified Code(s): D64.9 - Anemia, unspecified (3) Nausea and vomiting Code(s): R11.2 - NAUSEA WITH VOMITING, UNSPECIFIED Qualifiers: Vomiting type: unspecified Vomiting Intractability: non-intractable Qualified Code(s): R11.2 - Nausea with vomiting, unspecified (4) GERD (gastroesophageal reflux disease) Code(s): K21.9 - GASTRO-ESOPHAGEAL REFLUX DISEASE WITHOUT ESOPHAGITIS Qualifiers: plan continue current mgmt gi on case rest as per the team and gi
[2018-08-04] MEDS ORDERED: MIDAZOLAM HCL 2 MG/2 ML SINGLE DOSE VIAL ONE (14:06)
--- NOTE | 2018-08-04 14:24 | PN ---
Progress Note (short form) - Note Progress Note: EGD complete. report placed in procedural section of the physical chart and will be scanned into [employer] Problem List - Problems (1) Nausea & vomiting Code(s): R11.2 - NAUSEA WITH VOMITING, UNSPECIFIED (2) Anemia Code(s): D64.9 - ANEMIA, UNSPECIFIED Qualifiers: Anemia type: unspecified type Qualified Code(s): D64.9 - Anemia, unspecified (3) Elevated transaminase level Code(s): R74.0 - NONSPEC ELEV OF LEVELS OF TRANSAMNS & LACTIC ACID DEHYDRGNSE
--- NOTE | 2018-08-04 15:33 | PN ---
Physical Exam: SUBJECTIVE: Patient seen and examined resting in bed nad, no acute events. afebrile hemodynamically stable. no bm, no melena no hematochezia denies abd pain OBJECTIVE: Vital Signs Period Temp Pulse Resp BP Sys/Meléndez Pulse Ox Last 24 Hr 98.1 F-98.9 F 71-100 16-24 110-155/66-85 98-100 GENERAL: Awake, alert, and fully oriented, in no acute distress. HEAD: Normal with no signs of trauma. EYES: Pupils equal, round and reactive to light, extraocular movements intact, sclera anicteric, conjunctiva clear. No lid lag. EARS, NOSE, THROAT: Moist mucous membranes. NECK: Nsupple without lymphadenopathy or masses. LUNGS: Breath sounds equal, clear to auscultation bilaterally. HEART: Regular rate and rhythm, normal S1 and S2 without murmur, rub or gallop. ABDOMEN: Soft, nontender, not distended, normoactive bowel sounds, no guarding, no rebound, no masses. Laboratory Results - last 24 hr 08/02/18 08/04/18 08/04/18 20:30 07:05 07:05 WBC RBC Hgb Hct MCV MCH MCHC RDW Plt Count MPV Absolute Neuts (auto) Neutrophils % Lymphocytes % Monocytes % Eosinophils % Basophils % Nucleated RBC % Retic Count 1.43 Ferritin 7.2 L Total Bilirubin 0.7 Direct Bilirubin 0.2 AST 36 ALT 56 Alkaline Phosphatase 64 LD Total 172 Total Protein 7.6 Albumin 3.8 Vitamin B12 Serum Folate 23 H TSH 2.21 Free T4 1.26 Blood Type B POSITIVE Antibody Screen Negative Crossmatch See Detail 08/04/18 08/04/18 07:05 07:05 WBC 4.4 RBC 4.38 Hgb 9.0 L Hct 29.0 L D MCV 66.2 L MCH 20.5 L MCHC 30.9 L RDW 21.2 H Plt Count 357 D MPV 8.5 Absolute Neuts (auto) 2.9 Neutrophils % 65.3 Lymphocytes % 25.0 Monocytes % 8.0 Eosinophils % 1.2 D Basophils % 0.5 Nucleated RBC % 0 Retic Count Ferritin Total Bilirubin Direct Bilirubin AST ALT Alkaline Phosphatase LD Total Total Protein Albumin Vitamin B12 999 H Serum Folate TSH Free T4 Blood Type Antibody Screen Crossmatch Active Medications Generic Name Dose Route Start Last Admin Trade Name Freq PRN Reason Stop Dose Admin Acetaminophen 650 mg 08/04/18 01:10 Tylenol - PO Q4H PRN HEADACHE Sodium Chloride 1,000 mls @ 100 mls/hr 08/02/18 21:15 08/04/18 00:32 Normal Saline - IV Not Given ASDIR KAREEM Morphine Sulfate 1 mg 08/03/18 18:54 Morphine Sulfate IVPUSH Q4H PRN PAIN LEVEL 4 - 6 Ondansetron HCl 4 mg 08/02/18 21:11 08/04/18 08:30 Zofran Injection IVPUSH 4 mg Q4H PRN Administration NAUSEA AND/OR VOMITING ASSESSMENT/PLAN: This is a 43 yo F with pmh of gastric ulcer > 5 years ago, s/p lap olivier 11/2017 , anemia (non-compliant w/ iron-no h/o transfusion)(per emr has hx of heavy menstrual cycles, fibroids and Fe deficiency), presenting with n/v/epigastric pain x 3w. was in ED in [place] 1 w ago and was diagnosed with colitis on CT and treated with Cipro/Flagyl. reports intermittent hematochezia x 2d. Admitted here for further gi workup. Heme consulted for microcytic anemia hgb 7.8 on admission dropped to 6.6. baseline hgb around 9. no platelet elevation. CT ap no evidence of colitis. Microcytic anemia uterine fibroids epigastric abdominal pain hematochezia colitis -ct ap reviewed, may be resolving colitis -hgb 9 s/p 1 u prbc -b12, folate wnl -f/u fe studies, hapto, retic, ldh, tfts -f/u hgb electrophoresis r/o thalassemia (very low mcv). if that is negative will order alpha thalassemia pcr due to high suspicion. -f/u celiac w/u Dispo: We will continue to follow the patient. Thank you for this consultative opportunity. Problem List - Problems (1) Abdominal pain Code(s): R10.9 - UNSPECIFIED ABDOMINAL PAIN Qualifiers: Abdominal location: upper abdomen, unspecified Qualified Code(s): R10.10 - Upper abdominal pain, unspecified (2) Anemia Code(s): D64.9 - ANEMIA, UNSPECIFIED Qualifiers: Anemia type: unspecified type Qualified Code(s): D64.9 - Anemia, unspecified (3) Nausea & vomiting Code(s): R11.2 - NAUSEA WITH VOMITING, UNSPECIFIED Visit type - Emergency Visit Emergency Visit: Yes ED Registration Date: 08/02/18 Care time: The patient presented to the Emergency Department on the above date and was hospitalized for further evaluation of their emergent condition. - New Patient This patient is new to me today: No - Critical Care Critical Care patient: No - Discharge Referral Referred to [facility] Med P.C.: No
--- NOTE | 2018-08-04 16:23 | PN ---
Teaching Attending Note Name of Resident: Lindsey Higginbotham ATTENDING PHYSICIAN STATEMENT I saw and evaluated the patient. I reviewed the resident's note and discussed the case with the resident. I agree with the resident's findings and plan as documented. SUBJECTIVE: Patient seen and examined Presented with GI distress and hypo/micro anemia Ferritin low at 7.2 Episode of "colitis" described in [place] by CT imaging associated with BRB/ rectum Menarche age 12, monthly periods x 3-4 days with heavy flow and with clots. May take 3-4 advil daily with menses. Currently menstruating Surgical history : x 2 ' Cholecystectomy one year earlier at which time patient took Fe+ + pills briefly, but this was discontinued because of constipation x 2 Family Hx: Father -sarcoma Mother - hypothyroid Ethnic background - [place]- [place] ROS positive for GERD; severe cramps with menstruation; lower extremity cramps Last Vital Signs Temp Pulse Resp BP Pulse Ox 98.4 F 71 16 138/84 100 08/04/18 14:24 08/04/18 14:56 08/04/18 14:56 08/04/18 14:56 08/04/18 14:56 HEENT: LADARIUS, EOM Intact Oropharynx: No thrush, No mucositis Neck: Supple Nodes: Without adenopathy Breasts: Without masses Cor: RSR, systolic murmur, No gallops Lungs: Clear to P&A Abd: Soft, Normal bowel sounds, No organomegaly Ext:No significant edema Skin: No rashes, Integument intact CBC, BMP 08/04/18 07:05 08/03/18 07:05 Impression: Iron deficiency --ferritin 7.2 Heavy menses with clots 3-4 days per cycle each month. Recent episode of Blood per rectum in [place] Takes advil -up to 4 tabs/day with menses for cramps Had short trial of iron tablets post cholecystectomy in past-unable to tolerate. Celiac work up pending Upper endoscopy -non revealing Colonoscopy to be performed Elevated RBC count in face of severe hypo/micro indices suggests component of thalassemia-await hb Electrophoresis May require parenteral Fe++ therapy if intolerant of oral iron.
[2018-08-04] MEDS: ACETAMINOPHEN 325 MG TABLET (FP) PO PRN (18:37)
--- NOTE | 2018-08-04 18:41 | PN ---
Progress Note, Physician History of Present Illness: having periods - Current Medication List Current Medications: Active Medications Acetaminophen (Tylenol -) 650 mg PO Q4H PRN PRN Reason: HEADACHE Bisacodyl (Dulcolax -) 20 mg PO ONCE ONE Stop: 08/06/18 13:01 Sodium Chloride (Normal Saline -) 1,000 mls @ 100 mls/hr IV ASDIR KARE[facility] Last Admin: 08/04/18 00:32 Dose: Not Given Morphine Sulfate (Morphine Sulfate) 1 mg IVPUSH Q4H PRN PRN Reason: PAIN LEVEL 4 - 6 Ondansetron HCl (Zofran Injection) 4 mg IVPUSH Q4H PRN PRN Reason: NAUSEA AND/OR VOMITING Last Admin: 08/04/18 08:30 Dose: 4 mg Polyethylene Glycol (Miralax (For Bowel Prep) -) 255 gm PO ONCE ONE Stop: 08/06/18 14:01 - Objective Vital Signs: Vital Signs Temperature 98.6 F 08/04/18 15:20 Pulse Rate 73 08/04/18 15:20 Respiratory Rate 18 08/04/18 15:20 Blood Pressure 135/87 08/04/18 15:20 O2 Sat by Pulse Oximetry (%) 100 08/04/18 14:56 Constitutional: Yes: No Distress HENT: Yes: Atraumatic Neck: Yes: Supple Cardiovascular: Yes: Regular Rate and Rhythm Respiratory: Yes: CTA Bilaterally Gastrointestinal: Yes: Normal Bowel Sounds Extremities: Yes: WNL Edema: No Peripheral Pulses WNL: Yes Neurological: Yes: Alert, Oriented Labs: CBC, BMP 08/04/18 07:05 08/03/18 07:05 INR, PTT INR 1.11 (0.83-1.09) H 08/02/18 20:30 Problem List - Problems (1) Abdominal pain Assessment/Plan: has period cramps Code(s): R10.9 - UNSPECIFIED ABDOMINAL PAIN Qualifiers: Abdominal location: upper abdomen, unspecified Qualified Code(s): R10.10 - Upper abdominal pain, unspecified (2) Anemia Assessment/Plan: h/h stable Code(s): D64.9 - ANEMIA, UNSPECIFIED Qualifiers: Anemia type: unspecified type Qualified Code(s): D64.9 - Anemia, unspecified (3) Nausea and vomiting Assessment/Plan: resolved Code(s): R11.2 - NAUSEA WITH VOMITING, UNSPECIFIED Qualifiers: Vomiting type: unspecified Vomiting Intractability: non-intractable Qualified Code(s): R11.2 - Nausea with vomiting, unspecified (4) GERD (gastroesophageal reflux disease) Code(s): K21.9 - GASTRO-ESOPHAGEAL REFLUX DISEASE WITHOUT ESOPHAGITIS Qualifiers: Assessment/Plan for colonoscopy on tuesday wll get ell teacher consult
[2018-08-04] MEDS: MORPHINE SULFATE 2 MG/ML VIAL IVPUSH PRN (22:27)
[2018-08-05] MEDS: ONDANSETRON 4 MG/2 ML VIAL IVPUSH PRN (02:23)
[2018-08-05 04:10] LABS: HBSAG SCREEN Negative (Negative); HEP B CORE AB, TOT Negative (Negative); SERUM IRON SATURATION 4 % (15-55); TOTAL IRON BINDING CAPACITY 395 ug/dL (250-450); UIBC 379 ug/dL (131-425)
--- NOTE | 2018-08-05 09:37 | PN ---
Progress Note, Physician History of Present Illness: patient stable no new issus plan from gi - Current Medication List Current Medications: Active Medications Acetaminophen (Tylenol -) 650 mg PO Q4H PRN PRN Reason: HEADACHE Last Admin: 08/04/18 18:37 Dose: 650 mg Bisacodyl (Dulcolax -) 20 mg PO ONCE ONE Stop: 08/06/18 13:01 Sodium Chloride (Normal Saline -) 1,000 mls @ 100 mls/hr IV ASDIR KAREEM Last Admin: 08/04/18 22:24 Dose: 100 mls/hr Morphine Sulfate (Morphine Sulfate) 1 mg IVPUSH Q4H PRN PRN Reason: PAIN LEVEL 4 - 6 Last Admin: 08/04/18 22:27 Dose: 1 mg Ondansetron HCl (Zofran Injection) 4 mg IVPUSH Q4H PRN PRN Reason: NAUSEA AND/OR VOMITING Last Admin: 08/05/18 02:23 Dose: 4 mg Polyethylene Glycol (Miralax (For Bowel Prep) -) 255 gm PO ONCE ONE Stop: 08/06/18 14:01 - Objective Vital Signs: Vital Signs Temperature 98.4 F 08/05/18 06:00 Pulse Rate 97 H 08/05/18 06:00 Respiratory Rate 19 08/04/18 22:00 Blood Pressure 137/96 08/05/18 06:00 O2 Sat by Pulse Oximetry (%) 100 08/04/18 21:00 Constitutional: Yes: No Distress, Calm Cardiovascular: Yes: Regular Rate and Rhythm Gastrointestinal: Yes: Normal Bowel Sounds, Soft Musculoskeletal: Yes: WNL Extremities: Yes: WNL Neurological: Yes: Alert, Oriented Labs: CBC, BMP 08/04/18 07:05 08/03/18 07:05 INR, PTT INR 1.11 (0.83-1.09) H 08/02/18 20:30 Assessment/Plan Problem List - Problems (1) Abdominal pain Code(s): R10.9 - UNSPECIFIED ABDOMINAL PAIN Qualifiers: Abdominal location: upper abdomen, unspecified Qualified Code(s): R10.10 - Upper abdominal pain, unspecified (2) Anemia Code(s): D64.9 - ANEMIA, UNSPECIFIED Qualifiers: Anemia type: unspecified type Qualified Code(s): D64.9 - Anemia, unspecified (3) Nausea and vomiting Code(s): R11.2 - NAUSEA WITH VOMITING, UNSPECIFIED Qualifiers: Vomiting type: unspecified Vomiting Intractability: non-intractable Qualified Code(s): R11.2 - Nausea with vomiting, unspecified (4) GERD (gastroesophageal reflux disease) Code(s): K21.9 - GASTRO-ESOPHAGEAL REFLUX DISEASE WITHOUT ESOPHAGITIS Qualifiers: plan continue current mgmt gi on case rest as per the team and gi
--- NOTE | 2018-08-05 12:00 | PN ---
Progress Note, Physician - Current Medication List Current Medications: Active Medications Acetaminophen (Tylenol -) 650 mg PO Q4H PRN PRN Reason: HEADACHE Last Admin: 08/04/18 18:37 Dose: 650 mg Bisacodyl (Dulcolax -) 20 mg PO ONCE ONE Stop: 08/06/18 13:01 Sodium Chloride (Normal Saline -) 1,000 mls @ 100 mls/hr IV ASDIR KAREEM Last Admin: 08/04/18 22:24 Dose: 100 mls/hr Morphine Sulfate (Morphine Sulfate) 1 mg IVPUSH Q4H PRN PRN Reason: PAIN LEVEL 4 - 6 Last Admin: 08/04/18 22:27 Dose: 1 mg Ondansetron HCl (Zofran Injection) 4 mg IVPUSH Q4H PRN PRN Reason: NAUSEA AND/OR VOMITING Last Admin: 08/05/18 02:23 Dose: 4 mg Polyethylene Glycol (Miralax (For Bowel Prep) -) 255 gm PO ONCE ONE Stop: 08/06/18 14:01 - Objective Vital Signs: Vital Signs Temperature 98.9 F 08/05/18 09:41 Pulse Rate 78 08/05/18 09:41 Respiratory Rate 18 08/05/18 09:41 Blood Pressure 145/95 08/05/18 09:41 O2 Sat by Pulse Oximetry (%) 100 08/05/18 09:00 Constitutional: Yes: No Distress HENT: Yes: Atraumatic Neck: Yes: Supple Cardiovascular: Yes: Regular Rate and Rhythm Respiratory: Yes: CTA Bilaterally Gastrointestinal: Yes: Normal Bowel Sounds Extremities: Yes: WNL Neurological: Yes: Alert, Oriented Labs: CBC, BMP 08/04/18 07:05 08/03/18 07:05 INR, PTT INR 1.11 (0.83-1.09) H 08/02/18 20:30 Problem List - Problems (1) Abdominal pain Assessment/Plan: has period cramps Code(s): R10.9 - UNSPECIFIED ABDOMINAL PAIN Qualifiers: Abdominal location: upper abdomen, unspecified Qualified Code(s): R10.10 - Upper abdominal pain, unspecified (2) Anemia Assessment/Plan: h/h stable Code(s): D64.9 - ANEMIA, UNSPECIFIED Qualifiers: Anemia type: unspecified type Qualified Code(s): D64.9 - Anemia, unspecified (3) Nausea and vomiting Assessment/Plan: resolved Code(s): R11.2 - NAUSEA WITH VOMITING, UNSPECIFIED Qualifiers: Vomiting type: unspecified Vomiting Intractability: non-intractable Qualified Code(s): R11.2 - Nausea with vomiting, unspecified (4) GERD (gastroesophageal reflux disease) Code(s): K21.9 - GASTRO-ESOPHAGEAL REFLUX DISEASE WITHOUT ESOPHAGITIS Qualifiers: Assessment/Plan for colonoscopy on tuesday wll get skoog operator consult
[2018-08-05 19:08] LABS: GLIADIN ANTIBODY IGA 7 units (0-19); GLIADIN ANTIBODY IGG 3 units (0-19); TRANSGLUTAMINASE IGG 5 U/mL (0-5)
[2018-08-06] MEDS: MORPHINE SULFATE 2 MG/ML VIAL IVPUSH PRN (03:13)
[2018-08-06] MEDS: SODIUM CHLORIDE 1,000 ML IV SCH ×2 (03:13→21:36)
[2018-08-06] MEDS ORDERED: BISACODYL 5 MG TABLET.DR (FP) PO ONE (13:00)
[2018-08-06] MEDS: ACETAMINOPHEN 325 MG TABLET (FP) PO PRN ×2 (13:05→23:26)
--- NOTE | 2018-08-06 13:47 | PN ---
Progress Note, Physician - Current Medication List Current Medications: Active Medications Acetaminophen (Tylenol -) 650 mg PO Q4H PRN PRN Reason: HEADACHE Last Admin: 08/06/18 13:05 Dose: 650 mg Sodium Chloride (Normal Saline -) 1,000 mls @ 100 mls/hr IV ASDIR KAREEM Last Admin: 08/06/18 03:13 Dose: 100 mls/hr Morphine Sulfate (Morphine Sulfate) 1 mg IVPUSH Q4H PRN PRN Reason: PAIN LEVEL 4 - 6 Last Admin: 08/06/18 03:13 Dose: 1 mg Ondansetron HCl (Zofran Injection) 4 mg IVPUSH Q4H PRN PRN Reason: NAUSEA AND/OR VOMITING Last Admin: 08/05/18 02:23 Dose: 4 mg Polyethylene Glycol (Miralax (For Bowel Prep) -) 255 gm PO ONCE ONE Stop: 08/06/18 14:01 Last Admin: 08/06/18 13:44 Dose: 255 gm - Objective Vital Signs: Vital Signs Temperature 98.5 F 08/06/18 10:00 Pulse Rate 90 08/06/18 10:00 Respiratory Rate 20 08/06/18 10:00 Blood Pressure 142/92 08/06/18 10:00 O2 Sat by Pulse Oximetry (%) 98 08/06/18 09:00 Labs: CBC, BMP 08/04/18 07:05 08/03/18 07:05 INR, PTT INR 1.11 (0.83-1.09) H 08/02/18 20:30
[2018-08-06] MEDS ORDERED: POLYETHYLENE GLYCOL 3350 255 GM BTL PO ONE (14:00)
[2018-08-06] MEDS: ONDANSETRON 4 MG/2 ML VIAL IVPUSH PRN (14:38)
--- NOTE | 2018-08-06 22:47 | PN ---
Progress Note, Physician - Current Medication List Current Medications: Active Medications Acetaminophen (Tylenol -) 650 mg PO Q4H PRN PRN Reason: HEADACHE Last Admin: 08/06/18 13:05 Dose: 650 mg Sodium Chloride (Normal Saline -) 1,000 mls @ 100 mls/hr IV ASDIR KAREEM Last Admin: 08/06/18 21:36 Dose: 100 mls/hr Ondansetron HCl (Zofran Injection) 4 mg IVPUSH Q4H PRN PRN Reason: NAUSEA AND/OR VOMITING Last Admin: 08/06/18 14:38 Dose: 4 mg - Objective Vital Signs: Vital Signs Temperature 97.8 F 08/06/18 14:00 Pulse Rate 76 08/06/18 14:00 Respiratory Rate 18 08/06/18 14:00 Blood Pressure 134/84 08/06/18 14:00 O2 Sat by Pulse Oximetry (%) 98 08/06/18 09:00 Labs: CBC, BMP 08/04/18 07:05 08/03/18 07:05 INR, PTT INR 1.11 (0.83-1.09) H 08/02/18 20:30
[2018-08-07] MEDS: ONDANSETRON 4 MG/2 ML VIAL IVPUSH PRN (04:53)
[2018-08-07] MEDS: SODIUM CHLORIDE 1,000 ML IV SCH (05:56)
--- NOTE | 2018-08-07 11:01 | CONSULT ---
Consult - text type - Consultation Consultation Note: 43yo here with N/V, epigastric pain. Notes history of menorrhagia since menarche with regular cycles. Currently on cycle. Reported history of uterine fibroids, however, sonogram in system from 2018 showed no uterine fibroids, only suspicion for possible adenomyosis. Uterus only slighltly enlarged at 10cm. There is no new active BREAKER OFF issue that requires treatment at this very time. Patient can follow up as an outpatient once stable to establish grill cook care for further discussion of her issues and treatment if desired for possible adenomyosis. Deidra León MD
--- NOTE | 2018-08-07 13:59 | DS ---
Physical Examination Vital Signs: Vital Signs Temperature 98.3 F 08/07/18 09:06 Pulse Rate 74 08/07/18 09:06 Respiratory Rate 18 08/07/18 09:06 Blood Pressure 154/95 08/07/18 09:06 O2 Sat by Pulse Oximetry (%) 98 08/07/18 09:00 Constitutional: Yes: No Distress HENT: Yes: Atraumatic Neck: Yes: Supple Cardiovascular: Yes: Regular Rate and Rhythm Respiratory: Yes: CTA Bilaterally Gastrointestinal: Yes: Normal Bowel Sounds Extremities: Yes: WNL Edema: No Neurological: Yes: Alert, Oriented Labs: CBC, BMP 08/04/18 07:05 08/03/18 07:05 Discharge Summary Reason For Visit: ANEMIA, NAUSEA & VOMITING, ABD PAIN Current Active Problems Abdominal pain (Acute) Anemia (Acute) BRBPR (bright red blood per rectum) (Acute) Elevated transaminase level (Acute) Nausea & vomiting (Acute) Nausea and vomiting (Acute) Condition: Fair - Instructions Diet, Activity, Other Instructions: [facility] [place]. ,address:[address] [place] [address].Please follow up with MARKETING INFORMATION MANAGER regarding your periods. Referrals: Deidra León MD [Staff Physician] - Disposition: HOME - Home Medications Comprehensive Discharge Medication List: Ambulatory Orders Promethazine HCl 25 mg PO Q6H PRN 08/02/18 dc home no abx d/w id
--- NOTE | 2018-08-07 14:57 | PN ---
Progress Note (short form) - Note Progress Note: Colonoscopy performed today revealing normal appearing terminal ileum and colon. Biopsies taken. See scanned report for complete details.
[2018-08-07 16:36] VITALS: BP 148/86; PULSE 94; TEMP 98.7
[2018-08-07 18:23] LABS: MCH 20.4 pg (25.7-33.7); MCHC 30.8 g/dl (32.0-36.0); PLATELET COUNT 347 K/MM3 (134-434); RDW 22.4 % (11.6-15.6); WHITE BLOOD COUNT 4.3 K/mm3 (4.0-10.0)
[2018-08-08 11:18] LABS: HGB SOLUBILITY Negative (Negative); Hgb C 0 % (0.0); Hgb F 0 % (0.0-2.0); Hgb S 0 % (0.0)
--- NOTE | 2018-08-08 13:08 | PATH ---
Surgical Pathology Report Patient Name: HAO SCHMITZ [facility]. Rec. #: [id number] /Age/Gender: 1975 (Age: 43) / F Account: [id number] Location: [address] [place] [address] Taken: 08/04/2018 Received: 08/07/2018 Reported: 08/08/2018 Physicians: Sandie Aponte M.D. Specimen(s) Received A: DUODENUM B: ANTRUM AND BODY Clinical History Anemia, abdominal pain Postoperative diagnosis: Same Final Diagnosis A. DUODENUM, BIOPSY: DUODENAL MUCOSA WITHOUT SIGNIFICANT PATHOLOGIC FINDINGS. B. STOMACH, ANTRUM AND BODY, BIOPSY: GASTRIC ANTRAL AND BODY MUCOSA WITH MILD CHRONIC GASTRITIS. IMMUNOHISTOCHEMICAL STAIN FOR H. PYLORI IS NEGATIVE. Electronically Signed By Cass Roberts M.D. DOCTOR YOVANNY Gonzalez Gross Description A. Received in formalin, labeled "biopsy duodenum" are 5 nicole, irregular portions of soft tissue ranging from 0.2-0.3 cm. in greatest dimension. The specimens are submitted in toto in one cassette. B. Received in formalin, labeled "biopsy antrum and body" are 3 nicole, irregular portions of soft tissue ranging from 0.1-0.6 cm. in greatest dimension. The specimens are submitted in toto in one cassette. 08/07/2018 [facility]08/07/2018
--- NOTE | 2018-08-09 16:02 | PATH ---
Surgical Pathology Report Patient Name: HAO SCHMITZ [facility]. Rec. #: [id number] /Age/Gender: 1975 (Age: 43) / F Account: [id number] Location: [address] [place] [address] Taken: 08/07/2018 Received: 08/08/2018 Reported: 08/09/2018 Physicians: MD Osiris Haddad M.D. Specimen(s) Received A: ILEUM B: RIGHT COLON C: LEFT COLON Clinical History Anemia, abdominal pain Postoperative diagnosis: Normal colon Final Diagnosis A. ILEUM, BIOPSY: ILEAL MUCOSA WITHOUT SIGNIFICANT PATHOLOGIC FINDINGS. B. COLON, RIGHT, BIOPSY: COLONIC MUCOSA WITH SMALL LYMPHOID AGGREGATE. C. COLON, LEFT, BIOPSY: COLONIC MUCOSA WITH PROMINENT LYMPHOID AGGREGATES. Electronically Signed Cass Roberts M.D. Gross Description A. Received in formalin, labeled "biopsy ileum" are 2 nicole, irregular portions of soft tissue measuring 0.2 and 0.3 cm. in greatest dimension. The specimens are submitted in toto in one cassette. B. Received in formalin, labeled "biopsy right colon" are 3 nicole, irregular portions of soft tissue averaging 0.3 cm. in greatest dimension. The specimens are submitted in toto in one cassette. C. Received in formalin, labeled "biopsy left colon" are 4 nicole, irregular portions of soft tissue averaging 0.3 cm. in greatest dimension. The specimens are submitted in toto in one cassette. /08/08/2018 [place]08/08/2018
== END 2018-08-07 18:52 | disposition home or self-care (01) | DRG 253 ==
LOC: JER 08:10 → J6S 21:09
PROVIDERS: ADMIT Internal Medicine; ATTEND Internal Medicine
PROC: 30233N1 Transfusion of Nonautologous Red Blood Cells into Peripheral Vein, Percutaneous Approach (ICD-10-PCS; 2018-08-03)
PROC: 30233N1 Transfusion of Nonautologous Red Blood Cells into Peripheral Vein, Percutaneous Approach (ICD-10-PCS; 2018-08-03)
PROC: 0DD68ZX Extraction of Stomach, Via Natural or Artificial Opening Endoscopic, Diagnostic (ICD-10-PCS; principal; 2018-08-04 14:00)
PROC: 0DDB8ZX Extraction of Ileum, Via Natural or Artificial Opening Endoscopic, Diagnostic (ICD-10-PCS; 2018-08-07)
PROC: 0DDF8ZX Extraction of Right Large Intestine, Via Natural or Artificial Opening Endoscopic, Diagnostic (ICD-10-PCS; 2018-08-07)
PROC: 0DDG8ZX Extraction of Left Large Intestine, Via Natural or Artificial Opening Endoscopic, Diagnostic (ICD-10-PCS; 2018-08-07)
DX: K62.5 Hemorrhage of anus and rectum (principal); N92.0 Excessive and frequent menstruation with regular cycle; N80.0 Endometriosis of uterus; D50.9 Iron deficiency anemia, unspecified; D25.9 Leiomyoma of uterus, unspecified; F12.10 Cannabis abuse, uncomplicated; D56.9 Thalassemia, unspecified; K21.9 Gastro-esophageal reflux disease without esophagitis; R74.0 Nonspecific elevation of levels of transaminase and lactic acid dehydrogenase [LDH]; Z91.14 Patient's other noncompliance with medication regimen; Z87.11 Personal history of peptic ulcer disease; Z87.891 Personal history of nicotine dependence; K52.9 Noninfective gastroenteritis and colitis, unspecified
CPT/HCPCS: 36415; 36430; 74177-TC; 80053; 80076; 81003; 82607; 82728; 82746; 82784; 83010; 83021; 83516; 83540; 83550; 83615; 83690; 84439; 84443; 84466; 84703; 85025; 85027; 85044; 85610; 85660; 86704; 86706; 86708; 86803; 86850; 86900; 86901; 86922; 87045; 87046; 87177; 87209; 87324; 87340; 87449; 88305-TC; 99283-25; J7030; P9038; P9058; Q9967

== ENCOUNTER 2019-04-13 08:13 | Emergency (ER) | payer SELFPAY ==
[2019-04-13 08:21] VITALS: BMI 22.1
[2019-04-13] MEDS ORDERED: MAG HYDROX/AL HYDROX/SIMETH -MYLANTA- ORAL SUSPENSION PO ONE (08:57)
[2019-04-13] MEDS ORDERED: FAMOTIDINE 20 MG/50 ML IVPB 20 MG/50 ML MG IVPB ONE ×3 (08:57→09:43)
[2019-04-13] MEDS ORDERED: SODIUM CHLORIDE 1,000 ML IV STA (08:57)
[2019-04-13] MEDS ORDERED: ONDANSETRON 4 MG/2 ML VIAL IVPUSH ONE (08:57)
[2019-04-13] MEDS ORDERED: MAG HYDROX/AL HYDROX/SIMETH 30 ML UNIT-DOSE CUP ONE ×2 (09:41→09:43)
[2019-04-13] MEDS ORDERED: ONDANSETRON 4 MG/2 ML VIAL ONE ×2 (09:42→09:43)
--- NOTE | 2019-04-13 09:42 | PDOC ---
History of Present Illness - General Chief Complaint: Pain Stated Complaint: ABD PAIN Time Seen by Provider: 04/13/19 08:39 History Source: Patient - History of Present Illness Timing/Duration: reports: intermittent Quality: reports: moderate Abdominal Pain Onset Location: reports: epigastric Past History - Past Medical History Allergies/Adverse Reactions: Allergies Allergy/AdvReac Type Severity Reaction Status Date / Time Penicillins Allergy Verified 04/13/19 08:16 Home Medications: Ambulatory Orders Ciprofloxacin HCl [Cipro] 500 mg PO Q12H 08/02/18 Promethazine HCl 25 mg PO Q6H PRN 08/02/18 Promethazine HCl 25 mg RC Q6H PRN 08/02/18 metroNIDAZOLE [Flagyl -] 500 mg PO Q8H 08/02/18 Famotidine [Pepcid] 20 mg PO BID #14 tablet 04/13/19 Mag Hydrox/Al Hydrox/Simeth [Mylanta Suspension -] 30 ml PO Q6H #1 bottle Ondansetron HCl [Zofran] 4 mg PO Q8H PRN #12 tablet 04/13/19 Anemia: Yes COPD: No GI Disorders: Yes (colitis) - Surgical History Cholecystectomy: Yes - Immunization History Immunization Up to Date: Yes - Psycho Social/Smoking Cessation Hx Smoking History: Never smoked Have you smoked in the past 12 months: No Information on smoking cessation initiated: No Hx Alcohol Use: No Drug/Substance Use Hx: Yes ([facility]) Substance Use Type: Marijuana Hx Substance Use Treatment: No Review of Systems - Review of Systems Constitutional: No: Fever ABD/GI: Yes: Diarrhea, Nausea, Vomiting, Abdominal cramping. No: Blood Streaked Bowels : No: Dysuria, Flank Pain *Physical Exam - Vital Signs Last Vital Signs Temp Pulse Resp BP Pulse Ox 98.3 F 83 16 146/86 100 04/13/19 08:16 04/13/19 08:16 04/13/19 08:16 04/13/19 08:16 04/13/19 08:16 - Physical Exam General Appearance: Yes: Appropriately Dressed, Moderate Distress HEENT: positive: Normal Voice Neck: positive: Supple Respiratory/Chest: negative: Respiratory Distress Gastrointestinal/Abdominal: positive: Normal Bowel Sounds, Tender (to epigastrium), Soft. negative: Distended, Guarding, Rebound Musculoskeletal: negative: CVA Tenderness Integumentary: positive: Dry, Warm Neurologic: positive: Fully Oriented, Alert, Normal Mood/Affect ED Treatment Course - LABORATORY CBC & Chemistry Diagram: 04/13/19 09:24 04/13/19 09:24 Medical Decision Making - Medical Decision Making 04/13/19 09:37 44-year-old female s/p olivier 2 years ago, here with upper abdominal pain with intermittent nausea, vomiting and diarrhea x1 week. Pain possibly worse w/ food. No BRBPR, fever or chills. No recent travel or sick contacts. No excessive alcohol or NSAID use. States current symptoms similar to when she was diagnosed with colitis on CT while in [place] 1 year ago. see exam ? gastritis given hx, vs recurrent colitis vs AGE, s/p olivier remotely, unlikely pancreatitis, appy or UTI/pyelo -trial of GI cocktail -labs -?CT -reassess 04/13/19 11:51 Labs unremarkable. On reassessment, patient reports feeling significantly better. Able to tolerate p.o. Will dc with GI meds with return precautions given. To follow-up with GI Discharge - Discharge Information Problems reviewed: Yes Clinical Impression/Diagnosis: Upper abdominal pain Nausea and vomiting Qualifiers: Vomiting type: unspecified Vomiting Intractability: unspecified Qualified Code( s): R11.2 - Nausea with vomiting, unspecified Diarrhea Qualifiers: Diarrhea type: unspecified type Qualified Code(s): R19.7 - Diarrhea, unspecified Condition: Improved Disposition: HOME - Additional Discharge Information Prescriptions: Famotidine [Pepcid] 20 mg PO BID #14 tablet Mag Hydrox/Al Hydrox/Simeth [Mylanta Suspension -] 30 ml PO Q6H #1 bottle Ondansetron HCl [Zofran] 4 mg PO Q8H PRN #12 tablet PRN Reason: Nausea And/Or Vomiting - Follow up/Referral - Patient Discharge Instructions Patient Printed Discharge Instructions: Gastritis Additional Instructions: Take medications as prescribed and drink plenty of fluids If symptoms persist and or worsen, return to the ER Please call the number the back of your insurance card and get a list of GI referrals - Post Discharge Activity Work/Back to School Note: Back to Work
[2019-04-13 09:43] LABS: EOS % 1.2 % (0-4.5); HEMATOCRIT 36.4 % (32.4-45.2); HEMOGLOBIN 12.1 GM/dL (10.7-15.3); LYMPH % 35.6 % (8-40); MCH 30.3 pg (25.7-33.7); MCHC 33.3 g/dl (32.0-36.0); MEAN PLT VOLUME 8.3 fl (7.5-11.1); MONO % 5.8 % (3.8-10.2); NEUT % 56.4 % (42.8-82.8); PLATELET COUNT 312 K/MM3 (134-434); RBC 4.01 M/mm3 (3.60-5.2); RDW 14.1 % (11.6-15.6); WHITE BLOOD COUNT 4.5 K/mm3 (4.0-10.0)
[2019-04-13 10:04] LABS: ALBUMIN 3.9 g/dl (3.4-5.0); BILIRUBIN,TOTAL 0.2 mg/dL (0.2-1); BLOOD UREA NITROGEN 11.6 mg/dL (7-18); CREATININE 0.7 mg/dL (0.55-1.3); POTASSIUM 4.1 mmol/L (3.5-5.1); TOT PROT 7.7 g/dl (6.4-8.2)
[2019-04-13 10:39] LABS: PH,URINE 5.5 (5.0-8.0); URINE APPEARANCE CLEAR; URINE BILIRUBIN NEGATIVE (NEGATIVE); URINE COLOR YELLOW; URINE GLUCOSE (UA) NEGATIVE (NEGATIVE); URINE KETONE 2+ (NEGATIVE); URINE LEUK ESTERASE NEGATIVE (NEGATIVE); URINE NITRITE NEGATIVE (NEGATIVE); URINE PROTEIN NEGATIVE (NEGATIVE); URINE UROBILINOGEN 0.2 mg/dL (0.2-1.0)
[2019-04-13 12:14] VITALS: BP 138/78; PULSE 84; TEMP 98.2
== END 2019-04-13 12:12 | disposition home or self-care (01) ==
LOC: JER 08:13
PROC: 3E033GC Introduction of Other Therapeutic Substance into Peripheral Vein, Percutaneous Approach (ICD-10-PCS; principal; 2019-04-13)
DX: R11.2 Nausea with vomiting, unspecified (principal); R10.10 Upper abdominal pain, unspecified; R19.7 Diarrhea, unspecified
CPT/HCPCS: 36415; 80053; 81003; 83690; 84703; 85025; 99283-25; J7030

== ENCOUNTER 2020-07-30 12:49 | Emergency (ER) | payer OTHER ==
[2020-07-30 13:16] VITALS: BP 124/83; PULSE 91; TEMP 98.2; BMI 22.6
[2020-07-30] MEDS ORDERED: KETOROLAC TROMETHAMINE 60 MG/2 ML VIAL IM ONE (13:44)
[2020-07-30] MEDS ORDERED: KETOROLAC TROMETHAMINE 60 MG/2 ML VIAL ONE (13:46)
[2020-07-30] MEDS ORDERED: LIDOCAINE HCL 2% (20ML MULTI-DOSE VIAL) ONE (14:01)
[2020-07-30] MEDS ORDERED: CLINDAMYCIN HCL 300 MG CAPSULE PO ONE (14:35)
[2020-07-30] MEDS ORDERED: CLINDAMYCIN HCL 150 MG CAPSULE (FP) ONE (14:35)
[2020-07-30] MEDS ORDERED: DIPHTH,PERTUSS(ACELL),TET 0.5 ML DISP.SYRIN IM ONE ×2 (14:44→14:45)
== END 2020-07-30 14:54 | disposition home or self-care (01) ==
LOC: JER 12:49 → JERFT 12:49
PROC: 0HQMXZZ Repair Right Foot Skin, External Approach (ICD-10-PCS; principal; 2020-07-30)
PROC: 3E0234Z Introduction of Serum, Toxoid and Vaccine into Muscle, Percutaneous Approach (ICD-10-PCS; 2020-07-30)
PROC: 3E0233Z Introduction of Anti-inflammatory into Muscle, Percutaneous Approach (ICD-10-PCS; 2020-07-30)
DX: S91.204A Unspecified open wound of right lesser toe(s) with damage to nail, initial encounter (principal); S91.214A Laceration without foreign body of right lesser toe(s) with damage to nail, initial encounter
CPT/HCPCS: 73660-TC-FY; 90471; 90715; 99284-25

== ENCOUNTER 2020-09-10 09:42 | Emergency (ER) | payer OTHER ==
[2020-09-10 10:03] VITALS: TEMP 97.8; BMI 22.6
[2020-09-10] MEDS ORDERED: METOCLOPRAMIDE HCL INJECTION 10 MG/2 ML VIAL IVPUSH ONE (10:14)
[2020-09-10] MEDS ORDERED: morphine CARPU-JECT 4 MG/1 ML DISP.SYRIN IVPUSH ONE (10:14)
[2020-09-10] MEDS ORDERED: ONDANSETRON 4 MG/2 ML VIAL IVPUSH ONE (10:38)
[2020-09-10] MEDS ORDERED: morphine SULFATE 4 MG/ML VIAL ONE (10:47)
[2020-09-10] MEDS ORDERED: ONDANSETRON 4 MG/2 ML VIAL ONE (10:48)
[2020-09-10 10:58] LABS: BASO % 1.2 % (0-2.0); EOS % 0.4 % (0-4.5); HEMATOCRIT 42.7 % (32.4-45.2); HEMOGLOBIN 14.3 GM/dL (10.7-15.3); LYMPH % 30.5 % (8-40); MCH 31.8 pg (25.7-33.7); MCHC 33.6 g/dl (32.0-36.0); MEAN CELL VOLUME 94.8 fl (80-96); MEAN PLT VOLUME 8.5 fl (7.5-11.1); MONO % 5.8 % (3.8-10.2); NEUT % 62.1 % (42.8-82.8); PLATELET COUNT 251 10^3/uL (134-434); RBC 4.51 M/mm3 (3.60-5.2); RDW 13.1 % (11.6-15.6)
[2020-09-10] MEDS ORDERED: SODIUM CHLORIDE 1,000 ML IV SCH (11:00)
[2020-09-10 11:05] LABS: INR 1.01 (0.83-1.09); PROTHROMBIN TIME (PATIENT) 12.4 SEC (9.7-13.0)
[2020-09-10 11:08] LABS: ACTIVATED PTT 25.2 SECONDS (25.2-36.5)
[2020-09-10 11:19] LABS: EPI CELLS 32 /uL (0-25.1); HYALINE CASTS 2 /uL (0-3.1); PH,URINE 6.5 (5.0-8.0); URINE APPEARANCE CLEAR; URINE BACTERIA 222 /uL (0-1359); URINE BILIRUBIN NEGATIVE (NEGATIVE); URINE COLOR YELLOW; URINE GLUCOSE (UA) NEGATIVE (NEGATIVE); URINE KETONE 4+ (NEGATIVE); URINE LEUK ESTERASE NEGATIVE (NEGATIVE); URINE NITRITE NEGATIVE (NEGATIVE); URINE PROTEIN TRACE (NEGATIVE); URINE RBC 38 /uL (0-23.9); URINE WBC 9 /uL (0-25.8)
[2020-09-10 11:21] LABS: BLOOD UREA NITROGEN 6.4 mg/dL (7-18)
[2020-09-10 11:22] LABS: ALBUMIN 4.1 g/dl (3.4-5.0)
[2020-09-10 11:24] LABS: CREATININE 0.6 mg/dL (0.55-1.3)
[2020-09-10 11:26] LABS: BILIRUBIN,TOTAL 0.6 mg/dL (0.2-1); TOT PROT 8.2 g/dl (6.4-8.2)
[2020-09-10] MEDS ORDERED: FAMOTIDINE 20 MG/50 ML IVPB 20 MG/50 ML MG IVPB ONE ×2 (16:22→16:42)
[2020-09-10] MEDS ORDERED: MAG HYDROX/AL HYDROX/SIMETH 30 ML UNIT-DOSE CUP PO ONE (16:22)
[2020-09-10] MEDS ORDERED: MAG HYDROX/AL HYDROX/SIMETH 30 ML UNIT-DOSE CUP ONE (16:42)
[2020-09-10 17:26] VITALS: BP 154/98; PULSE 85
== END 2020-09-10 17:26 | disposition home or self-care (01) ==
LOC: JER 09:42
PROC: 3E033GC Introduction of Other Therapeutic Substance into Peripheral Vein, Percutaneous Approach (ICD-10-PCS; principal; 2020-09-10)
PROC: 3E033NZ Introduction of Analgesics, Hypnotics, Sedatives into Peripheral Vein, Percutaneous Approach (ICD-10-PCS; 2020-09-10)
PROC: 3E033GC Introduction of Other Therapeutic Substance into Peripheral Vein, Percutaneous Approach (ICD-10-PCS; 2020-09-10)
DX: R10.13 Epigastric pain (principal); R11.2 Nausea with vomiting, unspecified
CPT/HCPCS: 36415; 74177-TC; 80053; 81003; 83690; 84703; 85025; 85610; 85730; 93005; 93010; 99285-25; Q9967

== ENCOUNTER 2021-03-25 19:00 | Emergency (ER) | payer OTHER ==
[2021-03-25 19:19] VITALS: BP 128/82; PULSE 91; BMI 21.2
[2021-03-25] MEDS ORDERED: ACETAMINOPHEN 500 MG TABLET (FP) PO ONE (20:15)
[2021-03-25] MEDS ORDERED: diazePAM 5 MG TABLET PO ONE (20:15)
[2021-03-25] MEDS ORDERED: ACETAMINOPHEN 500 MG TABLET (FP) ONE (20:29)
[2021-03-25] MEDS ORDERED: diazePAM 5 MG TABLET ONE (20:29)
[2021-03-25 21:06] VITALS: TEMP 97.8
== END 2021-03-25 21:11 | disposition home or self-care (01) ==
LOC: JERFT 19:00
DX: M62.838 Other muscle spasm (principal); G44.209 Tension-type headache, unspecified, not intractable; F41.9 Anxiety disorder, unspecified
CPT/HCPCS: 99283-25

== ENCOUNTER 2021-11-20 08:39 | Emergency (ER) | payer OTHER ==
[2021-11-20 08:57] VITALS: BP 151/100; PULSE 91; RESP 22; TEMP 97.9; BMI 26.2
[2021-11-20 09:59] LABS: BASO % 1.1 % (0-2.0); EOS % 1.5 % (0-4.5); EPI CELLS 33 /uL (0-25.1); HEMATOCRIT 39.8 % (32.4-45.2); HEMOGLOBIN 13.6 GM/dL (10.7-15.3); HYALINE CASTS 1 /uL (0-3.1); LYMPH % 33.2 % (8-40); MCH 31.4 pg (25.7-33.7); MCHC 34.2 g/dl (32.0-36.0); MEAN CELL VOLUME 91.9 fl (80-96); MEAN PLT VOLUME 8.5 fl (7.5-11.1); MONO % 4.4 % (3.8-10.2); NEUT % 59.8 % (42.8-82.8); PH,URINE 5.5 (5.0-8.0); PLATELET COUNT 261 10^3/uL (134-434); RBC 4.33 M/mm3 (3.60-5.2); RDW 14.1 % (11.6-15.6); URINE APPEARANCE CLEAR; URINE BACTERIA 121 /uL (0-1359); URINE BILIRUBIN NEGATIVE (NEGATIVE); URINE COLOR YELLOW; URINE GLUCOSE (UA) NEGATIVE (NEGATIVE); URINE KETONE 1+ (NEGATIVE); URINE LEUK ESTERASE NEGATIVE (NEGATIVE); URINE NITRITE NEGATIVE (NEGATIVE); URINE PROTEIN NEGATIVE (NEGATIVE); URINE RBC 27 /uL (0-23.9); URINE UROBILINOGEN 0.2 mg/dL (0.2-1.0); URINE WBC 7 /uL (0-25.8); WHITE BLOOD COUNT 5.9 K/mm3 (4.0-10.0)
[2021-11-20 10:16] LABS: CALCIUM 8.7 mg/dL (8.5-10.1)
[2021-11-20 10:18] LABS: ALBUMIN 3.5 g/dl (3.4-5.0); BLOOD UREA NITROGEN 11.9 mg/dL (7-18); MAGNESIUM 1.9 mg/dL (1.8-2.4)
[2021-11-20 10:20] LABS: CREATININE 0.7 mg/dL (0.55-1.3)
[2021-11-20 10:23] LABS: BILIRUBIN,TOTAL 0.4 mg/dL (0.2-1); TOT PROT 7.7 g/dl (6.4-8.2)
== END 2021-11-20 11:24 | disposition home or self-care (01) ==
LOC: JER 08:39
DX: R06.02 Shortness of breath (principal)
CPT/HCPCS: 36415; 71046-TC-FY; 80053; 81003; 83735; 84443; 85025; 85379; 87086; 87186; 93005; 93010; 99285-25

== ENCOUNTER 2021-12-17 00:10 | Emergency (ER) | payer OTHER ==
[2021-12-17 00:19] VITALS: BP 164/80; PULSE 100; RESP 18; TEMP 98; BMI 22.1
[2021-12-17 02:15] LABS: EOS % 1.6 % (0-4.5); HEMATOCRIT 40.1 % (32.4-45.2); HEMOGLOBIN 13.2 GM/dL (10.7-15.3); LYMPH % 31.4 % (8-40); MCH 30.6 pg (25.7-33.7); MCHC 32.9 g/dl (32.0-36.0); MEAN CELL VOLUME 92.9 fl (80-96); MEAN PLT VOLUME 9.9 fl (7.5-11.1); MONO % 7.2 % (3.8-10.2); NEUT % 58.8 % (42.8-82.8); PLATELET COUNT 243 10^3/uL (134-434); RBC 4.31 M/mm3 (3.60-5.2); RDW 14.4 % (11.6-15.6); WHITE BLOOD COUNT 7.8 K/mm3 (4.0-10.0)
[2021-12-17 02:17] LABS: EPI CELLS 8 /uL (0-25.1); HYALINE CASTS 0 /uL (0-3.1); PH,URINE 6.5 (5.0-8.0); URINE APPEARANCE CLEAR; URINE BACTERIA 57 /uL (0-1359); URINE BILIRUBIN NEGATIVE (NEGATIVE); URINE COLOR YELLOW; URINE GLUCOSE (UA) NEGATIVE (NEGATIVE); URINE KETONE NEGATIVE (NEGATIVE); URINE LEUK ESTERASE NEGATIVE (NEGATIVE); URINE NITRITE NEGATIVE (NEGATIVE); URINE PROTEIN NEGATIVE (NEGATIVE); URINE RBC 19 /uL (0-23.9); URINE UROBILINOGEN 0.2 mg/dL (0.2-1.0); URINE WBC 2 /uL (0-25.8)
[2021-12-17 02:32] LABS: ALBUMIN 3.4 g/dl (3.4-5.0); CALCIUM 8.8 mg/dL (8.5-10.1)
[2021-12-17 02:33] LABS: BLOOD UREA NITROGEN 15.6 mg/dL (7-18)
[2021-12-17 02:34] LABS: CREATININE 0.7 mg/dL (0.55-1.3)
[2021-12-17 02:37] LABS: BILIRUBIN,TOTAL 0.2 mg/dL (0.2-1); TOT PROT 7.3 g/dl (6.4-8.2)
[2021-12-17 03:36] LABS: PLATELET ESTIMATE ADEQUATE
[2021-12-17] MEDS ORDERED: ACETAMINOPHEN 1000 MG/100 ML BAG IVPB ONE (03:44)
[2021-12-17] MEDS ORDERED: ACETAMINOPHEN INJECTION 100 ML IVPB ONE (03:51)
[2021-12-17] MEDS ORDERED: KETOROLAC TROMETHAMINE 30 MG/1 ML VIAL IVPUSH ONE (04:25)
[2021-12-17] MEDS ORDERED: KETOROLAC TROMETHAMINE 30 MG/1 ML VIAL ONE (04:45)
== END 2021-12-17 05:31 | disposition home or self-care (01) ==
LOC: JER 00:10
PROC: 3E0333Z Introduction of Anti-inflammatory into Peripheral Vein, Percutaneous Approach (ICD-10-PCS; principal; 2021-12-17)
PROC: 3E0333Z Introduction of Anti-inflammatory into Peripheral Vein, Percutaneous Approach (ICD-10-PCS; 2021-12-17)
DX: R05.1 Acute cough (principal); R07.9 Chest pain, unspecified
CPT/HCPCS: 0241U-QW; 36415; 71275-TC; 80053; 81003; 84484; 84703; 85025; 85379; 93005; 93010; 99285-25; Q9967

== ENCOUNTER 2022-06-11 18:33 | Emergency (ER) | payer OTHER ==
[2022-06-11 18:39] VITALS: BP 145/92; PULSE 87; RESP 18; TEMP 98.2; BMI 23.3
[2022-06-11] MEDS ORDERED: SODIUM CHLORIDE 0.9% 500 ML INFUS.BAG IV ONE (20:14)
[2022-06-11] MEDS ORDERED: morphine CARPU-JECT 2 MG/1 ML DISP.SYRIN IVPUSH ONE (20:15)
[2022-06-11 20:35] LABS: BASO % 1.3 % (0-2.0); HEMATOCRIT 38.2 % (32.4-45.2); LYMPH % 36.3 % (8-40); MCH 29.6 pg (25.7-33.7); MCHC 33.9 g/dl (32.0-36.0); MEAN CELL VOLUME 87.2 fl (80-96); MEAN PLT VOLUME 8.9 fl (7.5-11.1); MONO % 5.6 % (3.8-10.2); NEUT % 54.8 % (42.8-82.8); PLATELET COUNT 282 10^3/uL (134-434); RBC 4.38 M/mm3 (3.60-5.2); RDW 14.4 % (11.6-15.6); WHITE BLOOD COUNT 7.9 K/mm3 (4.0-10.0)
[2022-06-11 20:58] LABS: ALBUMIN 3.1 g/dl (3.4-5.0); BLOOD UREA NITROGEN 12.6 mg/dL (7-18); CALCIUM 8.2 mg/dL (8.5-10.1)
[2022-06-11 21:01] LABS: CREATININE 0.7 mg/dL (0.55-1.3)
[2022-06-11 21:03] LABS: BILIRUBIN,TOTAL 0.3 mg/dL (0.2-1); TOT PROT 7.1 g/dl (6.4-8.2)
[2022-06-11 21:20] LABS: EPI CELLS >36 /uL (0-25.1); HCG,QUALITATIVE URINE Negative; HYALINE CASTS 1 /uL (0-3.1); PH,URINE 5.5 (5.0-8.0); URINE APPEARANCE CLEAR; URINE BACTERIA 179 /uL (0-1359); URINE BILIRUBIN NEGATIVE (NEGATIVE); URINE COLOR YELLOW; URINE GLUCOSE (UA) NEGATIVE (NEGATIVE); URINE KETONE 1+ (NEGATIVE); URINE LEUK ESTERASE NEGATIVE (NEGATIVE); URINE NITRITE NEGATIVE (NEGATIVE); URINE PROTEIN NEGATIVE (NEGATIVE); URINE RBC 36 /uL (0-23.9); URINE UROBILINOGEN 0.2 mg/dL (0.2-1.0); URINE WBC 9 /uL (0-25.8)
[2022-06-11 21:23] LABS: INR 1.01 (0.83-1.09); PROTHROMBIN TIME (PATIENT) 11.7 SEC (9.7-13.0)
[2022-06-11] MEDS ORDERED: LIDOCAINE 5% TOPICAL PATCH TP ONE (23:12)
[2022-06-11] MEDS ORDERED: METHOCARBAMOL 500 MG TABLET PO ONE (23:13)
[2022-06-12] MEDS ORDERED: METHOCARBAMOL 500 MG TABLET ONE (01:29)
[2022-06-12] MEDS ORDERED: LIDOCAINE PATCH REMOVAL MC ONE (12:00)
== END 2022-06-12 04:02 | disposition home or self-care (01) ==
LOC: JER 18:33
PROC: 3E033GC Introduction of Other Therapeutic Substance into Peripheral Vein, Percutaneous Approach (ICD-10-PCS; principal; 2022-06-11)
DX: S39.012A Strain of muscle, fascia and tendon of lower back, initial encounter (principal); R10.9 Unspecified abdominal pain; X50.9XXA Other and unspecified overexertion or strenuous movements or postures, initial encounter
CPT/HCPCS: 36415; 72131-TC; 76830-TC; 80053; 81003; 84703; 85025; 85610; 99285-25

== ENCOUNTER 2023-03-30 18:59 | Emergency (ER) | payer OTHER ==
[2023-03-30 19:30] VITALS: BMI 25.6
[2023-03-30] MEDS ORDERED: ACETAMINOPHEN 500 MG TABLET (FP) PO ONE (21:24)
[2023-03-30] MEDS ORDERED: ACETAMINOPHEN 1000 MG/100 ML BAG IVPB ONE (21:27)
[2023-03-30] MEDS ORDERED: ACETAMINOPHEN 325 MG TABLET (FP) ONE (22:03)
[2023-03-30] MEDS ORDERED: ACETAMINOPHEN INJECTION 100 ML IVPB ONE (22:04)
[2023-03-30 22:25] LABS: BASO % 0.3 % (0-2.0); EOS % 3.3 % (0-4.5); HEMATOCRIT 39.7 % (32.4-45.2); LYMPH % 38.6 % (8-40); MCH 28.7 pg (25.7-33.7); MCHC 32.6 g/dl (32.0-36.0); MEAN CELL VOLUME 87.8 fl (80-96); MEAN PLT VOLUME 7.8 fl (7.5-11.1); MONO % 6.3 % (3.8-10.2); NEUT % 51.5 % (42.8-82.8); PLATELET COUNT 350 10^3/uL (134-434); RBC 4.52 M/mm3 (3.60-5.2); WHITE BLOOD COUNT 8.4 K/mm3 (4.0-10.0)
[2023-03-30 22:32] LABS: INR 0.95 (0.83-1.09)
[2023-03-30 22:34] LABS: ACTIVATED PTT 26.1 SECONDS (25.2-36.5)
[2023-03-30 22:50] LABS: POTASSIUM 4.8 mmol/L (3.5-5.1)
[2023-03-30 22:52] LABS: CALCIUM 8.9 mg/dL (8.5-10.1)
[2023-03-30 22:53] LABS: ALBUMIN 3.6 g/dl (3.4-5.0)
[2023-03-30 22:56] LABS: CREATININE 0.6 mg/dL (0.55-1.3)
[2023-03-30 22:57] LABS: BILIRUBIN,TOTAL 0.3 mg/dL (0.2-1); TOT PROT 8.2 g/dl (6.4-8.2)
[2023-03-31] MEDS ORDERED: KETOROLAC TROMETHAMINE 15 MG/ML VIAL IVPUSH ONE (00:54)
[2023-03-31] MEDS ORDERED: KETOROLAC TROMETHAMINE 15 MG/ML VIAL ONE (01:15)
[2023-03-31 02:41] VITALS: BP 121/76; PULSE 80; RESP 18; TEMP 98.7
== END 2023-03-31 02:39 | disposition home or self-care (01) ==
LOC: JER 18:59
PROC: 3E033NZ Introduction of Analgesics, Hypnotics, Sedatives into Peripheral Vein, Percutaneous Approach (ICD-10-PCS; principal; 2023-03-30)
PROC: 3E033GC Introduction of Other Therapeutic Substance into Peripheral Vein, Percutaneous Approach (ICD-10-PCS; 2023-03-30)
DX: M54.6 Pain in thoracic spine (principal); R07.9 Chest pain, unspecified
CPT/HCPCS: 36415; 71046-TC-FY; 71275-TC; 74174-TC; 80053; 83880; 84484; 84703; 85025; 85610; 85730; 93005; 93010; 99285-25; Q9967